=== PATIENT | female | born 1930 | race Caucasian/White ===

== ENCOUNTER 2016-08-25 13:14 | Emergency (ER) | payer MEDICARE ==
[2016-08-25 13:42] VITALS: BP 135/73
--- NOTE | 2016-08-26 00:47 | UC ---
Brady Bland Adam, scribed for Ananya Fitzgerald DO on 08/25/16 at 1455 . General HPI - HPI Summary HPI Summary: Pt is an 86 year old female presenting with cough and congestion. She states that for the past 2-3 weeks she has had a hacking cough and nasal congestion with blood. There is some sputum from the cough but no blood in the sputum. She also reports some sinus pressure, as well as fatigue after coughing spells. She has also been losing weight and atributes it to the fact that she recently relocated from her son and [id number]-led's house to assisted living. Her duaghter-in -law is an excellent broiler chef or cook and since she moved, she has not been eating as well. She has been having 2-3 BM's per week. Her daughter states that she has a Hx of alternating constipation and diarrhea. Pt does not take fiber. She recently moved from her daughter's house to her own apartment. She denies decreased appetite, SOB, CP, fever, chills, night sweats, N/V/D, abdominal pain , dysuria, ear ache, confusion, unsteadiness on feet, rash, and ANDERSEN. PMHx of CHF , COPD, HTN, ICD, and hypothyroidism. Pt is a former smoker. FMHx of cardiac disease and DM. - History of Current Complaint Chief Complaint: UCGeneralIllness Stated Complaint: SINUS ISSUE COUGH LOOSING WT Time Seen by Provider: 08/25/16 14:45 Hx Obtained From: Patient, Family/New Vehicle Sales Consultant Onset/Duration: Gradual Onset, Lasting Days, Still Present Onset Severity: Moderate Current Severity: Moderate Associated Signs & Symptoms: Positive: Cough, Other - Congestion. Negative: Abdominal Pain, Confusion, Chest Pain, Dizziness, Dysuria, Diaphoresis, Edema, Fever, Headache, Hemoptysis, Nausea, SOB, Vomiting, Wheezing, Weakness - Allergy/Home Medications Allergies/Adverse Reactions: Allergies Allergy/AdvReac Type Severity Reaction Status Date / Time Amiodarone Allergy Severe See Comment Verified 08/25/16 13:31 Home Medications: Home Medications Ipratropium Wood (Nasal) [Ipratropium Wood] 2 spray DAILY 08/25/16 [ History Confirmed 08/25/16] Levothyroxine TAB* [Synthroid 75 MCG TAB*] 100 mcg PO DAILY 08/25/16 [History Confirmed 08/25/16] Losartan TAB* [Cozaar TAB*] 2 tab BID 08/25/16 [History Confirmed 08/25/16] PMH/Surg Hx/FS Hx/Imm Hx Endocrine History Of: Reports: Thyroid Disease - meds Cardiovascular History Of: Reports: Cardiac Disorders, Hypertension - on medication, Pacemaker/ICD, Congestive Heart Failure Respiratory History Of: Reports: COPD - Surgical History Surgical History: Yes Surgery Procedure, Year, and Place: Bilateral hips - [place], 1997, 2004. Pacemaker, stent.- 2011. bilat cataract surgery. Apr 2016- Appendectomy - Family History Known Family History: Positive: Cardiac Disease, Diabetes, Other - Cancer - Social History Occupation: Retired Lives: Alone Alcohol Use: None Substance Use Type: None Smoking Status (MU): Former Smoker Have You Smoked in the Last Year: No When Did the Patient Quit Smoking/Using Tobacco: quit 20 years ago - Immunization History Most Recent Influenza Vaccination: 2015 Most Recent Tetanus Shot: within last 10 years Most Recent Pneumonia Vaccination: 2016 Review of Systems Constitutional: Negative Skin: Negative Eyes: Negative ENT: Nasal Discharge Respiratory: Cough Cardiovascular: Negative Gastrointestinal: Negative Genitourinary: Negative Motor: Negative Neurovascular: Negative Musculoskeletal: Negative Neurological: Negative Psychological: Negative All Other Systems Reviewed And Are Negative: Yes Physical Exam Triage Information Reviewed: Yes Appearance: Well-Appearing, No Pain Distress, Well-Nourished Vital Signs: Initial Vital Signs Temp 97.7 F 08/25/16 13:36 Pulse 89 08/25/16 13:36 Resp 18 08/25/16 13:36 BP 135/73 08/25/16 13:36 Pulse Ox 97 08/25/16 13:36 Vital Signs Reviewed: Yes Eyes: Positive: Conjunctiva Clear. Negative: Discharge ENT: Positive: Hearing grossly normal, Other: - Sinus tenderness over left maxillary sinus. Negative: Muffled/hoarse voice Neck exam: Normal Neck: Positive: Supple Respiratory: Positive: Lungs clear, No respiratory distress, No accessory muscle use, Other: - Very mildly prolonged expiration. Negative: Crackles, Rhonchi, Wheezing Cardiovascular: Positive: RRR, No Murmur Abdomen Description: Positive: Nontender, Soft. Negative: CVA Tenderness (R), CVA Tenderness (L), Distended, Guarding Bowel Sounds: Positive: Present Musculoskeletal Exam: Normal Neurological: Positive: Alert, Muscle Tone Normal Psychological Exam: Normal Psychological: Positive: Age Appropriate Behavior Skin Exam: Normal Skin: Positive: Other - Warm, dry, normal color Course/Dx - Differential Dx - Multi-Symptom Differential Diagnoses: Other - Lower respiratory infection, URI, bronchitis, COPD exacerbation Provider Diagnoses: Sinusitis Discharge - Discharge Plan Condition: Stable Disposition: HOME Prescriptions: Albuterol HFA INHALER* [Ventolin HFA Inhaler*] 2 puff INH Q4H PRN #1 mdi PRN Reason: Sob/Wheezing Amoxicillin/Clavulanate TAB* [Augmentin TAB 875*] 875 mg PO BID #20 tab Benzonatate CAP* [Tessalon CAP*] 100 mg PO TID PRN #30 cap PRN Reason: Cough guaiFENesin ER TAB [Mucinex*] 600 mg PO BID PRN #1 box PRN Reason: Cough Patient Education Materials: Sinusitis (ED) Referrals: Haylee Milan MD [Primary Care Provider] - (On 09/02/16 as planned.) Additional Instructions: TRY USING THE NETTI POT IN THE MORNINGS DISCUSSED. YOU MUST ALWAYS USE CLEAN WATER. REMEMBER, POSTURE IS AN IMPORTANT FACTOR IN SINUS DRAINAGE. MOVE YOUR NECK, BREATHE. INHALED BRONCHODILATORS: You have received a prescription for an inhaled bronchodilator -- a medication which stimulates the airways in the lung to dilate. This improves the flow of air in asthma, bronchitis, and emphysema. These medicines have some similarity to adrenaline, and can cause similar side effects: shakiness, racing heart, and a sense of nervousness. These side effects decrease with time. Contact your doctor if these side effects are severe. Do not over-use the medicine. Too-frequent use of the inhaler may make it ineffective. Call your doctor if the inhaler is not controlling your symptoms at the prescribed doses. EXPECTORANT MEDICATION: An expectorant medicine has been prescribed. This type of drug makes mucous thinner, helping the sinuses, nose, and bronchial tubes to remain free of pus and mucous. Expectorants make a cough less severe and more comfortable, and help infected sinuses drain. In general, antihistamines defeat the purpose of the expectorant by making mucous thicker. They should be avoided unless specifically recommended by your physician. TESSALON PERLES: You have received a prescription for Tessalon Perles (benzonatate). This is a non-narcotic medicine for relief of cough. It usually works in about 15- 20 minutes and lasts around four hours. Tessalon Perles should be swallowed. They should not be chewed or dissolved in the mouth (this can produce temporary numbing of the mouth and choking can occur). If you develop any adverse effects such as wheezing, shortness of breath, hives, rash, itching, or lightheadedness, please return at once. AUGMENTIN: Augmentin is a mixture of amoxicillin and clavulanate. Amoxicillin is a member of the penicillin family. It covers the germs likely to cause ear, bronchial, and urinary infections better than plain penicillin. The addition of clavulanate allows it to cover staph infections of the skin, as well as resistant cases of ear and sinus infections. Your physician has chosen Augmentin for you because of the special nature of your situation. Augmentin is best taken with meals. Nausea after taking the medication is rare, but can occur. Diarrhea can occur, particularly in small children. Vaginal yeast infections, and oral thrush in infants are also common. Contact your physician if these problems occur. Allergy to penicillins is common. If you have had an allergic reaction to any drug of the penicillin family, you should never take any other penicillin. Notify your doctor at once if you develop hives, shortness of breath, swelling, or faintness. ANY TIME YOU TAKE AN ANTIBIOTIC, IT IS IMPORTANT TO REPLENISH THE BODY'S BALANCE OF "GOOD" BACTERIA BY EATING HIGH QUALITY CULTURED FOOD SUCH YOGURT, SAURKRAUT OR ILENE CHI AND/OR TAKING A PROBIOTIC SUPPLEMENT. We did not discover any major red flags with regard to your recent weight loss of 2-3 lb. It seems likely the results of moving away from an outstanding broiler chef or cook. FStill, it is important for you to follow up with your Primary Care Physician as scheduled. Given your history of alternating constipation and diarrhea, it would probably be beneficial for you to use probiotic on a regular basis. You may also want to add taking a dose of fiber in the evenings before bed followed by 2-3 stewed prunes. We also recommend that you purchase a Squatty Potty. The documentation as recorded by the Brady barton Adam accurately reflects the service I personally performed and the decisions made by , Ananya Fitzgerald DO.
== END 2016-08-25 15:50 | disposition home or self-care (01) ==
LOC: UCEAST 13:14
DX: J32.9 Chronic sinusitis, unspecified (principal); E07.9 Disorder of thyroid, unspecified; Z95.0 Presence of cardiac pacemaker; I10 Essential (primary) hypertension; I50.9 Heart failure, unspecified; Z87.891 Personal history of nicotine dependence
CPT/HCPCS: 99212; G0463

== ENCOUNTER 2017-05-20 09:10 | Emergency (ER) | payer MEDICARE ==
[2017-05-20 09:58] VITALS: BP 134/66
--- NOTE | 2017-05-20 10:50 | UC ---
Complaint Female HPI - HPI Summary HPI Summary: 86 year old with urinary complaint. increased frequency some confusion per son. no n/v/d. no fever. no flank pain going on for 4 days - History Of Current Complaint Chief Complaint: UCGU Stated Complaint: UTI COMPLAINT Time Seen by Provider: 05/20/17 10:00 Onset/Duration: Gradual Onset Character: Dull Aggravating Factor(s): Nothing Alleviating Factor(s): Nothing Associated Signs And Symptoms: Negative: Fever, Back Pain, Vaginal Bleeding/ Discharge, Vaginal Discharge, Nausea, Vomiting(# Of Episodes =) - Allergies/Home Medications Allergies/Adverse Reactions: Allergies Allergy/AdvReac Type Severity Reaction Status Date / Time Amiodarone Allergy Severe See Comment Verified 05/20/17 09:58 Home Medications: Home Medications Baby Aspirin 1 tab PO DAILY 05/20/17 [History Confirmed 05/20/17] PMH/Surg Hx/FS Hx/Imm Hx Previously Healthy: Yes Cardiovascular History: Cardiac Disease - Surgical History Surgical History: Yes Surgery Procedure, Year, and Place: Bilateral hips - [place], 1997, 2004. Pacemaker, stent.- 2011. bilat cataract surgery. Apr 2016- Appendectomy - Family History Known Family History: Positive: Cardiac Disease, Diabetes, Other - Cancer - Social History Occupation: Retired Lives: Assisted Living Alcohol Use: None Substance Use Type: None Smoking Status (MU): Former Smoker Have You Smoked in the Last Year: No When Did the Patient Quit Smoking/Using Tobacco: quit 20 years ago - Immunization History Most Recent Influenza Vaccination: 03/19 Most Recent Tetanus Shot: within last 10 years Most Recent Pneumonia Vaccination: 2015 Review of Systems Genitourinary: Frequency, Urgency All Other Systems Reviewed And Are Negative: Yes Physical Exam Triage Information Reviewed: Yes Appearance: Well-Appearing, No Pain Distress, Well-Nourished Vital Signs: Initial Vital Signs Temp 97.7 F 05/20/17 09:52 Pulse 74 05/20/17 09:52 Resp 18 05/20/17 09:52 BP 134/66 05/20/17 09:52 Pulse Ox 100 05/20/17 09:52 Vital Signs Reviewed: Yes Eye Exam: Normal ENT Exam: Normal Dental Exam: Normal Neck exam: Normal Neck: Positive: 1 Respiratory Exam: Normal Cardiovascular Exam: Normal Abdominal Exam: Normal Musculoskeletal Exam: Normal Neurological Exam: Normal Psychological Exam: Normal Skin Exam: Normal Complaint Female Dx - Differential Dx/Diagnosis Differential Diagnosis/HQI/PQRI: Urinary Tract Infection Provider Diagnoses: UTI Discharge - Discharge Plan Condition: Good Disposition: HOME Prescriptions: Sulfamethox/Trimethoprim DS* [Bactrim DS 800/160 TAB*] 1 tab PO BID #10 tab Patient Education Materials: Urinary Tract Infection in Women (ED) Referrals: Haylee Milan MD [Primary Care Provider] - 3 Days
--- NOTE | 2017-05-22 16:51 | UC ---
Progress - Progress Note Progress Note: Pt with + UTI Pt on Bactrim No change 05/22/17 1379
== END 2017-05-20 11:00 | disposition home or self-care (01) ==
LOC: UCEAST 09:10
DX: Z87.891 Personal history of nicotine dependence (principal); Z79.82 Long term (current) use of aspirin; N39.0 Urinary tract infection, site not specified; B96.20 Unspecified Escherichia coli [E. coli] as the cause of diseases classified elsewhere
CPT/HCPCS: 81003; 87077; 87086; 87186; 99212; G0463

== ENCOUNTER 2018-01-21 11:29 | Emergency (ER) | payer MEDICARE ==
[2018-01-21 12:59] VITALS: BP 144/71
--- NOTE | 2018-01-21 13:34 | UC ---
Complaint Female HPI - HPI Summary HPI Summary: started 3-5 days ago with urinary frequency has been drinking more water and cranberry juice but little imprvement - History Of Current Complaint Chief Complaint: UCGU Stated Complaint: POSS UTI Time Seen by Provider: 01/21/18 12:54 Hx Obtained From: Patient, Family/Gear Technician Onset/Duration: Gradual Onset Timing: Constant Severity Initially: Mild Severity Currently: Mild Pain Intensity: 0 Character: Burning Aggravating Factor(s): Urination Alleviating Factor(s): Nothing Associated Signs And Symptoms: Positive: Negative - Allergies/Home Medications Allergies/Adverse Reactions: Allergies Allergy/AdvReac Type Severity Reaction Status Date / Time amiodarone Allergy See Comment Verified 01/21/18 13:02 PMH/Surg Hx/FS Hx/Imm Hx Previously Healthy: Yes Endocrine History: Hypothyroidism Cardiovascular History: Cardiac Disease, Hypertension Respiratory History: Asthma - Surgical History Surgical History: Yes Surgery Procedure, Year, and Place: Bilateral hips - , 1997, 2004. Pacemaker, stent.- 2011. bilat cataract surgery. Apr 2016- Appendectomy - Family History Known Family History: Positive: Cardiac Disease, Diabetes, Other - Cancer - Social History Occupation: Retired Lives: Alone Alcohol Use: None Substance Use Type: None Smoking Status (MU): Former Smoker Have You Smoked in the Last Year: No When Did the Patient Quit Smoking/Using Tobacco: quit 20 years ago - Immunization History Most Recent Influenza Vaccination: 03/19 Most Recent Tetanus Shot: within last 10 years Most Recent Pneumonia Vaccination: 2015 Review of Systems Constitutional: Negative Respiratory: Negative Cardiovascular: Negative Gastrointestinal: Negative Genitourinary: Dysuria, Frequency Neurological: Negative All Other Systems Reviewed And Are Negative: Yes Physical Exam Triage Information Reviewed: Yes Appearance: Well-Appearing, No Pain Distress, Well-Nourished Vital Signs: Initial Vital Signs Temp 97.7 F 01/21/18 12:52 Pulse 82 01/21/18 12:52 Resp 18 01/21/18 12:52 BP 144/71 01/21/18 12:52 Pulse Ox 98 01/21/18 12:52 Vital Signs Reviewed: Yes Neck exam: Normal Respiratory Exam: Normal Cardiovascular Exam: Normal Abdominal Exam: Normal Abdomen Description: Positive: Nontender. Negative: CVA Tenderness (R), CVA Tenderness (L) Musculoskeletal Exam: Normal Neurological Exam: Normal Psychological Exam: Normal Skin Exam: Normal Complaint Female Dx - Differential Dx/Diagnosis Differential Diagnosis/HQI/PQRI: Urinary Tract Infection, Other - vaginal yeast Provider Diagnoses: UTI Discharge - Sign-Out/Discharge Documenting (check all that apply): Patient Departure - Discharge Plan Condition: Good Disposition: HOME Prescriptions: Amoxicillin/Clavulanate TAB* [Augmentin TAB 500 mg*] 500 mg PO BID #14 tab Patient Education Materials: Urinary Tract Infection in Women (DC) Referrals: Haylee Milan MD [Primary Care Provider] - 2 Days (if no better) Additional Instructions: drink plenty of fluids use antibiotic as directed return if you experience fever or chills - Billing Disposition and Condition Condition: GOOD Disposition: Home
--- NOTE | 2018-01-23 15:57 | UC ---
- Progress Note Progress Note: Urine culture final with aerococcus urinae - report suggests susceptible to amoxicillin. On augmentin. No change Discharge - Sign-Out/Discharge Documenting (check all that apply): Post-Discharge Follow Up - Discharge Plan Condition: Good Disposition: HOME Prescriptions: Amoxicillin/Clavulanate TAB* [Augmentin TAB 500 mg*] 500 mg PO BID #14 tab Patient Education Materials: Urinary Tract Infection in Women (DC) Referrals: Haylee Milan MD [Primary Care Provider] - 2 Days (if no better) Additional Instructions: drink plenty of fluids use antibiotic as directed return if you experience fever or chills - Billing Disposition and Condition Condition: GOOD Disposition: Home
== END 2018-01-21 13:50 | disposition home or self-care (01) ==
LOC: UCEAST 11:29
DX: N39.0 Urinary tract infection, site not specified (principal); B96.89 Other specified bacterial agents as the cause of diseases classified elsewhere; Z88.8 Allergy status to other drugs, medicaments and biological substances; I10 Essential (primary) hypertension
CPT/HCPCS: 81003; 87086; 87088; 99212; G0463

== ENCOUNTER 2018-04-29 11:13 | Emergency (ER) | payer MEDICARE ==
[2018-04-29 12:02] VITALS: BP 117/41
--- NOTE | 2018-04-29 12:18 | UC ---
Complaint Female HPI - HPI Summary HPI Summary: Dysuria and incr. urination x3 days. lives alone. denies n/v, back pain, fever , abd pain. has never had this before. drinking cranberry juice. - History Of Current Complaint Chief Complaint: UCGU Stated Complaint: FREQUENT URINATION Time Seen by Provider: 04/29/18 11:45 Hx Obtained From: Patient, Family/Visual Display Manager - son ?: No Onset/Duration: Lasting Days Timing: Constant Severity Initially: Mild Severity Currently: None Pain Intensity: 0 Character: Not Applicable Aggravating Factor(s): Urination Alleviating Factor(s): Nothing Associated Signs And Symptoms: Positive: Negative - Risk Factors Ectopic Risk Factor: Negative Ovarian Torsion Risk Factor: Negative - Allergies/Home Medications Allergies/Adverse Reactions: Allergies Allergy/AdvReac Type Severity Reaction Status Date / Time amiodarone Allergy See Comment Verified 04/29/18 11:50 Home Medications: Home Medications Spiriva Inhaler DEVICE* [Tiotropium Inhaler DEVICE*] 1 puff INH DAILY 04/29/18 [ History Confirmed 04/29/18] PMH/Surg Hx/FS Hx/Imm Hx Previously Healthy: Yes Cardiovascular History: Cardiac Disease, Hypertension, Pacemaker/ICD, Atrial Fibrillation Respiratory History: COPD - Surgical History Surgical History: Yes Surgery Procedure, Year, and Place: Bilateral hips - , 1997, 2004. Pacemaker, stent.- 2011. bilat cataract surgery. Apr 2016- Appendectomy - Family History Known Family History: Positive: Cardiac Disease, Diabetes, Other - Cancer - Social History Alcohol Use: None Substance Use Type: None Smoking Status (MU): Former Smoker Have You Smoked in the Last Year: No When Did the Patient Quit Smoking/Using Tobacco: quit 20 years ago - Immunization History Most Recent Influenza Vaccination: 03/19 Most Recent Tetanus Shot: within last 10 years Most Recent Pneumonia Vaccination: 2016 Review of Systems Constitutional: Negative Skin: Negative Respiratory: Negative Cardiovascular: Negative Gastrointestinal: Negative Genitourinary: Dysuria, Frequency - DENIES HEMATURIA, VAGINAL PAIN, Urgency All Other Systems Reviewed And Are Negative: Yes Physical Exam Triage Information Reviewed: Yes Appearance: Well-Appearing, Other: - +HAS WALKER Vital Signs: Initial Vital Signs Temp 96.9 F 04/29/18 11:56 Pulse 75 04/29/18 11:56 Resp 20 10/28/18 11:56 BP 117/41 04/29/18 11:56 Pulse Ox 100 04/29/18 11:56 Vital Signs Reviewed: Yes Respiratory Exam: Normal Cardiovascular Exam: Normal Abdomen Description: Positive: Nontender, Soft, Other: - no CVAT BILAT.. Negative: CVA Tenderness (R), CVA Tenderness (L), Distended, Guarding Complaint Female Dx - Course Course Of Treatment: dysuria x2-3 days. afebrile. UA: +leuks, no nitrites. will send for cx. will tx empirically. - Differential Dx/Diagnosis Differential Diagnosis/HQI/PQRI: Sexually Transmitted Disease, Ureteral Stone, Urinary Tract Infection Provider Diagnoses: UTI Discharge - Sign-Out/Discharge Documenting (check all that apply): Patient Departure All imaging exams completed and their final reports reviewed: No Studies - Discharge Plan Condition: Good Disposition: HOME Prescriptions: Sulfamethox/Trimethoprim DS* [Bactrim DS 800/160 TAB*] 1 tab PO DAILY #7 tab Patient Education Materials: Urinary Tract Infection in Women (ED) Referrals: Haylee Milan MD [Primary Care Provider] - Additional Instructions: return if symptoms have not resolved. - Billing Disposition and Condition Condition: GOOD Disposition: Home
--- NOTE | 2018-05-01 16:52 | UC ---
- Progress Note Progress Note: urine + Strep Gallolyticus Pt on Bactrim await sensitivity no change 05/01/18 Discharge - Sign-Out/Discharge Documenting (check all that apply): Post-Discharge Follow Up All imaging exams completed and their final reports reviewed: No Studies - Discharge Plan Condition: Good Disposition: HOME Prescriptions: Sulfamethox/Trimethoprim DS* [Bactrim DS 800/160 TAB*] 1 tab PO DAILY #7 tab Sulfamethox/Trimethoprim DS* [Bactrim DS 800/160 TAB*] 1 tab PO DAILY #7 tab Patient Education Materials: Urinary Tract Infection in Women (ED) Referrals: Haylee Milan MD [Primary Care Provider] - Additional Instructions: return if symptoms have not resolved. - Billing Disposition and Condition Condition: GOOD Disposition: Home
== END 2018-04-29 12:50 | disposition home or self-care (01) ==
LOC: UCEAST 11:13
DX: N39.0 Urinary tract infection, site not specified (principal); I10 Essential (primary) hypertension; J44.9 Chronic obstructive pulmonary disease, unspecified; Z95.0 Presence of cardiac pacemaker; Z88.8 Allergy status to other drugs, medicaments and biological substances; Z87.891 Personal history of nicotine dependence
CPT/HCPCS: 81003; 87086; 99212; G0463

== ENCOUNTER 2018-05-02 11:30 | Inpatient (IN) | payer MEDICARE ==
[2018-05-02] MEDS ORDERED: NS 0.9% 1000 ML* 1,000 ML IV ONE (12:07)
--- NOTE | 2018-05-02 12:07 | ED ---
Neurological HPI - HPI Summary HPI Summary: This patient is an 87 year old MF brought in by ambulance to ED with a chief complaint of weakness and dizziness since 0800 this morning. The patient was in the bathroom where she tried to stand up but felt dizzy/light-headed then fell. She also reports trauma to her L ankle. After falling, she tried to get up, but couldnt because she was weak. The patient rates the pain 3/10 in severity. Symptoms aggravated by nothing. Symptoms alleviated by nothing. Patient reports light-headed when she fell and a small cut on her L elbow. Patient denies head trauma, LOC, CP, and abdominal pain. She is currently being treated for a UTI. - History of Current Complaint Chief Complaint: EDWeakness Stated Complaint: GENERAL ILLNESS Time Seen by Provider: 05/02/18 11:48 Hx Obtained From: Patient Onset/Duration: Sudden Onset, Started hours ago Onset Severity: Mild Current Severity: Mild Pain Intensity: 3 Pain Scale Used: 0-10 Numeric Aggravating: Nothing Alleviating: Nothing Associated Signs and Symptoms: Positive: Weakness, Dizziness, Lightheadness. Negative: Chest Pain - Additional Pertinent History Primary Care Physician: [id number] - Allergy/Home Medications Allergies/Adverse Reactions: Allergies Allergy/AdvReac Type Severity Reaction Status Date / Time amiodarone Allergy See Comment Verified 04/29/18 11:50 Home Medications: Home Medications Acetaminophen TAB* [Tylenol TAB*] 650 mg PO Q6H PRN 05/02/18 [History Confirmed 05/02/18] Aspirin EC TAB* [Ecotrin EC Low Dose 81 MG*] 81 mg PO DAILY 05/02/18 [History Confirmed 05/02/18] Calcium Carbonate/Vitamin D3 [Calcium 500 + Vit D Caplet] 1 tab PO DAILY [History Confirmed 05/02/18] Docusate CAP* [Colace Cap*] 100 mg PO BID PRN 05/02/18 [History Confirmed ] Gabapentin CAP(*) [Neurontin 300 CAP(*)] 1,500 mg PO BEDTIME 05/02/18 [History Confirmed 05/02/18] Ipratropium Br (Nf)0.03% Nasal [Ipratropium [place]] 2 spray BOTH NARES QAM PRN 05/02/18 [History Confirmed 05/02/18] Levothyroxine TAB* [Synthroid TAB*] 88 mcg PO DAILY 05/02/18 [History Confirmed 05/02/18] Magnesium Oxide [Magnesium] 250 mg PO DAILY 05/02/18 [History Confirmed 05/02/18 ] Simvastatin TAB(NF) [Zocor(NF)] 20 mg PO QPM 05/02/18 [History Confirmed ] Sulfamethox/Trimethoprim DS* [Bactrim DS 800/160 TAB*] 1 tab PO BID 05/02/18 [ History Confirmed 05/02/18] proPAFENone TAB* [Rythmol*] 150 mg PO BID 05/02/18 [History Confirmed 05/02/18] PMH/Surg Hx/FS Hx/Imm Hx Endocrine/Hematology History: Reports: Hx Thyroid Disease Denies: Hx Diabetes Cardiovascular History: Reports: Hx Congestive Heart Failure, Hx Hypertension - on medication, Hx Pacemaker/ICD, Other Cardiovascular Problems/Disorders - HEART DISEASE Respiratory History: Reports: Hx Chronic Obstructive Pulmonary Disease (COPD) Denies: Hx Asthma GI History: Reports: Hx Obstructive Bowel Denies: Hx Ulcer Musculoskeletal History: Reports: Hx Arthritis, Hx Back Problems Sensory History: Reports: Hx Cataracts, Hx Contacts or Glasses Denies: Hx Hearing Aid Opthamlomology History: Reports: Hx Cataracts, Hx Contacts or Glasses - Surgical History Surgery Procedure, Year, and Place: Bilateral hips - [place], 1997, 2004. Pacemaker, stent.- 2011. bilat cataract surgery. Apr 2016- Appendectomy Hx Anesthesia Reactions: No - Immunization History Date of Influenza Vaccine: 2017 Infectious Disease History: No Infectious Disease History: Reports: Hx Shingles Denies: Hx Clostridium Difficile, Hx Hepatitis, Hx Human Immunodeficiency Virus (HIV), Hx of Known/Suspected MRSA, Hx Tuberculosis, Hx Known/Suspected VRE , Hx Known/Suspected VRSA, History Other Infectious Disease, Traveled Outside the [place] in Last 30 Days - Family History Known Family History: Positive: Cardiac Disease, Diabetes, Other - Cancer - Social History Alcohol Use: None Substance Use Type: Reports: None Hx Tobacco Use: No Smoking Status (MU): Former Smoker Have You Smoked in the Last Year: No Review of Systems Negative: Chest Pain Negative: Abdominal Pain Positive: Other - trauma to L ankle, denies head trauma Positive: Other - small cut on L elbow Neurological: Other - dizziness/light-headedness; denies LOC Positive: Weakness All Other Systems Reviewed And Are Negative: Yes Physical Exam - Summary Physical Exam Summary: GENERAL: Patient is a well-developed and nourished F who is lying comfortable in the stretcher. Patient is not in any acute respiratory distress. HEAD AND FACE: Normocephalic EYES: PERRLA, EOMI x 2. EARS: Hearing grossly intact. MOUTH: Oropharynx within normal limits. NECK: Supple, trachea is midline, no adenopathy, no JVD, no carotid bruit. CHEST: Symmetric, no tenderness at palpation LUNGS: Clear to auscultation bilaterally. No wheezing or crackles. CVS: Regular rate and rhythm, S1 and S2 present, no murmurs or gallops appreciated. ABDOMEN: Soft, non-tender. Bowel sounds are normal. No abdominal abnormal pulsations. EXTREMITIES: Full ROM in all major joints, no edema, no cyanosis or clubbing. Tenderness to palpation over the lateral malleolus on the L side of her L foot with swelling and ecchymosis over the area, but has FROM of the L foot. NEURO: Alert and oriented x 3. No acute neurological deficits. Speech is normal and follows commands. SKIN: Dry and warm. Skin tear to L elbow but has FROM. GCS: 15 Triage Information Reviewed: Yes Vital Signs On Initial Exam: Initial Vitals Temp Pulse Resp BP Pulse Ox 97.9 F 71 19 121/44 99 05/02/18 11:43 05/02/18 11:43 05/02/18 11:43 05/02/18 11:43 05/02/18 11:43 Vital Signs Reviewed: Yes Diagnostics - Vital Signs Vital Signs Temp Pulse Resp BP Pulse Ox 05/02/18 11:43 97.9 F 71 19 121/44 99 - Laboratory Result Diagrams: 05/03/18 05:17 05/03/18 05:17 Lab Statement: Any lab studies that have been ordered have been reviewed, and results considered in the medical decision making process. - Radiology CXR Radiology Interpretation Completed By: Radiologist - NO ACTIVE CARDIOPULMONARY DISEASE IS NOTED. PACEMAKER LEADS ARE IN PLACE. Dr. Martinez has reviewed this radiology report. L ankle XR Radiology Interpretation Completed By: Radiologist - OSTEOPENIA WITH OBLIQUE NONDISPLACED FRACTURE OF THE DISTAL FIBULA. Dr. Martinez has reviewed this radiology report. - CT Brain CT CT Interpretation Completed By: Radiologist - No intracranial mass or hemorrhage is noted. Chronic ischemic White matter change and atrophy. Dr. Martinez has reviewed this radiology report. - EKG 1212 Cardiac Rate: NL - 70 BPM EKG Rhythm: Sinus Rhythm Summary of EKG Findings: incomplete RBBB, new from 04/19/2016. Course/Dx - Course Assessment/Plan: This patient is an 87 year old MF brought in by ambulance to ED with a chief complaint of weakness and dizziness since 0800 this morning. In the ED course, the patient was given Reglan, Antivert, and fluids. EKG done at 1212 reveals NSR at 70 BPM and incomplete RBBB which is new from 04/19/2016. CXR reveals NO ACTIVE CARDIOPULMONARY DISEASE IS NOTED. PACEMAKER LEADS ARE IN PLACE. L ankle XR reveals OSTEOPENIA WITH OBLIQUE NONDISPLACED FRACTURE OF THE DISTAL FIBULA. Brain CT reveals No intracranial mass or hemorrhage is noted. Chronic ischemic White matter change and atrophy. Workup is remarkable with hemoglobin of 5.6. This patient will be admitted. Case discussed with hospitalist. I discussed results with patient. The patient agrees with this plan. - Diagnoses Provider Diagnoses: Anemia, Fracture of left ankle - Physician Notifications Discussed Care Of Patient With: Tila Herrera Time Discussed With Above Provider: 13:22 Instructed by Provider To: Admit As Inpatient - Critical Care Time Critical Care Time: 30-74 min Discharge - Sign-Out/Discharge Documenting (check all that apply): Patient Departure - admit - Discharge Plan Condition: Stable Disposition: ADMITTED TO [facility] - Billing Disposition and Condition Condition: STABLE Disposition: Admitted to [facility] - Attestation Statements Document Initiated by Scribe: Yes Documenting Scribe: Jas Gorman Provider For Whom Zenobia is Documenting (Include Credential): Zan Martinez MD Scribe Attestation: Jas Bland, scribed for Zan Martinez MD on 05/04/18 at 0413. Scribe Documentation Reviewed: Yes Provider Attestation: The documentation as recorded by the annaibJas welsh accurately reflects the service I personally performed and the decisions made by me, Zan Martinez MD
[2018-05-02] MEDS ORDERED: Metoclopramide IV* 5 MG/ML 2 ML VIAL IV ONE (12:08)
[2018-05-02] MEDS ORDERED: Meclizine TAB* 12.5 MG PO ONE (12:08)
[2018-05-02 12:31] LABS: Hematocrit 18 % (35-47); Hemoglobin 5.6 g/dl (12.0-16.0); Mean Corpuscular HGB Conc 31 g/dl (31-36); Mean Corpuscular Hemoglobin 23 pg (27-31); Mean Corpuscular Volume 75 fL (80-97); Mean Platelet Volume 7.5 um3 (7.4-10.4); Platelet Count 320 10^3/ul (150-450); Red Blood Count 2.43 10^6/ul (4.00-5.40); Red Cell Distribution Width 19 % (10.5-15)
[2018-05-02 12:38] LABS: INR 1.4 (0.77-1.02)
[2018-05-02 12:45] LABS: EGFR Non-African American 23.8 (>60)
[2018-05-02 12:56] LABS: ABS Basophils 0.1 10^3/ul (0-0.2); ABS Eosinophils 0 10^3/ul (0-0.6); ABS Lymphocytes 1.1 10^3/ul (1.0-4.8); ABS Monocytes 0.8 10^3/ul (0-0.8); ABS Nucleated RBC 0 10^3/ul; Eosinophil % 0.2 % (0-6); Lymphocyte % 11.4 % (25-47); Nucleated Red Blood Cells % 0
--- NOTE | 2018-05-02 13:21 | RAD ---
Indication: Cough. Single frontal view of the chest performed at 1220 hours was reviewed. Comparison is made with previous exam dated September 02, 2016. No mediastinal shift is noted. Heart is of normal size and configuration. Lung meza appear clear. Pacemaker leads are in place. No changes noted since prior exam. IMPRESSION: NO ACTIVE CARDIOPULMONARY DISEASE IS NOTED. PACEMAKER LEADS ARE IN PLACE.
--- NOTE | 2018-05-02 13:24 | RAD ---
HISTORY: Injury, left ankle pain and bruising COMPARISONS: None VIEWS: 3 , Frontal, lateral, and oblique views of the left ankle FINDINGS: BONE DENSITY: There is diffuse osteopenia. BONES: There is an oblique nondisplaced fracture of the distal fibula. JOINTS: There is no arthropathy. ALIGNMENT: There is no dislocation. SOFT TISSUES: Unremarkable. OTHER FINDINGS: None. IMPRESSION: OSTEOPENIA WITH OBLIQUE NONDISPLACED FRACTURE OF THE DISTAL FIBULA.
--- NOTE | 2018-05-02 13:54 | RAD ---
Indication: Urinary tract infection, weakness. CT of the brain performed without IV contrast. Ventricular structures are midline. No midline shift is noted. The extra-axial spaces are unremarkable. There is no evidence of intracranial mass or hemorrhage. No other high or low density lesions identified. Prominent atrophy and periventricular signal abnormalities consistent with chronic ischemic White matter change is noted. Mastoid air cells and paranasal sinuses are unremarkable. IMPRESSION: No intracranial mass or hemorrhage is noted. Chronic ischemic White matter change and atrophy.
[2018-05-02] MEDS ORDERED: Al Hydrox/Mg Hydrox/Simet LIQ* 30 ML UDC PO PRN (14:29)
[2018-05-02] MEDS ORDERED: Ondansetron INJ* 2 MG/ML VIAL IV PRN (14:29)
--- NOTE | 2018-05-02 15:12 | PN ---
Hospitalist Progress Note Date of Service: 05/02/18 HOSPITALIST ADDENDUM Case reviewed and d/w Ashlee Jones [facility]. Mrs West is an 87yo F with PMH of Afib on Xarelto, HTN, CAD, who presents to ED with c/o weakness, near syncope and fall. She's found to have severe anemia, but no overt signs of active GI bleed at this time. She'll be admitted to ICU for close monitoring, started on PPI, transfused 2 PRBC, and GI consult will be requested. She was also found to have left distal fibula fracture and Ortho will be called. I'm in agreement with current management.
[2018-05-02] MEDS: NS 0.9% 1000 ML* 1,000 ML IV SCH (15:30)
[2018-05-02 17:59] LABS: Urine Appearance Cloudy; Urine Blood Negative (Negative); Urine Color Yellow; Urine Ketones Negative (Negative); Urine Protein Negative (Negative); Urine Red Blood Cell Absent (Absent); Urine Specific Gravity 1.011 (1.010-1.030); Urine Urobilinogen Negative (Negative); Urine White Blood Cell 1+(6-10/hpf) (Absent)
[2018-05-02] MEDS: Atorvastatin* 10 MG TAB PO SCH (18:42)
--- NOTE | 2018-05-02 20:03 | HP ---
AMENDED REPORT NOW INCLUDES DESIGNATED COSIGNER CC: Dr. Haylee Milan; Dr. Ceci Osuna. * HISTORY AND PHYSICAL: DATE OF ADMISSION: 05/02/18 PRIMARY CARE PROVIDER: Dr. Haylee Milan. HAND CANDY DIPPER: Dr. Ceci Osuna. ATTENDING PHYSICIAN: Dr. Tila Perez * (dictated by Ashlee Jones NP). CHIEF COMPLAINT: 1. Weakness. 2. Dizziness. 3. Fall. HISTORY OF PRESENT ILLNESS: Ms. West is an 87-year-old female with past medical history of AFib, on chronic anticoagulation; coronary artery disease; hypertension; hyperlipidemia; COPD; hypothyroidism; and CKD, stage 3, who presents to the emergency room today after sustaining a fall at home. The patient notes that she was up this morning in her bathroom at approximately 6:30 , she began feeling weak, dizzy and fell when she getting off the toilet. She was not able to get up off the floor herself, but she was able to crawl to an area of her apartment that has a call button that she can press in case of emergencies. She pressed the call button and the staff at the apartment complex called EMS. The patient notes that she has been dizzy and significant short of breath for the past week; however, her son notes that approximately 1 month ago, she stopped exercising on her recumbent bike due to increasing shortness of breath. This is new for the patient. Although she has COPD, she has been able to exercise on her recumbent bike and attend exercise classes without significant shortness of breath in the past. The son also feels as though the patient looks slightly pale. The son reports that the patient's last fall prior to this was approximately 1-1/2 years ago and was a mechanical fall. The patient was seen at [facility] this past Monday and diagnosed with a urinary tract infection, for which she was prescribed Bactrim. She has been taking this as ordered. She denies any urinary symptoms on exam. In the emergency room, the patient had labs, which showed anemia with a hemoglobin of 5.6, as well as acute kidney injury with an elevated creatinine and an elevated lactic acid. Her troponin was 0.01. She had a chest x-ray, which showed no acute findings. She had a brain CT, which showed no acute findings. She additionally had an ankle x-ray due to some edema and bruising noted to her left ankle. The ankle x-ray was significant for an oblique nondisplaced fracture of the distal fibula that was splinted in the emergency room. She additionally had a stool occult for blood, which was negative. Because of the concern for her significant anemia, the Hospitalist service was asked to evaluate for admission. PAST MEDICAL HISTORY: 1. AFib, on chronic anticoagulation. 2. Coronary artery disease. 3. Hypertension. 4. Hyperlipidemia. 5. COPD. 6. Hypothyroidism. 7. CKD, stage 3. PAST SURGICAL HISTORY: 1. Appendectomy. 2. Cardiac catheterization with stent placement in 2011. 3. Pacemaker placement in 2012. 4. Bilateral total hip arthroplasties. 5. Bilateral cataract extraction. 6. Tonsillectomy with adenoidectomy. HOME MEDICATIONS: 1. Acetaminophen 650 mg p.o. q.6 hours p.r.n. 2. Aspirin 81 mg p.o. daily. 3. Calcium 500 plus vitamin D 1 tab p.o. daily. 4. Docusate 100 mg p.o. b.i.d. p.r.n. 5. Gabapentin 1500 mg p.o. at bedtime. 6. Ipratropium 2 sprays both nares daily p.r.n. 7. Levothyroxine 88 mcg p.o. daily. 8. Losartan 50 mg p.o. b.i.d. 9. Magnesium oxide 250 mg p.o. daily. 10. Propafenone 150 mg p.o. b.i.d. 11. Xarelto 15 mg p.o. daily. 12. Simvastatin 20 mg p.o. daily. 13. Spiriva 1 puff daily. 14. Bactrim DS 800/160 one tab p.o. b.i.d. ALLERGIES: AMIODARONE. FAMILY HISTORY: Father at 47, had diabetes. Mother at 53, had lung cancer. Sister , had diabetes. SOCIAL HISTORY: The patient has a 50-pack year smoking history. She denies any alcohol or recreational drug use. She is retired. She lives in a senior apartment in [place]. The patient's son, Rogers Houston, will be her surrogate decision maker in the event she is unable to make her own decisions. His phone number is [phone]. REVIEW OF SYSTEMS: An 11-point review of systems was performed and all the pertinent positive and negative findings are in the HPI. All other systems are negative. PHYSICAL EXAMINATION GENERAL: Ms. West is a well-developed, well-nourished, elderly white woman, lying in bed, in no acute distress. She appears her stated age. VITAL SIGNS: Temp 97.9, heart rate 71, respiratory rate 20, oxygen saturation 99% on 2 L nasal cannula, blood pressure 121/44. HEENT: Head is normocephalic and atraumatic. Visual meza are grossly intact. Pupils are equal, round, and reactive to light and accommodation. Extraocular movements intact. Hearing is grossly intact. Mucous membranes are moist and without lesions. NECK: Full range of motion. Thyroid not palpable. Trachea at midline. No lymphadenopathy. RESPIRATORY: Symmetrical chest expansion. No chest wall deformities. Lungs are clear to auscultation throughout. No rhonchi, wheezes, or rubs. CARDIOVASCULAR: Regular rate and rhythm. S1, S2 present. No murmurs, rubs, or gallops. No JVD. ABDOMEN: Soft, nontender to palpation. Bowel sounds are normoactive throughout. No bruits appreciated. No hepatosplenomegaly. EXTREMITIES: Skin warm and smooth bilaterally. No edema to the right lower extremity. The left lower extremity cannot be assessed for edema due to the presence of a splint. Pedal pulse is 2+ to the right lower extremity. The patient has intact movement and sensation to the left toes. MUSCULOSKELETAL: Full range motion except for the splinted left ankle. NEURO: Awake, alert, and oriented x4, though slightly forgetful. Cranial nerves II through XII grossly intact. Moves all extremities. Strength is 4/5 in upper extremities bilaterally. SKIN: Grossly intact without lesions. DIAGNOSTIC STUDIES/LAB DATA: WBC 10.0, RBC 2.43, hemoglobin 5.6, hematocrit 18 , platelets 320. INR 1.4. Sodium 135, potassium 4.8, chloride 104, carbon dioxide 22, BUN 36, creatinine 1.99, glucose 85, lactic acid 2.2, magnesium 2.2. Troponin 0.01. TSH 0.21. Chest x-ray reads as no active cardiopulmonary disease, pacemakers leads are in place. This was personally reviewed. Brain CT reads as no intracranial mass or hemorrhage is noted, chronic ischemic white matter change and atrophy. Left ankle x-ray reads as osteopenia with oblique nondisplaced fracture of the distal fibula. EKG shows normal sinus rhythm with a rate of 70. No ischemic changes. This was personally reviewed. ASSESSMENT AND PLAN: Ms. West is an 87-year-old female with past medical history of atrial fibrillation, coronary artery disease, hypertension, hyperlipidemia, chronic obstructive pulmonary disease, hypothyroidism and chronic kidney disease stage 3, who presents to the emergency room today after a fall secondary to dizziness and weakness and was found to be severely anemic with a hemoglobin of 5.6. The patient will be admitted inpatient for: 1. Anemia. The patient's H and H is currently 5.6 and 18. She has been ordered 2 units of packed red blood cells. She will have a CBC an hour after the second unit. Her guaiac in the emergency room was negative and there was no clear source of bleeding, although this does appear to be a slow bleed due to the length of her symptoms. I have consulted Dr. Alvarado with Gastroenterology, who will see the patient today. She will likely do an EGD tomorrow with possible colonoscopy on Monday. I will hold the patient's Xarelto at this point, though I will continue her aspirin due to the presence of coronary artery disease and a stent. The patient has a CHADS2-VASc score of 4, indicating a 4.8% risk of cerebrovascular accident per year and a HAS-BLED score of 4, indicating 8.7 bleeds per 100 patient years. Therefore, at this point, the risk of bleeding is greater than the risk of stroke and therefore her Xarelto will be held. I have additionally placed her on IV Protonix q.12. Dr. Alvarado has requested iron studies, which I have ordered and are pending at this time. The patient's lactic acid was elevated on admission. I suspect this was related to hypovolemia and not an infectious process. She was given IV fluids and her lactic has corrected to 0.9. 2. Syncope. The patient had a syncopal episode after experiencing weakness and dizziness. This is secondary to her anemia and hypovolemia. I will resuscitate her with normal saline, though I do not believe she needs a cardiac workup for her syncope. 3. [id number] kidney injury. The patient's creatinine today is 1.99. It appears as though her baseline is around 1.3. I will give her normal saline at a rate of 125 and we will recheck her BMP in the morning. This acute kidney injury is secondary to hypovolemia. 4. Left ankle fracture. The patient's left ankle was splinted in the emergency room. She does not complain of any pain to the left ankle at this time. I will consult Ortho to determine further management, though at this point, she will be non-weight bearing to the left leg. 5. Urinary tract infection. The patient was diagnosed with a urinary tract infection on Monday at [facility]. Her urine culture at that point grew Streptococcus gallolyticus. We will check another urinalysis and urine culture here, though I will keep her on Bactrim at this time. I will note that the Bactrim has been decreased from double strength to regular strength due to her worsened kidney function. I may ultimately change her to ceftriaxone pending the urine culture sensitivities. 6. Atrial fibrillation. The patient is in normal sinus rhythm at this time. As I noted above, we are holding her Xarelto due to her increased risk of bleeding. I will continue her propafenone. 7. Coronary artery disease. I will continue the patient's aspirin and statins. 8. Hypertension. The patient is currently normotensive. I will hold her losartan at this point due to her bump in creatinine. This can likely be restarted tomorrow when her kidney function is back to baseline. 9. Chronic obstructive pulmonary disease. The patient can continue her Spiriva. 10. Hypothyroidism. The patient can continue her levothyroxine. Her TSH is low, though I will defer any dose adjustments to her primary care provider. 11. Fluids, electrolytes, and nutrition: I have placed this patient on fluids as noted above. Electrolytes are within normal limits. She is n.p.o. at this time pending a GI consult. 12. Code status: The patient wishes to be a DNR. There is a MOLST on file with the hospital. 13. DVT prophylaxis: According to the DVT Risk Assessment, the patient scores a 5 putting her at highest risk. She will not receive VTE medication due to her anemia and as noted above, I am holding her Xarelto. I have ordered SCDs for DVT prophylaxis. TIME SPENT: Approximately 60 minutes were spent on this admission, greater than half of that time spent with the patient and her son obtaining my history, performing my physical exam, and reviewing the plan of care. This case has been reviewed with my attending, Dr. Perez, who is in agreement with the plan of care. ASHLEE JONES, STRATEGY LEAD [id number]/CPS #: [id number] BERENICE
[2018-05-02] MEDS ORDERED: Sulfamethox/Trimethoprim SS 400/80* TAB PO SCH (21:00)
--- NOTE | 2018-05-02 21:01 | CONS ---
GASTROENTEROLOGY CONSULTATION REPORT: DATE OF CONSULT: 05/02/18 REQUESTING PHYSICIAN: Dr. Perez. REASON FOR CONSULT: Severe anemia. HISTORY OF PRESENT ILLNESS: Ms. West is an 87-year-old woman with a history of AFib, on Xarelto, CAD s/p pacemaker, hypertension, COPD, who is brought in to the ER with dizziness, near syncope, and fall. Ms. West has noticed increased dizziness and weakness over past few days to weeks. She says that she has been getting antibiotic treatments for UTI recently. This morning, she felt quite lightheaded and nearly passed out. She fell and injured her left ankle. She was brought to the ER for evaluation. Hemodynamically, she has been stable since arrival to the ER with normal heart rate in the 70s and blood pressure that was 130/94 on arrival. Further evaluation remarkable for a hematocrit of 18 and a hemoglobin of 5.6. Imaging of her ankle demonstrated a distal fibular fracture on the left. Admitted to ICU for monitoring. GI consulted given the anemia. On interview, Ms. West says that she is feeling tired but overall fairly well. She denies any GI symptoms including heartburn, dysphagia, nausea, vomiting, abdominal pain, significant constipation, or diarrhea. She says that she has a bowel movement every day or every other day, which tends to be soft. Her stools tend to be brown. She has not noted any melena or hematochezia. She does not think she has ever had an upper endoscopy. She thinks she has had at least 1 or 2 colonoscopies in the past when she was in [place]. She thinks their may have been mention of a polyp, but she is not certain. She is only on Xarelto and aspirin. She does not have any other NSAID use. She is not on a PPI. PAST MEDICAL HISTORY: AFib, on Xarelto; hypertension; coronary artery disease; thyroid disease; arthritis; cataracts; history of a pacemaker placement; COPD. PAST SURGICAL HISTORY: Bilateral hip replacements, pacemaker and stent placement in 2012, cataract surgery, appendectomy. MEDICATIONS: Include: 1. Aspirin 81 mg daily. 2. Xarelto 15 mg daily. 3. Spiriva. 4. Propafenone. 5. Losartan. 6. Levothyroxine. 7. Gabapentin. 8. Bactrim. 9. DuoNeb. 10. Docusate. 11. Tylenol as needed. ALLERGIES: AMIODARONE listed. FAMILY HISTORY: The patient denies any history of GI or liver disease. No known colon polyps or cancer in the family. SOCIAL HISTORY: The patient denies any history of alcohol use. No tobacco or drug use. She is a former smoker. REVIEW OF SYSTEMS: The patient reports some ankle pain related to the fibular fracture. Denies any other symptoms on a 12-point review of systems. PHYSICAL EXAM: Vital Signs: Heart rate 72, blood pressure 130/94, 98% on room air. General: Elderly, pleasant woman. Pale. No acute distress. HEENT: Mucous membranes moist. Oropharynx is clear. Cardiovascular: Regular rate and rhythm. Lungs: Clear to auscultation bilaterally. Normal work of breathing. Abdomen: Positive bowel sounds. Soft, nontender, nondistended. Extremities: No edema. Left ankle is in a brace. LAB DATA: Labs reviewed. White count 10, hemoglobin 5.6, hematocrit 18, MCV 75 , RDW 19. INR 1.4. BUN 36, creatinine 1.99. Lactic acid normal at 0.9. LFTs unremarkable. TSH low at 0.21. Iron studies requested and demonstrated iron deficiency with iron that is less than 15 and a TSAT of 3 and ferritin is 10.3. DIAGNOSTIC STUDIES: Chest x-ray reviewed. No active disease. Demonstrates pacemaker leads. An ankle x-ray demonstrates a fibular fracture. A brain CT negative for any mass or hemorrhage. IMPRESSION AND RECOMMENDATIONS: is an 87-year-old woman with a history of coronary artery disease, status post pacemaker placement; atrial fibrillation, on Xarelto; hypertension; and chronic obstructive pulmonary disease, who is admitted with near syncope and fall resulting in fibular fracture. Workup notable for significant iron deficiency anemia. Ms. West has not demonstrated any overt gastrointestinal blood loss. Stool occult was negative in the ER; however, she has an unexplained significant iron deficiency. Her presentation warrants endoscopic evaluation for potential gastrointestinal source of blood loss, particularly in the setting of aspirin and Xarelto usage. - Okay for diet tonight. Keep n.p.o. after midnight. - PPI b.i.d. - IV transfusion per primary team. The patient receiving 2 units of blood tonight. - Xarelto on hold. - The patient will need iron repletion. Consider oral supplementation versus iron repletion - We will plan for EGD tomorrow to assess for a potential upper gastrointestinal source of blood loss. If EGD is negative, then patient will likely require colonoscopy. This may be a bit challenging given the fact that she is quite elderly and frail with a fibular fracture. We will need to have discussion regarding the safest way for her to undergo the colonoscopy prep if it is felt to be indicated after the EGD is completed. Thank you very much for this consult. [id number]/[facility] #: [id number] BERENICE
[2018-05-02] MEDS: Gabapentin CAP(*) 300 MG PO SCH (22:04)
[2018-05-02] MEDS: Pantoprazole IV* 40 MG IV SCH (22:04)
[2018-05-02] MEDS: proPAFENone TAB* 150 MG PO SCH (22:04)
[2018-05-02 23:29] LABS: Hematocrit 21 % (35-47); Hemoglobin 6.6 g/dl (12.0-16.0)
[2018-05-03] MEDS: cefTRIAXone(*) 1 GM in NS 0.9% 50 ML* 50 ML IVPB SCH ×2 (02:23→23:23)
[2018-05-03 05:26] LABS: ABS Basophils 0 10^3/ul (0-0.2); ABS Eosinophils 0.1 10^3/ul (0-0.6); ABS Lymphocytes 1.2 10^3/ul (1.0-4.8); ABS Monocytes 1.1 10^3/ul (0-0.8); ABS Neutrophils 5.2 10^3/ul (1.5-7.7); ABS Nucleated RBC 0 10^3/ul; Eosinophil % 1.1 % (0-6); Hematocrit 26 % (35-47); Hemoglobin 8.3 g/dl (12.0-16.0); Lymphocyte % 15.4 % (25-47); Mean Corpuscular HGB Conc 32 g/dl (31-36); Mean Corpuscular Hemoglobin 27 pg (27-31); Mean Corpuscular Volume 83 fL (80-97); Mean Platelet Volume 7.6 um3 (7.4-10.4); Nucleated Red Blood Cells % 0.2; Platelet Count 212 10^3/ul (150-450); Red Blood Count 3.11 10^6/ul (4.00-5.40); Red Cell Distribution Width 19 % (10.5-15); White Blood Count 7.5 10^3/ul (3.5-10.8)
[2018-05-03 05:44] LABS: EGFR Non-African American 44.8 (>60)
[2018-05-03] MEDS: Levothyroxine TAB* 88 MCG TAB PO SCH (07:07)
[2018-05-03] MEDS: proPAFENone TAB* 150 MG PO SCH ×2 (08:35→20:03)
[2018-05-03] MEDS: Pantoprazole IV* 40 MG IV SCH ×2 (08:35→20:06)
[2018-05-03] MEDS: Acetaminophen TAB* 325 MG PO PRN (08:35)
[2018-05-03] MEDS: Aspirin EC TAB* 81 MG TAB.EC PO SCH (08:35)
[2018-05-03] MEDS ORDERED: Spiriva Inhaler DEVICE* 1 EACH DEVICE INH ONE (09:00)
[2018-05-03] MEDS: Tiotropium CAP.INH* CAP.INH/18 MCG (USE ORDER SET !) INH SCH (09:02)
[2018-05-03] MEDS ORDERED: traMADol TAB* 50 MG PO PRN (12:11)
[2018-05-03] MEDS ORDERED: fentaNYL* 50 MCG/ML 2 ML VIAL (100 MCG VIAL) ONE (14:30)
[2018-05-03] MEDS ORDERED: Midazolam* 1 MG/ML 10 ML VIAL (10 MG) ONE (14:30)
--- NOTE | 2018-05-03 17:39 | PN ---
Subjective Date of Service: 05/03/18 Interval History: Patient seen and examined. Son at bedside, GI at bedside to discuss EGD results. No bleeding found. Patient has no complaints but appears very sleepy post-procedure. Denies SOB, no chest pain, no n/v/d, no abdominal pain. Had pain in the LLE earlier in the day which is now resolved. Objective Active Medications: Acetaminophen (Tylenol Tab*) 650 mg PO Q4H PRN PRN Reason: FEVER/PAIN Last Admin: 05/03/18 08:35 Dose: 650 mg Al Hydrox/Mg Hydrox/Simethicone (Maalox Plus*) 30 ml PO Q6H PRN PRN Reason: INDIGESTION Aspirin (Aspirin Ec Tab*) 81 mg PO DAILY [facility] Last Admin: 05/03/18 08:35 Dose: 81 mg Atorvastatin Calcium (Lipitor*) 10 mg PO QPM [facility] Last Admin: 05/02/18 18:42 Dose: 10 mg Docusate Sodium (Colace Cap*) 100 mg PO BID PRN PRN Reason: CONSTIPATION Gabapentin (Neurontin Cap(*)) 1,500 mg PO BEDTIME [facility] Last Admin: 05/02/18 22:04 Dose: 1,500 mg Sodium Chloride (Ns 0.9% 1000 Ml*) 1,000 mls @ 125 mls/hr IV PER RATE [facility] Last Admin: 05/02/18 15:30 Dose: 125 mls/hr Ceftriaxone Sodium 1 gm/ (Sodium Chloride) 50 mls @ 200 mls/hr IVPB Q24H [facility] Last Admin: 05/03/18 02:23 Dose: 200 mls/hr Levothyroxine Sodium (Synthroid Tab*) 88 mcg PO 0600 [facility] Last Admin: 05/03/18 07:07 Dose: Not Given Ondansetron HCl (Zofran Inj*) 4 mg IV Q4H PRN PRN Reason: NAUSEA/VOMITING Pantoprazole Sodium (Protonix Iv*) 40 mg IV BID [facility] Last Admin: 05/03/18 08:35 Dose: 40 mg Propafenone HCl (Rythmol*) 150 mg PO BID [facility] Last Admin: 05/03/18 08:35 Dose: 150 mg Tiotropium [employer] (Spiriva Cap.Inh*) 1 cap INH 0900 [facility] Last Admin: 05/03/18 09:02 Dose: 1 cap Tramadol HCl (Ultram*) 50 mg PO Q6H PRN PRN Reason: leg pain Vital Signs - 8 hr 05/03/18 05/03/18 05/03/18 10:00 10:01 10:30 Temperature Pulse Rate 67 71 67 Respiratory 22 22 16 Rate Blood Pressure 128/68 122/66 (mmHg) O2 Sat by Pulse 98 100 100 Oximetry 05/03/18 05/03/18 05/03/18 11:00 11:01 11:30 Temperature Pulse Rate 66 66 68 Respiratory 16 20 19 Rate Blood Pressure 135/61 132/68 (mmHg) O2 Sat by Pulse 96 100 Oximetry 05/03/18 05/03/18 05/03/18 12:00 12:01 12:30 Temperature 98.1 F Pulse Rate 66 68 69 Respiratory 17 18 23 Rate Blood Pressure 119/64 135/76 (mmHg) O2 Sat by Pulse 76 100 Oximetry 05/03/18 05/03/18 05/03/18 13:00 13:01 13:31 Temperature Pulse Rate 70 69 70 Respiratory 20 22 20 Rate Blood Pressure 97/65 137/64 (mmHg) O2 Sat by Pulse 89 94 Oximetry 05/03/18 05/03/18 05/03/18 14:00 14:01 14:31 Temperature Pulse Rate 73 71 Respiratory 25 21 20 Rate Blood Pressure 123/61 151/69 (mmHg) O2 Sat by Pulse Oximetry 05/03/18 05/03/18 05/03/18 14:46 14:48 14:50 Temperature Pulse Rate 74 78 79 Respiratory Rate Blood Pressure 80/56 146/64 142/61 (mmHg) O2 Sat by Pulse 96 Oximetry 05/03/18 05/03/18 05/03/18 14:55 15:00 15:01 Temperature Pulse Rate 72 70 71 Respiratory 10 Rate Blood Pressure 135/63 106/74 (mmHg) O2 Sat by Pulse 93 100 100 Oximetry 05/03/18 05/03/18 05/03/18 15:05 15:10 15:15 Temperature Pulse Rate 70 68 67 Respiratory Rate Blood Pressure 124/53 116/55 119/51 (mmHg) O2 Sat by Pulse 100 99 98 Oximetry 05/03/18 05/03/18 05/03/18 15:20 15:26 15:30 Temperature Pulse Rate 70 69 74 Respiratory 17 Rate Blood Pressure 129/56 147/78 143/67 (mmHg) O2 Sat by Pulse 100 94 Oximetry 05/03/18 05/03/18 05/03/18 16:00 16:01 16:30 Temperature 98.2 F Pulse Rate 66 64 71 Respiratory 18 15 16 Rate Blood Pressure 134/79 140/71 (mmHg) O2 Sat by Pulse 97 Oximetry 05/03/18 05/03/18 17:00 17:01 Temperature Pulse Rate 75 76 Respiratory 16 23 Rate Blood Pressure 140/92 (mmHg) O2 Sat by Pulse 99 Oximetry Oxygen Devices in Use Now: Nasal Cannula Appearance: sleepy, NAD Eyes: No Scleral Icterus, PERRLA Ears/Nose/Mouth/Throat: Clear Oropharnyx, Mucous Membranes Moist Neck: NL Appearance and Movements; NL JVP, Trachea Midline Respiratory: Symmetrical Chest Expansion and Respiratory Effort, Clear to Auscultation Cardiovascular: NL Sounds; No Murmurs; No JVD, - - afib, irregular Extremities: No Edema, No Clubbing, Cyanosis, - - cast LLE, +2 pulse Neurological: Alert and Oriented x 3 - some short term memory impairment noted Nutrition: Taking PO's Result Diagrams: 05/03/18 05:17 05/03/18 05:17 Microbiology and Other Data: Microbiology 05/02/18 17:40 Urine Culture - Final Urine 05/02/18 16:45 Nasal Screen MRSA (PCR) - Final Nasal Mrsa Not Detected 05/02/18 12:46 Stool Occult Blood (FLAVIA) - Final Stool Assess/Plan/Problems-Billing Assessment: This is an 87 year old female with hx of afib and PM on xarelto that presented to ED s/p fall, found to be profoundly anemic. - Patient Problems (1) Anemia Code(s): D64.9 - ANEMIA, UNSPECIFIED SNOMED Code(s): 261625082 Comment: - s/p 2 units PRBCs for HgB 5.6, now >8 - s/p EGD today showing no active bleeding - Per GI, obtain colonoscopy records from 2011 and re-assess need for potential colonoscopy during this admission - Follow H&H (2) Controlled atrial fibrillation Code(s): I48.91 - UNSPECIFIED ATRIAL FIBRILLATION SNOMED Code(s): 822503355 Comment: - Rate controlled, no RVR - Continue propafenone and hold xarelto - Maintain tele (3) HTN (hypertension) Status: Acute Code(s): I10 - ESSENTIAL (PRIMARY) HYPERTENSION SNOMED Code(s) : 83952482 Comment: - BP stable (4) Ankle fracture Code(s): S82.899A - OTH FRACTURE OF UNSP LOWER LEG, INIT FOR CLOS FX SNOMED Code(s): 41920591 Comment: - Stable, casted, pain control PRN (5) Hypothyroidism Code(s): E03.9 - HYPOTHYROIDISM, UNSPECIFIED SNOMED Code(s): 98577935 Comment: - cotninue synthroid (6) CKD (chronic kidney disease) stage 3, GFR 30-59 ml/min Code(s): N18.3 - CHRONIC KIDNEY DISEASE, STAGE 3 (MODERATE) SNOMED Code(s): 202675914 Comment: - Renal function back to baseline (7) DVT prophylaxis Code(s): PUV1534 - SNOMED Code(s): 659591119 Comment: - SCD to RLE only, high risk for pharmacolgic prophylaxis (8) DNR (do not resuscitate) Status and Disposition: Inpatient, may consider downgrade tomorrow if H&H and HR remain stable.
[2018-05-03] MEDS: NS 0.9% 1000 ML* 1,000 ML IV SCH (18:49)
[2018-05-03] MEDS: Atorvastatin* 10 MG TAB PO SCH (18:49)
[2018-05-03] MEDS: Gabapentin CAP(*) 300 MG PO SCH (20:04)
--- NOTE | 2018-05-04 00:43 | CONS ---
CC: Dr. Alfred Hill * CONSULTATION REPORT: DATE OF CONSULT: 05/03/18 CHIEF COMPLAINT: Left ankle pain. HISTORY: Ms. West is an 87-year-old female who was brought in by ambulance to the emergency room with chief complaint of weakness and dizziness and status post fall at 8 o'clock on 05/02/18. The patient states she was in the bathroom , she sat up, and felt dizzy, she took a few steps and then fell. She had immediate pain of her left ankle. She used her Life Alert button to call for help. She did not hit her head. She states that she did not lose consciousness and she is not complaining of any injuries aside from her ankle. She does not have any feeling of chest pain, shortness of breath, or headache when she fell. PAST MEDICAL HISTORY: Thyroid disease, congestive heart failure, hypertension, COPD, arthritis. PAST SURGICAL HISTORY: Bilateral hip replacement, pacemaker stent, bilateral cataract surgery, appendectomy. ALLERGIES: Include AMIODARONE. FAMILY HISTORY: Positive for cardiac disease and diabetes. SOCIAL HISTORY: No alcohol use. No drug use. No smoking. Lives in an correction facility REVIEW OF SYSTEMS: General: Denies any fever or chills, is being treated for UTI. Head: No headache or head trauma. Cardiac: No chest pain or irregular beats. Respiratory: No difficulty breathing. Abdomen: No abdominal pain. No nausea or vomiting. Musculoskeletal: Positive for left ankle pain. Neuro: No paresthesias, tingling of extremities. PHYSICAL EXAM: General: She is in no acute distress. Head and Face: Normocephalic, atraumatic. Eyes: Extraocular movements intact. Chest is symmetric. Radial pulse 2+ bilaterally. Normal rate and effort of breathing. Abdomen: Soft, nontender. Skin: Bilateral upper extremities, skin envelope is intact, nontender to palpation of digits, wrists, elbows, shoulders, able to flex and extend at the digits. Wrists, elbows able to abduct and forward flex. Shoulders without any pain. No obvious deformities. Lower Extremities: Bilateral lower extremities, skin envelope intact. Able to flex and extend at the hip and at the knee. Right lower ankle and MTP with good flexion. No tenderness to palpation throughout the right lower extremity. Left lower extremity, there is a 1-step posterior slab on the left lower leg, which is quite bothersome to the patient, stating that it is digging into the back of her knee; this was removed. She does have some tenderness to palpation about the lateral ankle with some purple bruising. There is no skin breakdown, no open lesions, no open fracture, There is no gross deformity. She is able to flex and extend at the ankle as well as at the MTPs. Left knee and hip able to flex and extend without pain. Negative log roll bilateral hips. Neuro: Sensation is intact distally and throughout the left lower extremity. Cardiovascular: Capillary refill less than 2 seconds distally and DP pulse bilaterally 2+. DIAGNOSTIC STUDIES: Left ankle x-ray interpreted by Radiology, oblique, nondisplaced fracture of the distal fibula. ASSESSMENT: Left lateral malleolus fracture. PLAN: Posterior slab and stirrup splint placed, well padded. The patient tolerated well and reports comfort. She will be nonweightbearing on the left lower extremity. She will follow up with Dr. Hill in 1 week. SHALONDA SWEENEY [id number]/[facility] #: [id number] BERENICE
[2018-05-04] MEDS: NS 0.9% 1000 ML* 1,000 ML IV SCH ×2 (03:36→13:09)
[2018-05-04] MEDS: Levothyroxine TAB* 88 MCG TAB PO SCH (06:04)
[2018-05-04] MEDS: Tiotropium CAP.INH* CAP.INH/18 MCG (USE ORDER SET !) INH SCH (07:56)
--- NOTE | 2018-05-04 08:07 | RAD ---
HISTORY: fever, r/o PNA COMPARISONS: May 02, 2018 VIEWS: 1: frontal AP view of the chest at 1:40 AM FINDINGS: LINES AND TUBES: A left-sided dual-lead pacemaker is noted. CARDIOMEDIASTINAL SILHOUETTE: The cardiomediastinal silhouette is normal for portable technique. PLEURA: The costophrenic angles are sharp. No pleural abnormalities are noted. LUNG PARENCHYMA: The lungs are clear. ABDOMEN: The upper abdomen is clear. There is no subphrenic gas. BONES AND SOFT TISSUES: No bone or soft tissue abnormalities are noted. IMPRESSION: NO ACTIVE CARDIOPULMONARY DISEASE. R1NF
[2018-05-04] MEDS ORDERED: hydrOXYzine HCL TAB* 50 MG PO PRN (09:20)
[2018-05-04] MEDS: Aspirin EC TAB* 81 MG TAB.EC PO SCH (09:34)
[2018-05-04] MEDS: Pantoprazole IV* 40 MG IV SCH ×2 (09:34→20:44)
[2018-05-04 09:47] LABS: Hematocrit 33 % (35-47); Hemoglobin 10.6 g/dl (12.0-16.0); Mean Corpuscular HGB Conc 33 g/dl (31-36); Mean Corpuscular Hemoglobin 26 pg (27-31); Mean Corpuscular Volume 80 fL (80-97); Mean Platelet Volume 7.5 um3 (7.4-10.4); Platelet Count 265 10^3/ul (150-450); Red Blood Count 4.04 10^6/ul (4.00-5.40); Red Cell Distribution Width 19 % (10.5-15)
[2018-05-04 10:04] LABS: EGFR Non-African American 45.8 (>60)
[2018-05-04] MEDS: proPAFENone TAB* 150 MG PO SCH ×2 (10:54→20:43)
[2018-05-04] MEDS ORDERED: Magnesium Sulfate IV* 3 GM in NS 0.9% 100 ML* 100 ML IVPB ONE (17:18)
--- NOTE | 2018-05-04 17:28 | PN ---
Subjective Date of Service: 05/04/18 Interval History: Pt seen and examined. Meds and labs reviewed. CC: N/A ROS: Denied ANDERSEN/dizziness, F/C, N/V, CP, SOB, increased cough, sputum production , abd pain, diarrhea, constipation, dysuria, myalgias, arthralgias, throat pain , and new skin lesions. The rest of the 14 point ROS are unremarkable. PHYSICAL EXAM: GEN APPEARANCE: Awake, not in acute distress, not oriented to place, somewhat confused, with UE mittens in place HEENT: NC/AT, PERRLA, moist oral mucosa, (-) throat erythema NECK: Soft, supple, (-) cervical LAD, (-)JVD HEART: S1S2 WNL, RRR, No MRG CHEST: CTA, BL, GAE, No W/R/R ABD: Soft, ND/NT, NABS 4x Q EXT: No C/C/LLE cdi SKIN: Warm to touch PSYCH: No active psychosis, hallucinations, depression, SI/HI Objective Active Medications: Acetaminophen (Tylenol Tab*) 650 mg PO Q4H PRN PRN Reason: FEVER/PAIN Last Admin: 05/03/18 08:35 Dose: 650 mg Al Hydrox/Mg Hydrox/Simethicone (Maalox Plus*) 30 ml PO Q6H PRN PRN Reason: INDIGESTION Aspirin (Aspirin Ec Tab*) 81 mg PO DAILY [facility] Last Admin: 05/04/18 09:34 Dose: 81 mg Atorvastatin Calcium (Lipitor*) 10 mg PO QPM [facility] Last Admin: 05/03/18 18:49 Dose: 10 mg Docusate Sodium (Colace Cap*) 100 mg PO BID PRN PRN Reason: CONSTIPATION Gabapentin (Neurontin Cap(*)) 1,500 mg PO BEDTIME [facility] Last Admin: 05/03/18 20:04 Dose: 1,500 mg Hydroxyzine HCl (Atarax Tab*) 50 mg PO Q6H PRN PRN Reason: Anxiety/Agitation Sodium Chloride (Ns 0.9% 1000 Ml*) 1,000 mls @ 125 mls/hr IV PER RATE [facility] Last Admin: 05/04/18 13:09 Dose: 125 mls/hr Ceftriaxone Sodium 1 gm/ (Sodium Chloride) 50 mls @ 200 mls/hr IVPB Q24H [facility] Last Admin: 05/03/18 23:23 Dose: 200 mls/hr Magnesium Sulfate 3 gm/ Sodium (Chloride) 106 mls @ 53 mls/hr IVPB ONCE ONE Stop: 05/04/18 19:17 Sodium Phosphate 10 mmole/ (Sodium Chloride) 253.3333 mls @ 42 mls/hr IVPB ONCE ONE Stop: 05/04/18 23:15 Levothyroxine Sodium (Synthroid Tab*) 88 mcg PO 0600 [facility] Last Admin: 05/04/18 06:04 Dose: 88 mcg Ondansetron HCl (Zofran Inj*) 4 mg IV Q4H PRN PRN Reason: NAUSEA/VOMITING Pantoprazole Sodium (Protonix Iv*) 40 mg IV BID [facility] Last Admin: 05/04/18 09:34 Dose: 40 mg Propafenone HCl (Rythmol*) 150 mg PO BID [facility] Last Admin: 05/04/18 10:54 Dose: 150 mg Tiotropium [place] (Spiriva Cap.Inh*) 1 cap INH 0900 [facility] Last Admin: 05/04/18 07:56 Dose: 1 cap Tramadol HCl (Ultram*) 50 mg PO Q6H PRN PRN Reason: leg pain Last Admin: 05/04/18 00:09 Dose: 50 mg Vital Signs - 8 hr 05/04/18 05/04/18 11:17 15:11 Temperature 97.5 F 98.0 F Pulse Rate 84 80 Respiratory 14 16 Rate Blood Pressure 139/63 143/67 (mmHg) O2 Sat by Pulse 97 Oximetry Oxygen Devices in Use Now: None Result Diagrams: 05/04/18 09:42 05/04/18 09:42 Microbiology and Other Data: Microbiology 05/02/18 17:40 Urine Culture - Final Urine 05/02/18 16:45 Nasal Screen MRSA (PCR) - Final Nasal Mrsa Not Detected 05/02/18 12:46 Stool Occult Blood (FLAVIA) - Final Stool Assess/Plan/Problems-Billing Assessment: This is an 87 year old female with hx of afib and PM on xarelto that presented to ED s/p fall, found to be profoundly anemic. - Patient Problems (1) Anemia Current Visit: Yes Status: Acute Code(s): D64.9 - ANEMIA, UNSPECIFIED SNOMED Code(s): 311218060 Comment: - s/p 2 units PRBCs for HgB 5.6, now >8 - s/p EGD showing no active bleeding - Per GI, obtain colonoscopy records from 2012 and re-assess need for potential colonoscopy during this admission - H&H stable ---mild leukocytosis; will continue to monitor (2) Electrolyte abnormality Current Visit: Yes Status: Acute Code(s): E87.8 - OTH DISORDERS OF ELECTROLYTE AND FLUID BALANCE, NEC SNOMED Code(s): 591138395 Comment: -Corrected -Continue to follow Magnesium and phosphate levels (3) Controlled atrial fibrillation Current Visit: Yes Status: Acute Code(s): I48.91 - UNSPECIFIED ATRIAL FIBRILLATION SNOMED Code(s): 611714882 Comment: - Rate controlled, no RVR - Continue propafenone and hold xarelto - Maintain tele (4) HTN (hypertension) Current Visit: Yes Status: Acute Code(s): I10 - ESSENTIAL (PRIMARY) HYPERTENSION SNOMED Code(s): 80420222 Comment: - BP stable (5) Ankle fracture Current Visit: Yes Status: Acute Code(s): S82.899A - OTH FRACTURE OF UNSP LOWER LEG, INIT FOR CLOS FX SNOMED Code(s): 67417670 Comment: - Stable, casted, pain control PRN (6) Hypothyroidism Current Visit: No Status: Acute Code(s): E03.9 - HYPOTHYROIDISM, UNSPECIFIED SNOMED Code(s): 91230997 Comment: - cotninue synthroid (7) CKD (chronic kidney disease) stage 3, GFR 30-59 ml/min Current Visit: Yes Status: Acute Code(s): N18.3 - CHRONIC KIDNEY DISEASE, STAGE 3 (MODERATE) SNOMED Code(s): 681479361 Comment: - Renal function back to baseline (8) DVT prophylaxis Current Visit: No Status: Acute Code(s): DOJ5607 - SNOMED Code(s): 661466062 Comment: - SCD to RLE only, high risk for pharmacolgic prophylaxis Status and Disposition: -For PT eval -Will touch base with Care coordinators
[2018-05-04] MEDS: Atorvastatin* 10 MG TAB PO SCH (17:30)
[2018-05-04] MEDS: Gabapentin CAP(*) 300 MG PO SCH (20:43)
[2018-05-04] MEDS ORDERED: Sodium Phosphate INJ* 10 MMOLE in NS 0.9% 250 ML* 250 ML IVPB ONE (21:00)
[2018-05-04] MEDS: cefTRIAXone(*) 1 GM in NS 0.9% 50 ML* 50 ML IVPB SCH (23:57)
[2018-05-05 05:54] LABS: ABS Basophils 0.1 10^3/ul (0-0.2); ABS Eosinophils 0 10^3/ul (0-0.6); ABS Lymphocytes 0.5 10^3/ul (1.0-4.8); ABS Neutrophils 15.3 10^3/ul (1.5-7.7); ABS Nucleated RBC 0 10^3/ul; Eosinophil % 0 % (0-6); Hematocrit 33 % (35-47); Hemoglobin 10.6 g/dl (12.0-16.0); Lymphocyte % 2.9 % (25-47); Mean Corpuscular HGB Conc 32 g/dl (31-36); Mean Corpuscular Hemoglobin 26 pg (27-31); Mean Corpuscular Volume 82 fL (80-97); Mean Platelet Volume 8.1 fL (7.4-10.4); Nucleated Red Blood Cells % 0; Platelet Count 293 10^3/ul (150-450); Red Blood Count 4.06 10^6/ul (4.00-5.40); Red Cell Distribution Width 20 % (10.5-15); White Blood Count 16.9 10^3/ul (3.5-10.8)
[2018-05-05] MEDS: Levothyroxine TAB* 88 MCG TAB PO SCH (05:55)
[2018-05-05] MEDS: NS 0.9% 1000 ML* 1,000 ML IV SCH (05:55)
[2018-05-05 06:08] LABS: EGFR Non-African American 51.5 (>60)
[2018-05-05] MEDS ORDERED: Albuterol 2.5 MG/3 ML NEB.SOL* (0.083%) INH PRN (06:11)
[2018-05-05] MEDS ORDERED: Furosemide IV* 10 MG/ML 2 ML VIAL (20 MG) IV SLOW PU ONE (06:26)
--- NOTE | 2018-05-05 07:29 | PN ---
Progress Note - Progress Note Date of Service: 05/05/18 Note: Notified by overnight team that ABG was pending. Given lasix prior to my arrival Seen by this author in conjunction with RN Breathing appears comfortable and noted to be improved by RN Wheezing, no on oxygen Administer oxygen. Monitor Consider steroids for potential COPD exacerbation on reassessment if needed.
[2018-05-05] MEDS: Tiotropium CAP.INH* CAP.INH/18 MCG (USE ORDER SET !) INH SCH (07:54)
[2018-05-05] MEDS ORDERED: NS 0.9% 1000 ML* 1,000 ML IV SCH (09:15)
[2018-05-05] MEDS ORDERED: Piperacillin/Tazobac ADVAN(*) 3.375 GM in NS 0.9% 100 ML* 100 ML IVPB ONE (09:30)
[2018-05-05] MEDS ORDERED: Vancomycin(*) 1,000 MG in NS 0.9% 250 ML* 250 ML IVPB ONE (10:00)
[2018-05-05] MEDS ORDERED: Zosyn per Pharmacy* NOTE FOLLOW UP SCH (10:00)
--- NOTE | 2018-05-05 10:02 | PN ---
Progress Note - Progress Note Date of Service: 05/05/18 SOAP: Subjective: [Pt reports no significant pain L ankle. Denies CP, SOB, nausea.] Objective: [Alert but confused. In bed with hand mitts on. L ankle in splint - intact. Calf soft, NT. Sensation intact in toes. Vital Signs: Temp Pulse Resp BP Pulse Ox 98.6 F 88 20 145/67 100 05/05/18 07:42 05/05/18 07:55 05/05/18 07:55 05/05/18 07:42 05/05/18 07:55 Laboratory Results - last 24 hr 05/04/18 05/05/18 05/05/18 09:42 05:08 05:08 WBC 16.9 H RBC 4.06 Hgb 10.6 L Hct 33 L MCV 82 MCH 26 L MCHC 32 RDW 20 H Plt Count 293 MPV 8.1 Neut % (Auto) 90.7 H Lymph % (Auto) 2.9 L [place] % (Auto) 6.0 Eos % (Auto) 0 Baso % (Auto) 0.4 Absolute Neuts (auto) 15.3 H Absolute Lymphs (auto) 0.5 L Absolute Monos (auto) 1.0 H Absolute Eos (auto) 0 Absolute Basos (auto) 0.1 Absolute Nucleated RBC 0 Nucleated RBC % 0 ABG pH ABG pCO2 ABG pO2 ABG HCO3 ABG O2 Saturation ABG Base Excess Sodium 138 139 Potassium 4.1 3.6 Chloride 113 H 113 H Carbon Dioxide 17 L 13 L* Anion Gap 8 13 H BUN 22 25 H Creatinine 1.13 H 1.02 H Est GFR ( Amer) 55.4 62.3 Est GFR (Non-Af Amer) 45.8 51.5 BUN/Creatinine Ratio 19.5 24.5 H Glucose 81 77 Calcium 8.4 L 8.8 Phosphorus 2.4 L 2.9 Magnesium 1.7 L 2.4 Total Bilirubin 0.70 0.70 AST 27 38 ALT 13 18 Alkaline Phosphatase 69 76 Total Protein 5.6 L 6.0 L Albumin 3.0 L 3.1 L Globulin 2.6 2.9 Albumin/Globulin Ratio 1.2 1.1 05/05/18 06:40 WBC RBC Hgb Hct MCV MCH MCHC RDW Plt Count MPV Neut % (Auto) Lymph % (Auto) [place] % (Auto) Eos % (Auto) Baso % (Auto) Absolute Neuts (auto) Absolute Lymphs (auto) Absolute Monos (auto) Absolute Eos (auto) Absolute Basos (auto) Absolute Nucleated RBC Nucleated RBC % ABG pH 7.36 ABG pCO2 22 L ABG pO2 53 L* ABG HCO3 15.9 L ABG O2 Saturation 89.6 L ABG Base Excess -11.3 L Sodium Potassium Chloride Carbon Dioxide Anion Gap BUN Creatinine Est GFR ( Amer) Est GFR (Non-Af Amer) BUN/Creatinine Ratio Glucose Calcium Phosphorus Magnesium Total Bilirubin AST ALT Alkaline Phosphatase Total Protein Albumin Globulin Albumin/Globulin Ratio ] Assessment: [87 yo female s/p L lat mal fx] Plan: [NWB LLE Elevate LLE 2 pillows f/u with Dr. Hill 1 week]
[2018-05-05] MEDS: Aspirin EC TAB* 81 MG TAB.EC PO SCH (10:23)
[2018-05-05] MEDS: Pantoprazole IV* 40 MG IV SCH ×2 (10:25→15:40)
--- NOTE | 2018-05-05 11:19 | RAD ---
INDICATION: Shortness of breath. COMPARISON: Most recent comparison chest x-rays dated May 04, 2018 TECHNIQUE: Single AP portable view of the chest was obtained. FINDINGS: Image quality is compromised due to the relative inferiority of a portable chest x-ray. Stable postsurgical changes include a left upper chest cardiac pacemaker with 2 leads overlying the heart The heart and mediastinum exhibit normal size and contour. In the AP view the lungs appear hyperaerated similar to the previous chest x-ray. Otherwise the lungs are grossly clear. There is no evidence of a large pleural effusion. Visualized bones are normal for the patient's age. IMPRESSION: No radiographic evidence for acute cardiopulmonary abnormality on this portable chest x-ray.
[2018-05-05] MEDS: proPAFENone TAB* 150 MG PO SCH ×2 (11:58→21:55)
--- NOTE | 2018-05-05 12:30 | RAD ---
INDICATION: Confusion, slurring of speech and left-sided facial droop COMPARISON: CT of the brain May 02, 2018 TECHNIQUE: Contiguous axial sections of the brain were obtained from the skull base to the vertex without contrast. FINDINGS: The ventricles, cisterns and sulci symmetrical involutional changes. There is a mild degree of periventricular and subcortical white matter hypoattenuation similar in appearance to the previous CT of the brain, most consistent with chronic microvascular disease. The bourgeois-white matter differentiation is adequately maintained and there is no sulcal effacement. No significant focal abnormality or mass effect is present. There is coarse atherosclerotic calcification of the bilateral petrous carotid arteries and the left intracranial vertebral artery. There is no evidence for intracranial hemorrhage. No significant focal osseous abnormality is present. The visualized portion of the paranasal sinuses appear clear. The mastoid air cells are well aerated bilaterally. IMPRESSION: Chronic findings as described above not significantly changed since the most recent May 02, 2018 CT of the brain.
[2018-05-05] MEDS ORDERED: Iodixanol* (CONTRAST) 320 MG/ML 100 ML SDV IV ONE (13:16)
[2018-05-05] MEDS ORDERED: Vancomycin per Pharmacy* NOTE FOLLOW UP PRN (13:42)
[2018-05-05] MEDS ORDERED: Haloperidol INJ IV/IM* 5 MG/ML AMP IV SLOW PU STA (14:10)
[2018-05-05] MEDS ORDERED: LORazepam INJ* 2 MG/ML 1 ML VIAL IV PUSH STA (14:11)
--- NOTE | 2018-05-05 14:38 | PN ---
Subjective Date of Service: 05/05/18 Interval History: Pt seen and examined. Meds and labs reviewed. Pt noted by staff to be febrile , wheezing, with crackles and was given an extra dose of Lasix last night. AN ABG was sent w/c shows hypoxia with a mix acid base d/o. Later she was reported to have slurred speech and possible left facial droop. Please see discussion below. CC: N/A ROS: Unable to reliably obtain 14 point ROS due to worsening MS change since last night PHYSICAL EXAM: GEN APPEARANCE: Awake, not in acute distress, more confused, with UE mittens in place HEENT: NC/AT, PERRLA, moist oral mucosa, (-) throat erythema NECK: Soft, supple, (-) cervical LAD, (-)JVD HEART: S1S2 WNL, RRR, No MRG CHEST: (+)Bibasal crackles, (+)wheezing, GAE, No W/R/R ABD: Soft, ND/NT, NABS 4x Q EXT: No C/C/LLE cdi SKIN: Warm to touch PSYCH: Could not be reliably assessed NEURO: Blunting of left nasolabial foldunclear if new or significant, (+) Slurred speech Objective Active Medications: Acetaminophen (Tylenol Tab*) 650 mg PO Q4H PRN PRN Reason: FEVER/PAIN Last Admin: 05/03/18 08:35 Dose: 650 mg Acetylcysteine (Acetylcysteine Cap (Renal)*) 1,200 mg PO BID [facility] Stop: 05/06/18 21:01 Al Hydrox/Mg Hydrox/Simethicone (Maalox Plus*) 30 ml PO Q6H PRN PRN Reason: INDIGESTION Albuterol (Ventolin 2.5 Mg/3 Ml Neb.Diana*) 2.5 mg INH Q2H PRN PRN Reason: SOB/WHEEZING Aspirin (Aspirin Ec Tab*) 81 mg PO DAILY [facility] Last Admin: 05/05/18 10:23 Dose: 81 mg Atorvastatin Calcium (Lipitor*) 10 mg PO QPM [facility] Last Admin: 05/04/18 17:30 Dose: 10 mg Docusate Sodium (Colace Cap*) 100 mg PO BID PRN PRN Reason: CONSTIPATION Enoxaparin Sodium (Lovenox(*)) 30 mg SUBCUT Q24H [facility] Gabapentin (Neurontin Cap(*)) 1,500 mg PO BEDTIME [facility] Last Admin: 05/04/18 20:43 Dose: 1,500 mg Hydroxyzine HCl (Atarax Tab*) 50 mg PO Q6H PRN PRN Reason: Anxiety/Agitation Last Admin: 05/05/18 10:23 Dose: 50 mg Vancomycin HCl 1,000 mg/ (Sodium Chloride) 250 mls @ 166.667 mls/hr IVPB Q12H [facility]; Protocol Sodium Chloride (Ns 0.9% 1000 Ml*) 1,000 mls @ 75 mls/hr IV PER RATE [facility] Stop: 05/05/18 22:34 Piperacillin Sod/Tazobactam (Sod 3.375 gm/ Sodium Chloride) 100 mls @ 25 mls/ hr IVPB Q8H [facility] Levothyroxine Sodium (Synthroid Tab*) 88 mcg PO 0600 [facility] Last Admin: 05/05/18 05:55 Dose: 88 mcg Methylprednisolone Sodium Succinate (Solu-Medrol 40 Mg) 40 mg IV Q12H [facility] Ondansetron HCl (Zofran Inj*) 4 mg IV Q4H PRN PRN Reason: NAUSEA/VOMITING Pantoprazole Sodium (Protonix Iv*) 40 mg IV DAILY [facility] Pharmacy Consult (Zosyn Per Pharmacy*) 1 note FOLLOW UP .ZOSYN PER PHARMACY [facility] Pharmacy Consult (Vancomycin Per Pharmacy*) 1 note FOLLOW UP . PRN PRN Reason: PER PROTOCOL Pharmacy Profile Note (Vancomycin Trough Check) 1 note FOLLOW UP ONCE ONE Stop: 05/07/18 11:31 Propafenone HCl (Rythmol*) 150 mg PO BID [facility] Last Admin: 05/05/18 11:58 Dose: 150 mg Sodium Bicarbonate (Sodium Bicarbonate (Antacid)*) 1,300 mg PO TID [facility] Tiotropium [place] (Spiriva Cap.Inh*) 1 cap INH 0900 [facility] Last Admin: 05/05/18 07:54 Dose: 1 cap Tramadol HCl (Ultram*) 50 mg PO Q6H PRN PRN Reason: leg pain Last Admin: 05/04/18 00:09 Dose: 50 mg Vital Signs - 8 hr 05/05/18 05/05/18 05/05/18 07:42 07:55 08:00 Temperature 98.6 F Pulse Rate 84 88 Respiratory 24 20 24 Rate Blood Pressure 145/67 (mmHg) O2 Sat by Pulse 100 100 Oximetry Oxygen Devices in Use Now: Nasal Cannula Result Diagrams: 05/05/18 05:08 05/05/18 05:08 Microbiology and Other Data: Microbiology 05/02/18 17:40 Urine Culture - Final Urine 05/02/18 16:45 Nasal Screen MRSA (PCR) - Final Nasal Mrsa Not Detected 05/02/18 12:46 Stool Occult Blood (FLAVIA) - Final Stool Assess/Plan/Problems-Billing Assessment: This is an 87 year old female with hx of afib and PM on xarelto that presented to ED s/p fall, found to be profoundly anemic. - Patient Problems (1) Change in mental status Current Visit: Yes Status: Acute Code(s): R41.82 - ALTERED MENTAL STATUS, UNSPECIFIED SNOMED Code(s): 189736535 Comment: -CT non-contrast of head: NAD -Likely due to hypoxia -Per my wet read of CXR, it appears that she has BL lower lobe infiltrates and possible right middle lobe infiltrate but was read by radiologist as NAD -Given above reports of respiratory complaints along with concordant PE that seem to point to a pulmonary cause, will empirically treat for HCAP with Zosyn and Vancomycin as we await results of blood cultures -Possible that pt may have concomitant COPD exacerbation, however, ABG does not seem supportive of a ventilation problem, however, pt will be placed on low dose Solumedrol given possible HCAP -Given ABG reveals primarily that pt is hypoxic, another possibility is a PE given pt has fracture of LLE and not on pharmacologic prophylaxis---touched base with Giovani of orthopedic to further inquire why she was thought to be high risk for pharmacological prophylaxis by Ms. Montalvo. She mentioned that after reviewing her case, that there was no contraindication from their end in holding DVT pharmacologic prophylaxis, therefore, I have placed her on low dose Lovenox as we await result of CTA of Chest -CTA of chest to further evaluate possibility of PNA as well as PE, as discussed above (2) Mixed acid base balance disorder Current Visit: Yes Status: Acute Code(s): E87.4 - MIXED DISORDER OF ACID- BASE BALANCE SNOMED Code(s): 26196764 Comment: #NAGMA +Respiratory alkalosis: -pCO2 = 1.5(15.9) +8 +/-2 = 31.85 +/-2; Thus, expected pCO2 is lower than expected, likely due to observed tachypnea -Unclear cause of NAGMA, although AG this AM is slightly increased from baseline -Possibly due to diuresis?? -D/Cd any further diuretics at this time and placed on IVF x1L, slow rate -Lactic acid redrawn, increasing but still WNL -Will place on NaHCO3 tablets as ordered -Respiratory alkalosis likely due to tachypnea consistent with documentation of staff overnight that seems to point to an acute pulmonary eventespecially given fevers -Will await CTA of chest (3) Anemia Current Visit: Yes Status: Acute Code(s): D64.9 - ANEMIA, UNSPECIFIED SNOMED Code(s): 644912235 Comment: - s/p 2 units PRBCs for HgB 5.6, now >8 - s/p EGD showing no active bleeding - Per GI, obtain colonoscopy records from 2012 and re-assess need for potential colonoscopy during this admission - H&H stable ---mild leukocytosis; will continue to monitor (4) Electrolyte abnormality Current Visit: Yes Status: Acute Code(s): E87.8 - OTH DISORDERS OF ELECTROLYTE AND FLUID BALANCE, NEC SNOMED Code(s): 414665402 Comment: -Corrected -Continue to follow Magnesium and phosphate levels (5) Controlled atrial fibrillation Current Visit: Yes Status: Acute Code(s): I48.91 - UNSPECIFIED ATRIAL FIBRILLATION SNOMED Code(s): 112943377 Comment: - Rate controlled, no RVR - Continue propafenone and hold xarelto - Maintain tele (6) HTN (hypertension) Current Visit: Yes Status: Acute Code(s): I10 - ESSENTIAL (PRIMARY) HYPERTENSION SNOMED Code(s): 21139023 Comment: - BP stable (7) Ankle fracture Current Visit: Yes Status: Acute Code(s): S82.899A - OTH FRACTURE OF UNSP LOWER LEG, INIT FOR CLOS FX SNOMED Code(s): 81701958 Comment: - Stable, casted, pain control PRN (8) Hypothyroidism Current Visit: No Status: Acute Code(s): E03.9 - HYPOTHYROIDISM, UNSPECIFIED SNOMED Code(s): 95719651 Comment: - cotninue synthroid (9) CKD (chronic kidney disease) stage 3, GFR 30-59 ml/min Current Visit: Yes Status: Acute Code(s): N18.3 - CHRONIC KIDNEY DISEASE, STAGE 3 (MODERATE) SNOMED Code(s): 132331285 Comment: - Renal function back to baseline (10) DVT prophylaxis Current Visit: No Status: Acute Code(s): RTJ5897 - SNOMED Code(s): 295394886 Comment: -Please see above discussion -Will place pt on Lovenox SQ, low dose given advanced age -D/W Orthopedics Status and Disposition: -For PT eval -As above
[2018-05-05] MEDS ORDERED: Enoxaparin(*) 30 MG/0.3 ML SYR SUBCUT SCH (15:00)
--- NOTE | 2018-05-05 15:27 | RAD ---
INDICATION: Tachypnea and leukocytosis COMPARISON: None TECHNIQUE: Axial source images were acquired following the administration of 66 mL of Visipaque [address] angiographic technique. Coronal and sagittal reconstructed images were constructed and reviewed. FINDINGS: There is a left upper chest cardiac pacemaker with 2 leads terminating in the heart. There there are no filling defects in the pulmonary arteries to indicate acute pulmonary embolic disease. There is diffuse centrilobular emphysematous changes as well as increased parenchymal attenuation in the dependent portions of the bilateral upper lobes. More inferiorly there is compressive atelectasis of the lower lobes adjacent to bilateral small pleural effusions. There is a mild degree of cardiomegaly. There is a small pericardial effusion. There is calcified atherosclerosis at the arch of the aorta and the coronary arteries. Contrast injected into the left upper extremity is seen filling collateral superficial veins before filling the SVC due to occlusion of the left brachiocephalic vein. There is no mediastinal, hilar, or axillary lymphadenopathy. Degenerative changes of the thoracic spine includes loss of intervertebral disc height. Limited views of the upper abdomen show no abnormalities. IMPRESSION: 1. No CT of evidence of pulmonary embolism. 2. There is mild cardiomegaly, a small pericardial effusion and small to moderate bilateral pleural effusions that could be consistent with congestive heart failure. 3. Increased parenchymal attenuation of the upper lobes could be due to pulmonary edema or early interstitial lung disease. 4. Incidentally noted is occlusion of the left brachiocephalic vein with filling of venous collaterals from the left upper extremity contrast injection site.
[2018-05-05] MEDS: methylPREDNISolone SOD 40 MG* 1 ML VIAL IV SCH (15:41)
[2018-05-05] MEDS: ZOSYN 3.375 GM Q8H per EXTENDED INFUSION IVPB SCH ×4 (15:45→22:10)
[2018-05-05] MEDS: Sodium Bicarbonate (ANTACID)* 650 MG TAB PO SCH ×2 (15:48→21:55)
[2018-05-05] MEDS: Acetylcysteine CAP (RENAL)* 600 MG PO SCH ×2 (17:05→21:55)
[2018-05-05] MEDS: Atorvastatin* 10 MG TAB PO SCH (17:05)
[2018-05-05] MEDS: Gabapentin CAP(*) 300 MG PO SCH (21:55)
--- NOTE | 2018-05-05 23:32 | PRO ---
CC: Haylee Milan MD; Dr. Perez * DATE OF PROCEDURE: 05/03/18 - ROOM #[id number] PROCEDURE PERFORMED: Esophagogastroduodenoscopy with biopsies. INDICATION FOR PROCEDURE: Anemia, on anticoagulation. MEDICATIONS GIVEN: Include 3 mg IV midazolam, 25 mcg IV fentanyl. INFORMED CONSENT: Informed consent was obtained from the son, Je Houston, who is the patient's healthcare proxy. The patient is actually alert and oriented, but there is some mild short-term memory confusion, so consent was obtained from both the son and the patient herself with additional nursing confirmation. DESCRIPTION OF PROCEDURE: After the EGD procedure, including the risks, benefits, and alternatives with the risks not limited to perforation, surgery, missed lesions and/or were explained to the patient, written consent was then obtained. IV medication was given and a bite-block was placed between the teeth. The adult Olympus gastroscope was then passed through the patient's mouth into the upper esophageal sphincter into the tubular esophagus. 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 In the distal esophagus, there was C0M1 possible Teixeira' s mucosa. This was biopsied. There was some mild inflammation around this area as well and a 3 cm hiatal hernia. No active bleeding was noted and no distinct ulceration. The scope was then advanced through the lower esophageal sphincter into the stomach. There was some mild antral gastritis. This was biopsied for CLOtesting. On retroflexion, the above-mentioned hiatal hernia was visualized. The scope was then advanced through the pylorus into the duodenum into the duodenal bulb, C-loop and distal duodenum. This was normal, however, given her anemia, this was biopsied to rule out villous architecture abnormalities. The GE junction was at 40 cm. The scope was then withdrawn from the patient. She tolerated the procedure well. She returned to the recovery room in stable condition. IMPRESSION: 1. Complete esophagogastroduodenoscopy with biopsies. 2. Possible Teixeira's mucosa, biopsied, with scant inflammation and possible erosion. 3. Gastritis, biopsied for CLOtesting. 4. Normal duodenum, but biopsied to rule out villous architecture abnormality as cause of anemia. RECOMMENDATIONS: After discussion with the son about consideration for colonoscopy, she had a recent fracture, it would make it difficult for her to prep and we discussed the possibility if we did find something on colonoscopy that he would probably advise against surgical intervention and putting her through an invasive procedure like that. The patient is a DNR at this time. If her hemoglobin remains stable, we will do observation. If her hemoglobin continues to drop or does not improve, we would consider colonoscopy at that time. The son is in agreement with this plan and the patient. [id number]/[facility] #: [id number] BERENICE
[2018-05-06] MEDS: Vancomycin(*) 1,000 MG in NS 0.9% 250 ML* 250 ML IVPB SCH ×2 (01:36→12:26)
[2018-05-06] MEDS: methylPREDNISolone SOD 40 MG* 1 ML VIAL IV SCH ×2 (03:21→15:10)
[2018-05-06] MEDS: Levothyroxine TAB* 88 MCG TAB PO SCH (05:05)
[2018-05-06] MEDS: ZOSYN 3.375 GM Q8H per EXTENDED INFUSION IVPB SCH ×6 (06:06→21:46)
[2018-05-06 06:15] LABS: ABS Basophils 0 10^3/ul (0-0.2); ABS Eosinophils 0 10^3/ul (0-0.6); ABS Lymphocytes 0.5 10^3/ul (1.0-4.8); ABS Monocytes 0.4 10^3/ul (0-0.8); ABS Neutrophils 12.5 10^3/ul (1.5-7.7); ABS Nucleated RBC 0 10^3/ul; Eosinophil % 0 % (0-6); Hematocrit 33 % (35-47); Hemoglobin 10.5 g/dl (12.0-16.0); Lymphocyte % 3.7 % (25-47); Mean Corpuscular HGB Conc 32 g/dl (31-36); Mean Corpuscular Hemoglobin 26 pg (27-31); Mean Corpuscular Volume 81 fL (80-97); Nucleated Red Blood Cells % 0; Platelet Count 314 10^3/ul (150-450); Red Cell Distribution Width 20 % (10.5-15); White Blood Count 13.4 10^3/ul (3.5-10.8)
[2018-05-06 06:33] LABS: EGFR Non-African American 42.3 (>60)
[2018-05-06] MEDS: Tiotropium CAP.INH* CAP.INH/18 MCG (USE ORDER SET !) INH SCH (07:46)
[2018-05-06] MEDS: Enoxaparin(*) 30 MG/0.3 ML SYR SUBCUT SCH (11:19)
[2018-05-06] MEDS: Pantoprazole IV* 40 MG IV SCH (11:19)
[2018-05-06] MEDS: proPAFENone TAB* 150 MG PO SCH ×2 (12:19→21:34)
[2018-05-06] MEDS: Acetaminophen TAB* 325 MG PO PRN (12:19)
[2018-05-06] MEDS: Acetylcysteine CAP (RENAL)* 600 MG PO SCH ×2 (12:19→21:34)
[2018-05-06] MEDS: Aspirin EC TAB* 81 MG TAB.EC PO SCH (12:20)
[2018-05-06] MEDS: Sodium Bicarbonate (ANTACID)* 650 MG TAB PO SCH ×3 (12:20→21:34)
[2018-05-06] MEDS: Docusate CAP* 100 MG PO PRN (12:20)
--- NOTE | 2018-05-06 15:31 | PN ---
Subjective Date of Service: 05/06/18 Interval History: Pt seen and examined. Meds and labs reviewed. Pt started on Zosyn and Vancomycin yesterday due to HCAP (infiltrates, interstitial edema, fever, confusion, and tachypnea) and Rocephin D/Cd for treatment of UTI diagnosed in outpt yesterday. Pt appears more comfortable today and no longer delirious and easier to re-direct when compared to yesterday. CC: N/A ROS: Denied ANDERSEN/dizziness, F/C, N/V, CP, SOB, increased cough, sputum production , abd pain, diarrhea, constipation, dysuria, myalgias, arthralgias, throat pain , and new skin lesions. The rest of the 14 point ROS are unremarkable. PHYSICAL EXAM: GEN APPEARANCE: Awake, not in acute distress, oriented to place only HEENT: NC/AT, PERRLA, moist oral mucosa, (-) throat erythema NECK: Soft, supple, (-) cervical LAD, (-)JVD HEART: S1S2 WNL, RRR, No MRG CHEST: Bibasal inspiratory crackles, GAE, No W/R/R ABD: Soft, ND/NT, NABS 4x Q EXT: No C/C/E SKIN: Warm to touch PSYCH: No active psychosis, hallucinations, depression, SI/HI Objective Active Medications: Acetaminophen (Tylenol Tab*) 650 mg PO Q4H PRN PRN Reason: FEVER/PAIN Last Admin: 05/06/18 12:19 Dose: 650 mg Acetylcysteine (Acetylcysteine Cap (Renal)*) 1,200 mg PO BID [facility] Stop: 05/06/18 21:01 Last Admin: 05/06/18 12:19 Dose: 1,200 mg Al Hydrox/Mg Hydrox/Simethicone (Maalox Plus*) 30 ml PO Q6H PRN PRN Reason: INDIGESTION Albuterol (Ventolin 2.5 Mg/3 Ml Neb.Diana*) 2.5 mg INH Q2H PRN PRN Reason: SOB/WHEEZING Aspirin (Aspirin Ec Tab*) 81 mg PO DAILY [facility] Last Admin: 05/06/18 12:20 Dose: 81 mg Atorvastatin Calcium (Lipitor*) 10 mg PO QPM [facility] Last Admin: 05/05/18 17:05 Dose: Not Given Docusate Sodium (Colace Cap*) 100 mg PO BID PRN PRN Reason: CONSTIPATION Last Admin: 05/06/18 12:20 Dose: 100 mg Enoxaparin Sodium (Lovenox(*)) 30 mg SUBCUT Q24H [facility] Last Admin: 05/06/18 11:19 Dose: 30 mg Gabapentin (Neurontin Cap(*)) 1,500 mg PO BEDTIME [facility] Last Admin: 05/05/18 21:55 Dose: Not Given Hydroxyzine HCl (Atarax Tab*) 50 mg PO Q6H PRN PRN Reason: Anxiety/Agitation Last Admin: 05/05/18 10:23 Dose: 50 mg Vancomycin HCl 1,000 mg/ (Sodium Chloride) 250 mls @ 166.667 mls/hr IVPB Q12H [facility]; Protocol Last Admin: 05/06/18 12:26 Dose: 166.667 mls/hr Piperacillin Sod/Tazobactam (Sod 3.375 gm/ Sodium Chloride) 100 mls @ 25 mls/ hr IVPB Q8H [facility] Last Admin: 05/06/18 06:06 Dose: 25 mls/hr Levothyroxine Sodium (Synthroid Tab*) 88 mcg PO 0600 [facility] Last Admin: 05/06/18 05:05 Dose: Not Given Methylprednisolone Sodium Succinate (Solu-Medrol 40 Mg) 40 mg IV Q12H [facility] Last Admin: 05/06/18 15:10 Dose: 40 mg Omeprazole (Prilosec Cap*) 20 mg PO DAILY [facility] Ondansetron HCl (Zofran Inj*) 4 mg IV Q4H PRN PRN Reason: NAUSEA/VOMITING Pharmacy Consult (Zosyn Per Pharmacy*) 1 note FOLLOW UP .ZOSYN PER PHARMACY [facility] Pharmacy Consult (Vancomycin Per Pharmacy*) 1 note FOLLOW UP . PRN PRN Reason: PER PROTOCOL Pharmacy Profile Note (Vancomycin Trough Check) 1 note FOLLOW UP ONCE ONE Stop: 05/07/18 11:31 Propafenone HCl (Rythmol*) 150 mg PO BID [facility] Last Admin: 05/06/18 12:19 Dose: 150 mg Sodium Bicarbonate (Sodium Bicarbonate (Antacid)*) 1,300 mg PO TID [facility] Last Admin: 05/06/18 15:10 Dose: 1,300 mg Tiotropium [place] (Spiriva Cap.Inh*) 1 cap INH 0900 [facility] Last Admin: 05/06/18 07:46 Dose: 1 cap Tramadol HCl (Ultram*) 50 mg PO Q6H PRN PRN Reason: leg pain Last Admin: 05/04/18 00:09 Dose: 50 mg Vital Signs - 8 hr 05/06/18 07:46 Pulse Rate 74 Respiratory 18 Rate O2 Sat by Pulse 98 Oximetry Oxygen Devices in Use Now: Nasal Cannula Result Diagrams: 05/06/18 05:47 05/06/18 05:47 Microbiology and Other Data: Microbiology 05/02/18 17:40 Urine Culture - Final Urine 05/02/18 16:45 Nasal Screen MRSA (PCR) - Final Nasal Mrsa Not Detected 05/02/18 12:46 Stool Occult Blood (FLAVIA) - Final Stool Assess/Plan/Problems-Billing Assessment: This is an 87 year old female with hx of afib and PM on xarelto that presented to ED s/p fall, found to be profoundly anemic. - Patient Problems (1) HCAP (healthcare-associated pneumonia) Current Visit: Yes Status: Acute Code(s): J18.9 - PNEUMONIA, UNSPECIFIED ORGANISM SNOMED Code(s): 449871329 Comment: -Continue Zosyn and Vancomycin -Continue Solumedrol---start to rapidly taper tomorrow especially if lung sounds continue to improve -Of note, pt diagnosed with HCAP while pt on Rocephin for UTI diagnosed previously -If cultures continue to be negative by tomorrow consider narrowing to Clindamycin -Continue PRN nebs (2) Mixed acid base balance disorder Current Visit: Yes Status: Acute Code(s): E87.4 - MIXED DISORDER OF ACID- BASE BALANCE SNOMED Code(s): 28848168 Comment: -As mentioned acute respiratory alkalosis likely due to HCAP due to tachypnea -NAGMA likely due to acute on chronic renal failure, however, AG is increasing and thus would recheck ABG in AM to recheck acid-base status -Continue PO Sodium bicarbonate -Awaiting urine lytes and renal U/S to better characterized acute RI (3) Acute on chronic renal insufficiency Current Visit: Yes Status: Acute Code(s): N28.9 - DISORDER OF KIDNEY AND URETER, UNSPECIFIED; N18.9 - CHRONIC KIDNEY DISEASE, UNSPECIFIED SNOMED Code(s ): 971229083 Comment: -Suspect pre-renal cause likely due to diuresis due to presumed congestion; further diuresis stopped with diagnosis of HCAP and subsequent clinical improvement -Will await urine lytes and renal U/S and if overall data suggestive of pre- renal cause, will restart pt on IVF (4) Anemia Current Visit: Yes Status: Acute Code(s): D64.9 - ANEMIA, UNSPECIFIED SNOMED Code(s): 731442900 Comment: -Likely due to chronic GIB -EGD 05/03 reveals: 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 Maria and still waiting on colonoscopy data from another facility--- mentions that if no significant lesion found there, then anticoagulation can be reconsidered in a few weeks once the above UGI lesions has had some time to heal (5) Controlled atrial fibrillation Current Visit: Yes Status: Acute Code(s): I48.91 - UNSPECIFIED ATRIAL FIBRILLATION SNOMED Code(s): 314769424 Comment: -Rate controlled, no RVR -Continue propafenone and hold xarelto and give a few weeks for mucosa to heal unless significant findings on previous colonoscopy done in another facility -Maintain tele -Please see above discussion (6) HTN (hypertension) Current Visit: Yes Status: Acute Code(s): I10 - ESSENTIAL (PRIMARY) HYPERTENSION SNOMED Code(s): 34240472 Comment: - BP stable (7) Ankle fracture Current Visit: Yes Status: Acute Code(s): S82.899A - OTH FRACTURE OF UNSP LOWER LEG, INIT FOR CLOS FX SNOMED Code(s): 35295771 Comment: - Stable, casted, pain control PRN (8) Hypothyroidism Current Visit: No Status: Acute Code(s): E03.9 - HYPOTHYROIDISM, UNSPECIFIED SNOMED Code(s): 96102258 Comment: - cotninue synthroid (9) CKD (chronic kidney disease) stage 3, GFR 30-59 ml/min Current Visit: Yes Status: Acute Code(s): N18.3 - CHRONIC KIDNEY DISEASE, STAGE 3 (MODERATE) SNOMED Code(s): 401031163 Comment: - Renal function back to baseline (10) DVT prophylaxis Current Visit: No Status: Acute Code(s): YMT9062 - SNOMED Code(s): 993178390 Comment: -Please see above discussion -Will place pt on Lovenox SQ, low dose given advanced age -D/W Orthopedics Status and Disposition: -For PT eval -For possible rehab placement
--- NOTE | 2018-05-06 18:03 | RAD ---
INDICATION: Acute renal failure COMPARISON: None TECHNIQUE: Real-time ultrasound examination of the bilateral kidneys including grayscale and Doppler color flow analysis. FINDINGS: Bilaterally the kidneys are normal in size and echogenicity. There are no hypervascular renal masses. There are no renal calculi or hydronephrosis identified. IMPRESSION: Normal ultrasound of the kidneys.
[2018-05-06] MEDS: Atorvastatin* 10 MG TAB PO SCH (20:06)
[2018-05-06] MEDS: Gabapentin CAP(*) 300 MG PO SCH (21:33)
[2018-05-07] MEDS: Vancomycin(*) 1,000 MG in NS 0.9% 250 ML* 250 ML IVPB SCH ×2 (01:00→12:43)
[2018-05-07] MEDS: methylPREDNISolone SOD 40 MG* 1 ML VIAL IV SCH ×2 (02:34→14:27)
[2018-05-07] MEDS: ZOSYN 3.375 GM Q8H per EXTENDED INFUSION IVPB SCH ×4 (05:38→14:28)
[2018-05-07] MEDS: Levothyroxine TAB* 88 MCG TAB PO SCH (05:38)
[2018-05-07 06:06] LABS: ABS Basophils 0 10^3/ul (0-0.2); ABS Eosinophils 0 10^3/ul (0-0.6); ABS Lymphocytes 0.4 10^3/ul (1.0-4.8); ABS Monocytes 0.5 10^3/ul (0-0.8); ABS Neutrophils 13.1 10^3/ul (1.5-7.7); ABS Nucleated RBC 0 10^3/ul; Eosinophil % 0 % (0-6); Hematocrit 30 % (35-47); Hemoglobin 9.7 g/dl (12.0-16.0); Lymphocyte % 3.1 % (25-47); Mean Corpuscular HGB Conc 33 g/dl (31-36); Mean Corpuscular Hemoglobin 26 pg (27-31); Mean Corpuscular Volume 80 fL (80-97); Nucleated Red Blood Cells % 0.1; Platelet Count 308 10^3/ul (150-450); Red Blood Count 3.69 10^6/ul (4.00-5.40); Red Cell Distribution Width 20 % (10.5-15)
[2018-05-07 06:39] LABS: EGFR Non-African American 46.2 (>60)
[2018-05-07] MEDS: Tiotropium CAP.INH* CAP.INH/18 MCG (USE ORDER SET !) INH SCH (07:41)
[2018-05-07] MEDS: Aspirin EC TAB* 81 MG TAB.EC PO SCH (08:22)
[2018-05-07] MEDS: proPAFENone TAB* 150 MG PO SCH ×2 (08:22→20:58)
[2018-05-07] MEDS: Omeprazole CAP* 20 MG PO SCH (08:22)
[2018-05-07] MEDS: Sodium Bicarbonate (ANTACID)* 650 MG TAB PO SCH ×3 (08:22→20:58)
[2018-05-07] MEDS ORDERED: Potassium Chlor TAB* 20 MEQ TAB.ER PO STA (09:33)
[2018-05-07] MEDS: Enoxaparin(*) 30 MG/0.3 ML SYR SUBCUT SCH (10:09)
[2018-05-07] MEDS ORDERED: NS 0.9% 1000 ML* 1,000 ML IV SCH (11:30)
[2018-05-07] MEDS ORDERED: Vancomycin Trough Check NOTE FOLLOW UP ONE (11:30)
[2018-05-07] MEDS: Docusate CAP* 100 MG PO PRN (14:56)
[2018-05-07] MEDS: NS 0.9% 1000 ML* 1,000 ML IV SCH (15:09)
--- NOTE | 2018-05-07 15:47 | PN ---
Subjective Date of Service: 05/07/18 Interval History: Pt seen and examined. Meds and labs reviewed. CC: N/A ROS: Denied ANDERSEN/dizziness, F/C, N/V, CP, SOB, increased cough, sputum production , abd pain, diarrhea, constipation, dysuria, myalgias, arthralgias, throat pain , and new skin lesions. The rest of the 14 point ROS are unremarkable. PHYSICAL EXAM: GEN APPEARANCE: Awake, not in acute distress, not Ox3 HEENT: NC/AT, PERRLA, moist oral mucosa, (-) throat erythema NECK: Soft, supple, (-) cervical LAD, (-)JVD HEART: S1S2 WNL, RRR, No MRG CHEST: CTA, BL, GAE, No W/R/R ABD: Soft, ND/NT, NABS 4x Q EXT: No C/C/LLE cdi SKIN: Warm to touch PSYCH: No active psychosis, hallucinations, depression, SI/HI Objective Active Medications: Acetaminophen (Tylenol Tab*) 650 mg PO Q4H PRN PRN Reason: FEVER/PAIN Last Admin: 05/06/18 12:19 Dose: 650 mg Al Hydrox/Mg Hydrox/Simethicone (Maalox Plus*) 30 ml PO Q6H PRN PRN Reason: INDIGESTION Albuterol (Ventolin 2.5 Mg/3 Ml Neb.Diana*) 2.5 mg INH Q2H PRN PRN Reason: SOB/WHEEZING Aspirin (Aspirin Ec Tab*) 81 mg PO DAILY [facility] Last Admin: 05/07/18 08:22 Dose: 81 mg Atorvastatin Calcium (Lipitor*) 10 mg PO QPM [facility] Last Admin: 05/06/18 20:06 Dose: 10 mg Docusate Sodium (Colace Cap*) 100 mg PO BID PRN PRN Reason: CONSTIPATION Last Admin: 05/07/18 14:56 Dose: 100 mg Enoxaparin Sodium (Lovenox(*)) 30 mg SUBCUT Q24H [facility] Last Admin: 05/07/18 10:09 Dose: 30 mg Gabapentin (Neurontin Cap(*)) 1,500 mg PO BEDTIME [facility] Last Admin: 05/06/18 21:33 Dose: 1,500 mg Hydroxyzine HCl (Atarax Tab*) 50 mg PO Q6H PRN PRN Reason: Anxiety/Agitation Last Admin: 05/05/18 10:23 Dose: 50 mg Piperacillin Sod/Tazobactam (Sod 3.375 gm/ Sodium Chloride) 100 mls @ 25 mls/ hr IVPB Q8H [facility] Last Admin: 05/07/18 14:28 Dose: 25 mls/hr Sodium Chloride (Ns 0.9% 1000 Ml*) 1,000 mls @ 100 mls/hr IV PER RATE [facility] Stop: 05/09/18 01:03 Last Admin: 05/07/18 15:09 Dose: 100 mls/hr Clindamycin HCl/Dextrose (Cleocin 300 Mg Ivpemix(*)) 300 mg in 50 mls @ 200 mls /hr IV TID [facility] Levothyroxine Sodium (Synthroid Tab*) 88 mcg PO 0600 [facility] Last Admin: 05/07/18 05:38 Dose: 88 mcg Methylprednisolone Sodium Succinate (Solu-Medrol 40 Mg) 40 mg IV Q12H [facility] Last Admin: 05/07/18 14:27 Dose: 40 mg Omeprazole (Prilosec Cap*) 20 mg PO DAILY [facility] Last Admin: 05/07/18 08:22 Dose: 20 mg Ondansetron HCl (Zofran Inj*) 4 mg IV Q4H PRN PRN Reason: NAUSEA/VOMITING Propafenone HCl (Rythmol*) 150 mg PO BID [facility] Last Admin: 05/07/18 08:22 Dose: 150 mg Sodium Bicarbonate (Sodium Bicarbonate (Antacid)*) 1,300 mg PO TID [facility] Last Admin: 05/07/18 14:27 Dose: 1,300 mg Tiotropium [place] (Spiriva Cap.Inh*) 1 cap INH 0900 [facility] Last Admin: 05/07/18 07:41 Dose: 1 cap Tramadol HCl (Ultram*) 50 mg PO Q6H PRN PRN Reason: leg pain Last Admin: 05/04/18 00:09 Dose: 50 mg Vital Signs - 8 hr 05/07/18 05/07/18 05/07/18 07:57 09:17 11:14 Temperature 98.4 F 98.6 F Pulse Rate 80 76 Respiratory 18 18 18 Rate Blood Pressure 138/64 132/66 (mmHg) O2 Sat by Pulse 98 97 Oximetry 05/07/18 15:08 Temperature 98.0 F Pulse Rate 82 Respiratory 17 Rate Blood Pressure 134/67 (mmHg) O2 Sat by Pulse 95 Oximetry Oxygen Devices in Use Now: Nasal Cannula Result Diagrams: 05/07/18 05:34 05/07/18 07:34 Microbiology and Other Data: Microbiology 05/02/18 17:40 Urine Culture - Final Urine 05/02/18 16:45 Nasal Screen MRSA (PCR) - Final Nasal Mrsa Not Detected 05/02/18 12:46 Stool Occult Blood (FLAVIA) - Final Stool Assess/Plan/Problems-Billing Assessment: This is an 87 year old female with hx of afib and PM on xarelto that presented to ED s/p fall, found to be profoundly anemic. - Patient Problems (1) HCAP (healthcare-associated pneumonia) Current Visit: Yes Status: Acute Code(s): J18.9 - PNEUMONIA, UNSPECIFIED ORGANISM SNOMED Code(s): 689211698 Comment: -Likely cause of Mental status change as previously documented -Improved -Blood cultures (-)x3 -D/C Zosyn and Vancomycin -Will narrow Abx to Clindamycin, D#3 -Of note, pt diagnosed with HCAP while pt on Rocephin for UTI diagnosed previously -Continue PRN nebs (2) Mixed acid base balance disorder Current Visit: Yes Status: Acute Code(s): E87.4 - MIXED DISORDER OF ACID- BASE BALANCE SNOMED Code(s): 34290955 Comment: -Continues to improve -As mentioned acute respiratory alkalosis likely due to HCAP due to tachypnea -NAGMA likely due to acute on chronic renal failure, however, AG is increasing and thus would recheck ABG in AM to recheck acid-base status -Continue PO Sodium bicarbonate -FENa and FE-Urea both suggestive of pre-renal cause and given oliguria, placed pt on 100 cc NS x 2L until pt is re-assessed -Renal U/S did not suggest evidence of post-renal failure (3) Acute on chronic renal insufficiency Current Visit: Yes Status: Acute Code(s): N28.9 - DISORDER OF KIDNEY AND URETER, UNSPECIFIED; N18.9 - CHRONIC KIDNEY DISEASE, UNSPECIFIED SNOMED Code(s ): 208267531 Comment: -Please see above discussion (4) Anemia Current Visit: Yes Status: Acute Code(s): D64.9 - ANEMIA, UNSPECIFIED SNOMED Code(s): 448079522 Comment: -Likely due to chronic GIB -No reports of GIB o/n -Has had relatively stable H&H, however, slight drop today---will repeat at ~ 1600 and will D/C low dose DVT prophylaxis if continues to decrease; prophylaxis placed given HCAP and was quite sick with stable H&H and given fx, also at high risk for DVTwill follow CBC -EGD 05/03 reveals: 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 Maria and still waiting on colonoscopy data from another facility--- mentions that if no significant lesion found there, then anticoagulation can be reconsidered in a few weeks once the above UGI lesions has had some time to heal (5) Controlled atrial fibrillation Current Visit: Yes Status: Acute Code(s): I48.91 - UNSPECIFIED ATRIAL FIBRILLATION SNOMED Code(s): 677926970 Comment: -Rate controlled, no RVR -Continue propafenone and hold xarelto and give a few weeks for mucosa to heal unless significant findings on previous colonoscopy done in another facility -Maintain tele -Please see above discussion (6) HTN (hypertension) Current Visit: Yes Status: Acute Code(s): I10 - ESSENTIAL (PRIMARY) HYPERTENSION SNOMED Code(s): 35078005 Comment: - BP stable (7) Ankle fracture Current Visit: Yes Status: Acute Code(s): S82.899A - OTH FRACTURE OF UNSP LOWER LEG, INIT FOR CLOS FX SNOMED Code(s): 26638962 Comment: - Stable, casted, pain control PRN (8) Hypothyroidism Current Visit: No Status: Acute Code(s): E03.9 - HYPOTHYROIDISM, UNSPECIFIED SNOMED Code(s): 05804252 Comment: - cotninue synthroid (9) CKD (chronic kidney disease) stage 3, GFR 30-59 ml/min Current Visit: Yes Status: Acute Code(s): N18.3 - CHRONIC KIDNEY DISEASE, STAGE 3 (MODERATE) SNOMED Code(s): 886965953 Comment: - Renal function back to baseline (10) DVT prophylaxis Current Visit: No Status: Acute Code(s): RVG3681 - SNOMED Code(s): 437661645 Comment: -Continue Lovenox SQ, low dose given advanced age---will await repeat CBC ordered; no reports of GIB -D/W Orthopedics Status and Disposition: -For PT eval -For possible rehab placement
[2018-05-07] MEDS ORDERED: Clindamycin 300 MG IVPREMIX(* 300 MG/50 ML SDV IV SCH (16:00)
[2018-05-07 16:58] LABS: ABS Basophils 0 10^3/ul (0-0.2); ABS Eosinophils 0 10^3/ul (0-0.6); ABS Lymphocytes 0.4 10^3/ul (1.0-4.8); ABS Monocytes 0.5 10^3/ul (0-0.8); ABS Neutrophils 13.9 10^3/ul (1.5-7.7); ABS Nucleated RBC 0 10^3/ul; Eosinophil % 0 % (0-6); Hematocrit 29 % (35-47); Hemoglobin 9.5 g/dl (12.0-16.0); Lymphocyte % 2.5 % (25-47); Mean Corpuscular HGB Conc 33 g/dl (31-36); Mean Corpuscular Hemoglobin 26 pg (27-31); Mean Corpuscular Volume 80 fL (80-97); Nucleated Red Blood Cells % 0.1; Platelet Count 314 10^3/ul (150-450); Red Blood Count 3.63 10^6/ul (4.00-5.40); Red Cell Distribution Width 21 % (10.5-15); White Blood Count 14.8 10^3/ul (3.5-10.8)
[2018-05-07] MEDS: Atorvastatin* 10 MG TAB PO SCH (17:11)
[2018-05-07] MEDS: Gabapentin CAP(*) 300 MG PO SCH (20:58)
[2018-05-07 22:06] LABS: Hematocrit 28 % (35-47); Hemoglobin 8.9 g/dl (12.0-16.0); Mean Corpuscular HGB Conc 31 g/dl (31-36); Mean Corpuscular Hemoglobin 25 pg (27-31); Mean Corpuscular Volume 81 fL (80-97); Mean Platelet Volume 7.8 fL (7.4-10.4); Platelet Count 318 10^3/ul (150-450); Red Blood Count 3.51 10^6/ul (4.00-5.40); Red Cell Distribution Width 20 % (10.5-15); White Blood Count 13.7 10^3/ul (3.5-10.8)
[2018-05-08] MEDS: Clindamycin 300 MG IVPREMIX(* 300 MG/50 ML SDV IV SCH ×3 (00:39→17:49)
[2018-05-08] MEDS: NS 0.9% 1000 ML* 1,000 ML IV SCH (00:41)
[2018-05-08] MEDS: methylPREDNISolone SOD 40 MG* 1 ML VIAL IV SCH ×2 (02:40→13:58)
[2018-05-08] MEDS: Levothyroxine TAB* 88 MCG TAB PO SCH (05:34)
[2018-05-08 07:51] LABS: ABS Basophils 0 10^3/ul (0-0.2); ABS Eosinophils 0 10^3/ul (0-0.6); ABS Lymphocytes 0.4 10^3/ul (1.0-4.8); ABS Monocytes 0.4 10^3/ul (0-0.8); ABS Neutrophils 11.5 10^3/ul (1.5-7.7); ABS Nucleated RBC 0 10^3/ul; Eosinophil % 0 % (0-6); Hematocrit 28 % (35-47); Hemoglobin 9.1 g/dl (12.0-16.0); Mean Corpuscular HGB Conc 33 g/dl (31-36); Mean Corpuscular Hemoglobin 26 pg (27-31); Mean Corpuscular Volume 80 fL (80-97); Nucleated Red Blood Cells % 0.1; Platelet Count 299 10^3/ul (150-450); Red Blood Count 3.46 10^6/ul (4.00-5.40); Red Cell Distribution Width 20 % (10.5-15); White Blood Count 12.3 10^3/ul (3.5-10.8)
[2018-05-08 08:09] LABS: EGFR Non-African American 52.7 (>60)
[2018-05-08] MEDS: Tiotropium CAP.INH* CAP.INH/18 MCG (USE ORDER SET !) INH SCH (08:09)
[2018-05-08] MEDS: Omeprazole CAP* 20 MG PO SCH (08:36)
[2018-05-08] MEDS: proPAFENone TAB* 150 MG PO SCH ×2 (08:36→20:07)
[2018-05-08] MEDS: Aspirin EC TAB* 81 MG TAB.EC PO SCH (08:36)
[2018-05-08] MEDS: Sodium Bicarbonate (ANTACID)* 650 MG TAB PO SCH ×3 (08:36→20:11)
[2018-05-08] MEDS: Docusate CAP* 100 MG PO PRN (08:36)
[2018-05-08] MEDS: Enoxaparin(*) 30 MG/0.3 ML SYR SUBCUT SCH (09:57)
--- NOTE | 2018-05-08 14:18 | PN ---
Subjective Date of Service: 05/08/18 Interval History: She had a large soft, brown BM. RN did not think any evidence of blood Son today is investigating [facility] which [facility] accepted patient, planned discharge tomorrow. denies cp, sob, feeling chilly today. no fevers. Hgb9.1 Objective Active Medications: Acetaminophen (Tylenol Tab*) 650 mg PO Q4H PRN PRN Reason: FEVER/PAIN Last Admin: 05/06/18 12:19 Dose: 650 mg Al Hydrox/Mg Hydrox/Simethicone (Maalox Plus*) 30 ml PO Q6H PRN PRN Reason: INDIGESTION Albuterol (Ventolin 2.5 Mg/3 Ml Neb.Diana*) 2.5 mg INH Q2H PRN PRN Reason: SOB/WHEEZING Aspirin (Aspirin Ec Tab*) 81 mg PO DAILY [facility] Last Admin: 05/08/18 08:36 Dose: 81 mg Atorvastatin Calcium (Lipitor*) 10 mg PO QPM [facility] Last Admin: 05/07/18 17:11 Dose: 10 mg Docusate Sodium (Colace Cap*) 100 mg PO BID PRN PRN Reason: CONSTIPATION Last Admin: 05/08/18 08:36 Dose: 100 mg Enoxaparin Sodium (Lovenox(*)) 30 mg SUBCUT Q24H [facility] Last Admin: 05/08/18 09:57 Dose: 30 mg Gabapentin (Neurontin Cap(*)) 1,500 mg PO BEDTIME [facility] Last Admin: 05/07/18 20:58 Dose: 1,500 mg Hydroxyzine HCl (Atarax Tab*) 50 mg PO Q6H PRN PRN Reason: Anxiety/Agitation Last Admin: 05/05/18 10:23 Dose: 50 mg Sodium Chloride (Ns 0.9% 1000 Ml*) 1,000 mls @ 100 mls/hr IV PER RATE [facility] Stop: 05/09/18 01:03 Last Admin: 05/08/18 00:41 Dose: 100 mls/hr Clindamycin HCl/Dextrose (Cleocin 300 Mg Ivpemix(*)) 300 mg in 50 mls @ 200 mls /hr IV Q8H [facility] Last Admin: 05/08/18 08:36 Dose: 200 mls/hr Levothyroxine Sodium (Synthroid Tab*) 88 mcg PO 0600 [facility] Last Admin: 05/08/18 05:34 Dose: 88 mcg Methylprednisolone Sodium Succinate (Solu-Medrol 40 Mg) 40 mg IV Q12H [facility] Last Admin: 05/08/18 13:58 Dose: 40 mg Omeprazole (Prilosec Cap*) 20 mg PO DAILY [facility] Last Admin: 05/08/18 08:36 Dose: 20 mg Ondansetron HCl (Zofran Inj*) 4 mg IV Q4H PRN PRN Reason: NAUSEA/VOMITING Propafenone HCl (Rythmol*) 150 mg PO BID [facility] Last Admin: 05/08/18 08:36 Dose: 150 mg Sodium Bicarbonate (Sodium Bicarbonate (Antacid)*) 1,300 mg PO TID [facility] Last Admin: 05/08/18 13:58 Dose: 1,300 mg Tiotropium [place] (Spiriva Cap.Inh*) 1 cap INH 0900 [facility] Last Admin: 05/08/18 08:09 Dose: 1 cap Tramadol HCl (Ultram*) 50 mg PO Q6H PRN PRN Reason: leg pain Last Admin: 05/04/18 00:09 Dose: 50 mg Vital Signs - 8 hr 05/08/18 05/08/18 05/08/18 07:45 08:10 08:35 Temperature 97.5 F Pulse Rate 79 75 Respiratory 16 16 20 Rate Blood Pressure 144/72 (mmHg) O2 Sat by Pulse 91 93 Oximetry Oxygen Devices in Use Now: None Appearance: NAD Eyes: No Scleral Icterus, PERRLA Respiratory: Symmetrical Chest Expansion and Respiratory Effort, Clear to Auscultation Cardiovascular: NL Sounds; No Murmurs; No JVD, RRR Abdominal: NL Sounds; No Tenderness; No Distention, No Hepatosplenomegaly Extremities: - - left ankle in splint, edema above Skin: No Rash or Ulcers Neurological: Alert and Oriented x 3, NL Sensation, NL Muscle Strength and Tone Nutrition: Taking PO's Result Diagrams: 05/08/18 07:14 05/08/18 07:14 Additional Lab and Data: Laboratory Results - last 24 hr 05/08/18 05/08/18 07:14 07:14 WBC 12.3 H RBC 3.46 L Hgb 9.1 L Hct 28 L MCV 80 MCH 26 L MCHC 33 RDW 20 H Plt Count 299 MPV 8.0 Neut % (Auto) 93.8 H Lymph % (Auto) 3.0 L Band[place] % (Auto) 3.2 Eos % (Auto) 0 Baso % (Auto) 0 Absolute Neuts (auto) 11.5 H Absolute Lymphs (auto) 0.4 L Absolute Monos (auto) 0.4 Absolute Eos (auto) 0 Absolute Basos (auto) 0 Absolute Nucleated RBC 0 Nucleated RBC % 0.1 Sodium 144 Potassium 3.6 Chloride 116 H Carbon Dioxide 21 L Anion Gap 7 BUN 36 H Creatinine 1.00 H Est GFR ( Amer) 63.8 Est GFR (Non-Af Amer) 52.7 BUN/Creatinine Ratio 36.0 H Glucose 154 H Calcium 8.4 L Phosphorus 1.6 L Magnesium 2.0 Total Bilirubin 0.50 AST 21 ALT 18 Alkaline Phosphatase 53 Total Protein 5.1 L Albumin 2.7 L Globulin 2.4 Albumin/Globulin Ratio 1.1 Microbiology and Other Data: Microbiology 05/04/18 01:53 Blood Venous Aerobic Blood Culture - Preliminary No Growth Day 4 05/04/18 01:53 Blood Venous Anaerobic Blood Culture - Preliminary No Growth Day 4 05/05/18 14:03 Nasal Influenza Types A,B Antigen - Final Specimen received for Influenza A/B Molecular testing 05/03/18 15:18 Gastric Antrum CLOtest - Final 05/02/18 17:40 Urine Urine Culture - Final 05/02/18 16:45 Nasal Nasal Screen MRSA (PCR) - Final Mrsa Not Detected 05/02/18 12:46 Stool Stool Occult Blood (FLAVIA) - Final Assess/Plan/Problems-Billing Assessment: 87 year old female PMH of afib on xarelto that presented to ED s/p fall, found to be profoundly anemic (hgb 5.6)and iron deficient. left lateral malleous fracture. s/p EGD with gastritis, no clear active bleeding source. Stool occult negative. - Patient Problems (1) HCAP (healthcare-associated pneumonia) Current Visit: Yes Status: Acute Code(s): J18.9 - PNEUMONIA, UNSPECIFIED ORGANISM SNOMED Code(s): 141124189 Comment: this was suspected given an overnight respiratory event and tachypnea and leukocytosis. No focal infiltrate on the CXR or CTA. 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 Maria and still waiting on colonoscopy data from another facility--- mentions that if no significant lesion found there, then anticoagulation can be reconsidered in a few weeks once the above UGI lesions has had some time to heal (3) Ankle fracture Current Visit: Yes Status: Acute Code(s): S82.899A - OTH FRACTURE OF UNSP LOWER LEG, INIT FOR CLOS FX SNOMED Code(s): 43227650 Comment: - Stable, casted, pain control PRN Status and Disposition: - [facility] likely tomorrow. -For possible rehab placement
[2018-05-08] MEDS: Atorvastatin* 10 MG TAB PO SCH (17:50)
[2018-05-08] MEDS: Gabapentin CAP(*) 300 MG PO SCH (20:09)
[2018-05-09] MEDS: Clindamycin 300 MG IVPREMIX(* 300 MG/50 ML SDV IV SCH ×2 (00:40→09:28)
[2018-05-09] MEDS: methylPREDNISolone SOD 40 MG* 1 ML VIAL IV SCH (02:28)
[2018-05-09] MEDS: Levothyroxine TAB* 88 MCG TAB PO SCH (05:39)
[2018-05-09] MEDS: Tiotropium CAP.INH* CAP.INH/18 MCG (USE ORDER SET !) INH SCH (07:18)
[2018-05-09] MEDS: Omeprazole CAP* 20 MG PO SCH (09:28)
[2018-05-09] MEDS: Sodium Bicarbonate (ANTACID)* 650 MG TAB PO SCH (09:29)
[2018-05-09] MEDS: proPAFENone TAB* 150 MG PO SCH (09:29)
[2018-05-09] MEDS: Aspirin EC TAB* 81 MG TAB.EC PO SCH (09:29)
[2018-05-09] MEDS: Enoxaparin(*) 30 MG/0.3 ML SYR SUBCUT SCH (09:30)
[2018-05-09] MEDS ORDERED: Furosemide TAB* 20 MG PO ONE (09:56)
--- NOTE | 2018-05-09 13:10 | DS ---
DATE OF ADMISSION: 05/02/2018. DATE OF DISCHARGE: 05/09/2018. ADMITTING PROVIDER: Ashlee Jones NP. PRIMARY CARE PHYSICIAN: Dr. Haylee Milan. OUTPATIENT INVENTORY CLERK: Dr. Ceci Osuna. CONSULTING ORTHOPEDIC SURGEON: Dr. Alfred Hill. ATTENDING PHYSICIAN ON THE DAY OF DISCHARGE: Dr. Jack Reza. CHIEF COMPLAINT: Fall; left ankle pain; dizziness. 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 HISTORY OF PRESENT ILLNESS AND HOSPITAL COURSE: Zohra West is an 87-year- old female with a past medical history of paroxysmal atrial fibrillation, on Xarelto, coronary artery disease, hypertension, hyperlipidemia, COPD, hypothyroidism, chronic kidney disease stage 3 who sustained a fall at home and presented to the emergency room. Please see the history and physical of Ashlee Jones NP for full details. Briefly, the patient felt weak, dizzy, and fell while getting off the toilet and was unable to get herself up off the floor. She had to crawl to press her call button. She reported about a month ago she was unable to exercise on her recumbent bike due to increasing shortness of breath. Her son noticed that she looked slightly paler than usual. She had been seen at [facility] three days prior and diagnosed with a urinary tract infection and was prescribed Bactrim. She initially had a hemoglobin of 5.6 and acute kidney injury with a creatinine of 1.99 (previously 1.3 to 4 baseline). She had an ankle x-ray which showed an oblique, nondisplaced fracture of the distal left fibula and was placed in a splint in the emergency room. She was seen by Dr. Hill. She had negative stool occult blood. 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 The biopsies of the duodenum showed benign small intestinal mucosa with no significant pathologic abnormalities. The esophageal distal showed ulcerative acutely inflamed columnar-type mucosa, there was absent intestinal metaplasia, and absent dysplasia. The patient's Xarelto had been held and her hemoglobin was stable. Outpatient records from her prior colonoscopy were obtained from 08/30/2006 at [facility] that showed ascending colon, early tubular adenoma, and a hyperplastic polyp at the hepatic flexure. Her course was complicated by fevers, tachypnea, altered mental status, and concern for possible hospital-acquired pneumonia, and she was initially started on Vancomycin and then transitioned to IV Clindamycin. Notably, she had a CT chest angiogram on May 05 which showed no evidence of pulmonary embolism. There was mild cardiomegaly, a small pericardial effusion, and small to moderate bilateral pleural effusions. There was increased parenchymal attenuation at the upper lobes, possibly due to pulmonary edema or early interstitial lung disease. She worked with Physical Therapy and recommendation for further rehabilitation stay was recommended. She was having difficulty maintaining the nonweightbearing of the left lower extremity. She is being discharged to [facility]. She additional received IV Solu-Medrol given the tachypnea and history of COPD, and is being transitioned to oral Prednisone on discharge. Orthopedics recommended Lovenox DVT prophylaxis and will give a short course of that until she can be transitioned back to her Xarelto which the GI physicians recommended in a "few weeks" after the upper GI lesions had time to heal. For A-fib, she was continued on her Propafenone. Her acute kidney injury improved and her creatinine on discharge was 1.00. Hemoglobin on discharge was 9.1. Of note, she also was found to be iron deficient with an iron less than 15, iron sat of 3, ferritin of 10.3, and she is being started on iron supplements on discharge. She also has a new medication for Spiriva. DISCHARGE MEDICATIONS: 1. Aspirin 81 mg daily. 2. Docusate 100 mg p.o. b.i.d. 3. Lovenox 30 mg daily. 4. Gabapentin, I am going to recommend that she decrease her Gabapentin from 1500 mg at bedtime to 600 mg at bedtime. 5. Levothyroxine (Synthroid) 88 mcg p.o. daily. 6. Prilosec 20 mg p.o. daily (new). 7. Propafenone 150 mg p.o. b.i.d. 8. Simvastatin 20 mg p.o. q.p.m. 9. Spiriva one capsule inhaled daily (new). 10. Tylenol 650 mg p.o. q.6 hours prn. 11. Calcium Carbonate/vitamin D3 one tab p.o. daily. 12. Clindamycin 600 mg p.o. t.i.d. for 24 more tabs. 13. Ferrous Gluconate 324 mg p.o. b.i.d. 14. Losartan 25 mg daily, decreased from 50 mg b.i.d. 15. Prednisone 20 mg tabs to take 40 mg for 4 days, then 20 mg for 4 days, then stop. 16. Xarelto 15 mg daily, not to be started until 10 days from now when she transitions from the Lovenox. 17. Spiriva inhaled device. DISCHARGE DIET: Pureed heart-healthy for the next week and then transition to full solid diet with thin liquids. FOLLOW-UP: Please follow-up with Dr. Haylee Milan within four days of discharge from [facility]. Follow-up with Dr. Hill within seven days of discharge. Follow-up with Dr. Maria within one to two months of discharge. TIME SPENT ON THIS DISCHARGE: 35 minutes. [id number]/[facility] #: [id number] [facility]
[2018-05-09 13:39] VITALS: BP 159/71
[2018-05-10] MEDS ORDERED: Vancomycin Trough Check NOTE FOLLOW UP ONE (11:30)
== END 2018-05-09 14:05 | DRG 811 ==
LOC: ED 11:30 → ICU 14:29 → MEDTELE 05-04 03:31 → MED 05-08 13:14
PROVIDERS: ADMIT Internal Medicine; ATTEND Internal Medicine
PROC: 30233N1 Transfusion of Nonautologous Red Blood Cells into Peripheral Vein, Percutaneous Approach (ICD-10-PCS; 2018-05-03)
PROC: 0DB98ZX Excision of Duodenum, Via Natural or Artificial Opening Endoscopic, Diagnostic (ICD-10-PCS; 2018-05-03)
PROC: 0DB38ZX Excision of Lower Esophagus, Via Natural or Artificial Opening Endoscopic, Diagnostic (ICD-10-PCS; 2018-05-03)
PROC: 0DB68ZX Excision of Stomach, Via Natural or Artificial Opening Endoscopic, Diagnostic (ICD-10-PCS; 2018-05-03)
PROC: 2W3RX1Z Immobilization of Left Lower Leg using Splint (ICD-10-PCS; principal; 2018-05-04)
DX: D50.9 Iron deficiency anemia, unspecified (principal); J18.9 Pneumonia, unspecified organism; N39.0 Urinary tract infection, site not specified; N17.9 Acute kidney failure, unspecified; J44.0 Chronic obstructive pulmonary disease with (acute) lower respiratory infection; E87.4 Mixed disorder of acid-base balance; E87.3 Alkalosis; I13.0 Hypertensive heart and chronic kidney disease with heart failure and stage 1 through stage 4 chronic kidney disease, or unspecified chronic kidney disease; I31.3 Pericardial effusion (noninflammatory); K92.2 Gastrointestinal hemorrhage, unspecified; I25.10 Atherosclerotic heart disease of native coronary artery without angina pectoris; E78.5 Hyperlipidemia, unspecified; E03.9 Hypothyroidism, unspecified; N18.3 Chronic kidney disease, stage 3 (moderate); W19.XXXA Unspecified fall, initial encounter; Z96.643 Presence of artificial hip joint, bilateral; E86.1 Hypovolemia; Z66 Do not resuscitate; S51.012A Laceration without foreign body of left elbow, initial encounter; I50.9 Heart failure, unspecified; I45.10 Unspecified right bundle-branch block; M19.90 Unspecified osteoarthritis, unspecified site; K29.70 Gastritis, unspecified, without bleeding; K44.9 Diaphragmatic hernia without obstruction or gangrene; K22.70 Barrett's esophagus without dysplasia; I48.0 Paroxysmal atrial fibrillation; S82.435A Nondisplaced oblique fracture of shaft of left fibula, initial encounter for closed fracture; Z79.01 Long term (current) use of anticoagulants; M85.872 Other specified disorders of bone density and structure, left ankle and foot; E87.8 Other disorders of electrolyte and fluid balance, not elsewhere classified; Y92.091 Bathroom in other non-institutional residence as the place of occurrence of the external cause; R09.02 Hypoxemia; Z95.5 Presence of coronary angioplasty implant and graft; Z95.0 Presence of cardiac pacemaker; Z98.42 Cataract extraction status, left eye; Z98.41 Cataract extraction status, right eye; Z88.8 Allergy status to other drugs, medicaments and biological substances; Z80.1 Family history of malignant neoplasm of trachea, bronchus and lung; Z83.3 Family history of diabetes mellitus; Z87.891 Personal history of nicotine dependence; Z82.49 Family history of ischemic heart disease and other diseases of the circulatory system; Z83.49 Family history of other endocrine, nutritional and metabolic diseases; Z83.79 Family history of other diseases of the digestive system; Z79.82 Long term (current) use of aspirin; Z79.52 Long term (current) use of systemic steroids; K22.8 Other specified diseases of esophagus; Z91.81 History of falling; K63.5 Polyp of colon
CPT/HCPCS: 36415; 36600; 70450; 71045; 71275; 76775; 80048; 80053; 80202; 81003; 81015; 82272; 82570; 82728; 82803; 83540; 83550; 83605; 83735; 84100; 84300; 84436; 84443; 84484; 84540; 85014; 85018; 85025; 85027; 85610; 85730; 86850; 86900; 86901; 86922; 87040; 87077; 87086; 87186; 87641; 88305; 93005; 94640; 99156; 99212; 99285; A9270-GY; G0463; G8978-GP-CL; G8979-GP-CI; J0696; J1630; J1650; J1940; J2060; J2250; J2543; J2765; J2920; J3010; J3370; J3475; P9040; Q9967

== ENCOUNTER 2018-06-11 12:17 | Inpatient (IN) | payer MEDICARE ==
--- NOTE | 2018-06-11 12:27 | ED ---
Abdominal Pain/Female - History of Current Complaint Stated Complaint: WEAKNESS Time Seen by Provider: 06/11/18 12:25 Allergies/Adverse Reactions: Allergies Allergy/AdvReac Type Severity Reaction Status Date / Time amiodarone Allergy See Comment Verified 04/29/18 11:50 PMH/Surg Hx/FS Hx/Imm Hx Endocrine/Hematology History: Reports: Hx Anticoagulant Therapy, Hx Thyroid Disease, Hx Anemia Denies: Hx Blood Transfusions - Today was first blood trf, Hx Diabetes, Hx Unexplained Bleeding, Other Endocrine/Hematological Disorders Cardiovascular History: Reports: Hx Angina, Hx Angioplasty, Hx Auto Implanted Cardiovert Defib, Hx Congestive Heart Failure, Hx Coronary Artery Disease, Hx Hypercholesterolemia, Hx Hypertension - on medication, Hx Pacemaker/ICD, Hx Syncope, Other Cardiovascular Problems/Disorders - HEART DISEASE Denies: Hx Aneurysm, Hx Cardiac Arrest, Hx Cardiomegaly, Hx Congenital Heart Disease, Hx Deep Vein Thrombosis, Hx Embolism, Hx Hypotension, Hx Peripheral Vascular Disease, Hx Rheumatic Fever, Hx Valvular Heart Disease Respiratory History: Reports: Hx Chronic Obstructive Pulmonary Disease (COPD) Denies: Hx Asthma, Hx Chronic Bronchitis, Hx Cystic Fibrosis, Hx Lung Cancer , Hx Pleural Effusion, Hx Pneumonia, Hx Pulmonary Edema, Hx Pulmonary Embolism, Hx Seasonal Allergies GI History: Reports: Hx Obstructive Bowel Denies: Hx Ulcer Musculoskeletal History: Reports: Hx Arthritis, Hx Back Problems, Other Musculoskeletal History - L ankle fracture 05/02/2018 Sensory History: Reports: Hx Cataracts, Hx Contacts or Glasses Denies: Hx Hearing Aid Opthamlomology History: Reports: Hx Cataracts, Hx Contacts or Glasses Neurological History: Denies: Hx Dementia, Hx Developmental Delay, Hx Headaches, Hx Migraine, Hx Nerve Disease, Hx Seizures, Hx Spinal Cord Injury, Hx Transient Ischemic Attacks (TIA), Other Neuro Impairments/Disorders Psychiatric History: Denies: Hx Anxiety, Hx Attention Deficit Hyperactivity Disorder, Hx Depression, Hx Bipolar Disorder, Other Psychiatric Issues/Disorders - Surgical History Surgery Procedure, Year, and Place: Bilateral hips - [place], 1997, 2004. Pacemaker, stent.- 2011. bilat cataract surgery. Apr 2016- Appendectomy Hx Anesthesia Reactions: No - Immunization History Date of Influenza Vaccine: 2017 Infectious Disease History: Reports: Hx Shingles Denies: Hx Clostridium Difficile, Hx Hepatitis, Hx Human Immunodeficiency Virus (HIV), Hx of Known/Suspected MRSA, Hx Tuberculosis, Hx Known/Suspected VRE , Hx Known/Suspected VRSA, History Other Infectious Disease - Family History Known Family History: Positive: Cardiac Disease, Diabetes, Other - Cancer - Social History Alcohol Use: None Substance Use Type: Reports: None Hx Tobacco Use: No Smoking Status (MU): Former Smoker Have You Smoked in the Last Year: No Discharge - Discharge Plan Referrals: Haylee Milan MD [Primary Care Provider] - - Attestation Statements Document Initiated by Scribe: Yes Documenting Scribe: Traci Cartagena Provider For Whom Scribe is Documenting (Include Credential): Dr. Nima Govea MD Scribe Attestation: Traci Bland , scribed for Dr. Nima Govea MD on 06/11/18 at 1227.
[2018-06-11] MEDS: NS 0.9% 1000 ML* 2,000 ML IV ONE (12:47)
[2018-06-11 13:03] LABS: Hematocrit 22 % (35-47); Hemoglobin 6.8 g/dl (12.0-16.0); Mean Corpuscular HGB Conc 32 g/dl (31-36); Mean Corpuscular Hemoglobin 29 pg (27-31); Mean Corpuscular Volume 91 fL (80-97); Platelet Count 449 10^3/ul (150-450); Red Blood Count 2.36 10^6/ul (4.00-5.40); Red Cell Distribution Width 29 % (10.5-15); White Blood Count 26.9 10^3/ul (3.5-10.8)
[2018-06-11 13:06] LABS: EGFR Non-African American 47.2 (>60)
--- NOTE | 2018-06-11 13:11 | ED ---
Complex/Multi-Sys Presentation - HPI Summary HPI Summary: The pt is an 87 y/o female brought in by ambulance to [facility] c/o abd pain and melena since today. EMS staff note fever (99F), lethargy, AMS, confusion, hypotension and a healing L foot fracture. The pt denies hematuria, dysuria, sore throat, coughing, SOB, dizziness, and lightheadedness. She arrives from [facility]. PMHx: GI bleed. Home Medications Medication Instructions Recorded Confirmed Type Acetaminophen TAB* [Tylenol TAB*] 650 mg PO Q6H PRN 05/02/18 06/11/18 History Ipratropium Br (Nf)0.03% Nasal 2 spray BOTH NARES QAM PRN 05/02/18 06/11/18 History [Ipratropium [place]] Levothyroxine TAB* [Synthroid 88 88 mcg PO DAILY 05/02/18 06/11/18 History MCG TAB*] Simvastatin TAB(NF) [Zocor 20 MG 20 mg PO QPM 05/02/18 06/11/18 History (NF)] proPAFENone TAB* [Rythmol*] 150 mg PO BID 05/02/18 06/11/18 History Gabapentin CAP(*) [Neurontin 300 600 mg PO BEDTIME #60 cap 05/09/18 06/11/18 Rx CAP(*)] Aspirin EC TAB* [Ecotrin EC Low 81 mg PO DAILY 06/11/18 06/11/18 History Dose 81 MG*] Calcium Carbonate/Vitamin D3 1 tab PO DAILY 06/11/18 06/11/18 History [Calcium 500 + Vit D Caplet] Ferrous Gluconate TAB* [Fergon 325 mg PO BID 06/11/18 06/11/18 History TAB*] Losartan TAB* [Cozaar TAB*] 25 mg PO DAILY 06/11/18 06/11/18 History Magnesium Oxide [Magnesium] 250 mg PO DAILY 06/11/18 06/11/18 History Omeprazole CAP* [Prilosec CAP* 20 40 mg PO DAILY 06/11/18 06/11/18 History MG] Rivaroxaban TAB(*) [Xarelto 15 15 mg PO DAILY 06/11/18 06/11/18 History mg(*)] Tiotropium CAP.INH* [Spiriva 1 cap INH DAILY 06/11/18 06/11/18 History CAP.INH*] - History Of Current Complaint Chief Complaint: EDAltMentalStatus Time Seen by Provider: 06/11/18 12:25 Hx Obtained From: Patient, EMS Onset/Duration: Sudden Onset, Still Present, Worse Since - Today Associated Signs And Symptoms: Positive: Abdominal Pain, Melena, Other - Hypotension. Negative: Dizziness, Back Pain - Allergies/Home Medications Allergies/Adverse Reactions: Allergies Allergy/AdvReac Type Severity Reaction Status Date / Time amiodarone Allergy See Comment Verified 06/11/18 12:39 Home Medications: Home Medications Aspirin EC TAB* [Ecotrin EC Low Dose 81 MG*] 81 mg PO DAILY 06/11/18 [History Confirmed 06/11/18] Calcium Carbonate/Vitamin D3 [Calcium 500 + Vit D Caplet] 1 tab PO DAILY [History Confirmed 06/11/18] Ferrous Gluconate TAB* [Fergon TAB*] 325 mg PO BID 06/11/18 [History Confirmed 06/11/18] Omeprazole CAP* [Prilosec CAP* 20 MG] 40 mg PO DAILY 06/11/18 [History Confirmed 06/11/18] Tiotropium CAP.INH* [Spiriva CAP.INH*] 1 cap INH DAILY 06/11/18 [History Confirmed 06/11/18] PMH/Surg Hx/FS Hx/Imm Hx Previously Healthy: No Endocrine/Hematology History: Reports: Hx Anticoagulant Therapy, Hx Thyroid Disease, Hx Anemia Denies: Hx Blood Transfusions - Today was first blood trf, Hx Diabetes, Hx Unexplained Bleeding, Other Endocrine/Hematological Disorders Cardiovascular History: Reports: Hx Angina, Hx Angioplasty, Hx Auto Implanted Cardiovert Defib, Hx Congestive Heart Failure, Hx Coronary Artery Disease, Hx Hypercholesterolemia, Hx Hypertension - on medication, Hx Pacemaker/ICD, Hx Syncope, Other Cardiovascular Problems/Disorders - HEART DISEASE Denies: Hx Aneurysm, Hx Cardiac Arrest, Hx Cardiomegaly, Hx Congenital Heart Disease, Hx Deep Vein Thrombosis, Hx Embolism, Hx Hypotension, Hx Peripheral Vascular Disease, Hx Rheumatic Fever, Hx Valvular Heart Disease Respiratory History: Reports: Hx Chronic Obstructive Pulmonary Disease (COPD) Denies: Hx Asthma, Hx Chronic Bronchitis, Hx Cystic Fibrosis, Hx Lung Cancer , Hx Pleural Effusion, Hx Pneumonia, Hx Pulmonary Edema, Hx Pulmonary Embolism, Hx Seasonal Allergies GI History: Reports: Hx Obstructive Bowel Denies: Hx Ulcer Musculoskeletal History: Reports: Hx Arthritis, Hx Back Problems, Other Musculoskeletal History - L ankle fracture 05/02/2018 Sensory History: Reports: Hx Cataracts, Hx Contacts or Glasses Denies: Hx Hearing Aid Opthamlomology History: Reports: Hx Cataracts, Hx Contacts or Glasses Neurological History: Denies: Hx Dementia, Hx Developmental Delay, Hx Headaches, Hx Migraine, Hx Nerve Disease, Hx Seizures, Hx Spinal Cord Injury, Hx Transient Ischemic Attacks (TIA), Other Neuro Impairments/Disorders Psychiatric History: Denies: Hx Anxiety, Hx Attention Deficit Hyperactivity Disorder, Hx Depression, Hx Bipolar Disorder, Other Psychiatric Issues/Disorders - Cancer History Cancer Type, Location and Year: None reported - Surgical History Surgery Procedure, Year, and Place: Bilateral hips - [place], 1997, 2004. Pacemaker, stent.- 2011. bilat cataract surgery. Apr 2016- Appendectomy Hx Anesthesia Reactions: No - Immunization History Date of Influenza Vaccine: 2017 Infectious Disease History: No Infectious Disease History: Reports: Hx Shingles Denies: Hx Clostridium Difficile, Hx Hepatitis, Hx Human Immunodeficiency Virus (HIV), Hx of Known/Suspected MRSA, Hx Tuberculosis, Hx Known/Suspected VRE , Hx Known/Suspected VRSA, History Other Infectious Disease, Traveled Outside the [place] in Last 30 Days - Family History Known Family History: Positive: Cardiac Disease, Diabetes, Other - Cancer - Social History Occupation: Retired Lives: Assisted Living - [facility] Alcohol Use: None Substance Use Type: Reports: None Hx Tobacco Use: No Smoking Status (MU): Former Smoker Have You Smoked in the Last Year: No Review of Systems Constitutional: Negative - Dizziness , lightheadedness, Other - Positive: AMS, confusion, lethargy, hypotension Positive: Fever - 99 F Negative: Sore Throat Negative: Shortness Of Breath, Cough Positive: Abdominal Pain, Other - Positive: Melena Genitourinary: Other - Positive; Healing L foot fracture Negative: dysuria, hematuria All Other Systems Reviewed And Are Negative: Yes Physical Exam - Summary Physical Exam Summary: Constitutional: Well-developed, Well-nourished, Alert. (-) Distressed Skin: Warm, Dry HENT: Normocephalic; Atraumatic Eyes: Conjunctiva normal Neck: Musculoskeletal ROM normal neck. (-) JVD, (-) Stridor, (-) Tracheal deviation Cardio: Rhythm regular, rate normal, Heart sounds normal; Intact distal pulses; The pedal pulses are 2+ and symmetric. Radial pulses are 2+ and symmetric. (-) Murmur Pulmonary/Chest wall: Effort normal. (-) Respiratory distress, (-) Wheezes, (-) Rales, (+)Slight crackles in the lower R lung Abd: Soft, (-) epigastric tenderness, (-) Distension, (-) Guarding, (-) Rebound , (+) Suprapubic tenderness Musculoskeletal: (-) Edema Lymph: (-) Cervical adenopathy Neuro: Alert, Oriented x3, Mildly disoriented Psych: Mood and affect Normal Triage Information Reviewed: Yes Vital Signs On Initial Exam: Initial Vitals Resp 20 06/11/18 12:31 Vital Signs Reviewed: Yes Diagnostics - Vital Signs Vital Signs Temp Pulse Resp BP Pulse Ox 06/11/18 12:35 97 06/11/18 12:33 85 26 93/48 95 06/11/18 12:32 99.6 F 85 14 93/48 95 06/11/18 12:31 20 - Laboratory Lab Results: Lab Results 06/11/18 06/11/18 Range/Units 12:41 12:41 WBC 26.9 H (3.5-10.8) 10^3/ul RBC 2.36 L (4.00-5.40) 10^6/ul Hgb 6.8 L (12.0-16.0) g/dl Hct 22 L (35-47) % MCV 91 (80-97) fL MCH 29 (27-31) pg MCHC 32 (31-36) g/dl RDW 29 H (10.5-15) % Plt Count 449 (150-450) 10^3/ul MPV 7.0 L (7.4-10.4) fL Neut % (Auto) Pending Lymph % (Auto) Pending [place] % (Auto) Pending Eos % (Auto) Pending Baso % (Auto) Pending Absolute Neuts (auto) Pending Absolute Lymphs (auto) Pending Absolute Monos (auto) Pending Absolute Eos (auto) Pending Absolute Basos (auto) Pending Absolute Nucleated RBC Pending Nucleated RBC % Pending Lactic Acid 1.7 (0.5-2.0) mmol/L Result Diagrams: 06/13/18 05:26 06/13/18 05:26 Lab Statement: Any lab studies that have been ordered have been reviewed, and results considered in the medical decision making process. - Radiology CXR Radiology Interpretation Completed By: Radiologist Summary of Radiographic Findings: IMPRESSION: No active cardiopulmonary disease. The ED physician reviewed this radiology report. - EKG 14:089 Cardiac Rate: NL - 79 bpm EKG Rhythm: Sinus Rhythm Summary of EKG Findings: NSR at 79 BPM, P waves, QRS complex, and T waves are within normal limits, T waves and intervals are normal, no ischemic changes. This is a normal EKG Re-Evaluation - Re-Evaluation First Eval Re-Evaluation Time: 14:08 Change: Improved Second Eval Re-Evaluation Time: 14:36 Change: Unchanged Comment: The patient released a large loose diarrhea-like stool that is dark- brown to black in colour. Third Eval Re-Evaluation Time: 15:12 Change: Unchanged - I left a voicemail on Ms. Natarajan's son's phone. The intent of the call was to obtain consent for a blood transfusion becasue the pt is still confused. Complex Multi-Symp Course/Dx Course Of Treatment: An 87 year-old F presents to the ED with a CC of abd pain and melena since today. EMS staff note fever (99F), lethargy, AMS, confusion, hypotension and a healing L foot fracture. The pt denies hematuria, dysuria, sore throat, coughing, SOB, dizziness, and lightheadedness. A physical exam revealed slight crackles in the lower R lung, suprapubic tenderness and mildly disorientation. A CXR is unremarkable. An EKG is unremarkable. In the ED course , the pt was given N.s 0.9% 2000 ml IV, Pantoprazole 80 mg in 250 ml IVPB twice , Ciproflaxacin 400 mg in 200 ml IVPb, and Iodixanol 71 ml IV which improved the symptoms. I discussed the care of the pt with Dr. Pacheco- software configuration analyst who agreed to see the pt. Dr. Rowley- hospitalist agreed to admit the pt. Patient will be admitted with a final Dx of upper GI bleed, diarrhea, sepsis and colitis. Pt is agreeable with this plan. Allergies noted. - Diagnoses Provider Diagnoses: Upper GI bleeding, Diarrhea, Sepsis, Colitis - Physician Notifications Discussed Care Of Patient With: Mickey Pacheco - Gastroentroenterologist Time Discussed With Above Provider: 14:41 - Instructed by Provider To: MD Will See In ED - 14:45- Dr. Amrik MD- hospitalist agreed to admit the pt. Discharge - Sign-Out/Discharge Documenting (check all that apply): Patient Departure - Admit - Discharge Plan Condition: Improved Disposition: ADMITTED TO [facility] - Billing Disposition and Condition Condition: IMPROVED Disposition: Admitted to [facility] - Attestation Statements Document Initiated by Pearlibanitha: Yes Documenting Scribe: Traci Cartagena Provider For Whom Zenobia is Documenting (Include Credential): Dr. Nima Govea MD Scribe Attestation: Traci Bland , scribed for Dr. Nima Govea MD on 06/13/18 at 1110. Scribe Documentation Reviewed: Yes Provider Attestation: The documentation as recorded by the scribTraci welsh accurately reflects the service I personally performed and the decisions made by me, Dr. Nima Govea MD Status of Scribe Document: Viewed
[2018-06-11 13:36] LABS: INR 1.48 (0.77-1.02)
[2018-06-11] MEDS ORDERED: Pantoprazole* 80 mg IN NS 80 MG/250 ML BAG IVPB ONE (14:05)
[2018-06-11] MEDS ORDERED: Pantoprazole IV* 40 MG IV ONE (14:05)
[2018-06-11] MEDS ORDERED: Ciprofloxacin 400MG IVPREMIX(* 400 MG/200 ML BAG IVPB ONE (14:11)
[2018-06-11] MEDS ORDERED: Iodixanol* (CONTRAST) 320 MG/ML 100 ML SDV IV ONE (14:50)
--- NOTE | 2018-06-11 15:06 | ADMNOTE ---
Subjective Date of Service: 06/11/18 Interval History: ADMISSION HISTORY AND PHYSICAL EXAM: Allergies Allergy/AdvReac Type Severity Reaction Status Date / Time amiodarone Allergy See Comment Verified 06/11/18 12:39 Home Medications Medication Instructions Recorded Confirmed Type Acetaminophen TAB* [Tylenol TAB*] 650 mg PO Q6H PRN 05/02/18 06/11/18 History Ipratropium Br (Nf)0.03% Nasal 2 spray BOTH NARES QAM PRN 05/02/18 06/11/18 History [Ipratropium [place]] Levothyroxine TAB* [Synthroid 88 88 mcg PO DAILY 05/02/18 06/11/18 History MCG TAB*] Simvastatin TAB(NF) [Zocor 20 MG 20 mg PO QPM 05/02/18 06/11/18 History (NF)] proPAFENone TAB* [Rythmol*] 150 mg PO BID 05/02/18 06/11/18 History Gabapentin CAP(*) [Neurontin 300 600 mg PO BEDTIME #60 cap 05/09/18 06/11/18 Rx CAP(*)] Aspirin EC TAB* [Ecotrin EC Low 81 mg PO DAILY 06/11/18 06/11/18 History Dose 81 MG*] Calcium Carbonate/Vitamin D3 1 tab PO DAILY 06/11/18 06/11/18 History [Calcium 500 + Vit D Caplet] Ferrous Gluconate TAB* [Fergon 325 mg PO BID 06/11/18 06/11/18 History TAB*] Losartan TAB* [Cozaar TAB*] 25 mg PO DAILY 06/11/18 06/11/18 History Magnesium Oxide [Magnesium] 250 mg PO DAILY 06/11/18 06/11/18 History Omeprazole CAP* [Prilosec CAP* 20 40 mg PO DAILY 06/11/18 06/11/18 History MG] Rivaroxaban TAB(*) [Xarelto 15 15 mg PO DAILY 06/11/18 06/11/18 History mg(*)] Tiotropium CAP.INH* [Spiriva 1 cap INH DAILY 06/11/18 06/11/18 History CAP.INH*] HPI: The patient seems to be a poor historian. She says she had diarrhea for several days, no pain and no emesis. I believe she came here from [facility] which she calls "the hospital." Family History: Findings - DM, lung ca. Social History: Findings - Quit smoking over 20 yrs ago. No alcohol abuse. Son Rogers Gonzalez is her SDM. Past Medical History: Findings - A fib, hypothyroid, CAD with stents 2011, HTN, PPM, CKD, COPD, BL TKA, BL cataract sx, tonsillectomy. Review of Systems - Measurements Intake and Output: Intake and Output Last 24 Hours 06/09/18 06/10/18 06/11/18 06/12/18 06:59 06:59 06:59 06:59 Weight 125 lb - Review of Systems General Comments: Patient's memory and understanding are too poor for a meaningful ROS. Objective Active Medications: Pantoprazole Sodium (Protonix Iv Bag*) 80 mg in 250 mls @ 25 mls/hr IVPB ED ONCE ONE Stop: 06/12/18 00:04 Ciprofloxacin/Dextrose (Cipro 400 Mg Ivpremix(*)) 400 mg in 200 mls @ 200 mls/ hr IVPB ED ONCE ONE Stop: 06/11/18 15:10 Vital Signs - 8 hr 06/11/18 06/11/18 06/11/18 12:31 12:32 12:33 Temperature 99.6 F Pulse Rate 85 85 Respiratory 20 14 26 Rate Blood Pressure 93/48 93/48 (mmHg) O2 Sat by Pulse 95 95 Oximetry 06/11/18 06/11/18 06/11/18 12:35 12:38 12:39 Temperature Pulse Rate 86 84 Respiratory 17 21 Rate Blood Pressure 113/53 107/54 (mmHg) O2 Sat by Pulse 97 97 96 Oximetry 06/11/18 06/11/18 06/11/18 13:00 13:03 13:32 Temperature Pulse Rate 80 80 80 Respiratory 21 21 22 Rate Blood Pressure 110/57 109/48 (mmHg) O2 Sat by Pulse 96 94 94 Oximetry 06/11/18 06/11/18 14:00 14:03 Temperature Pulse Rate 79 Respiratory 20 21 Rate Blood Pressure 108/47 (mmHg) O2 Sat by Pulse 94 Oximetry Oxygen Devices in Use Now: None Appearance: Alert, dupinr on ED stretcher. Neutral affect. Looks comfortable. Eyes: No Scleral Icterus Ears/Nose/Mouth/Throat: Clear Oropharnyx, Mucous Membranes Moist Neck: NL Appearance and Movements; NL JVP, No Thyroid Enlargement, Masses Cardiovascular: NL Sounds; No Murmurs; No JVD, RRR, No Edema, - Abdominal: NL Sounds; No Tenderness; No Distention, No Hepatosplenomegaly, - Extremities: No Edema, No Clubbing, Cyanosis, - Skin: No Rash or Ulcers, No Nodules or Sclerosis, - Neurological: NL Sensation - Can state her full name and her son's full name, her own age. No tremor. Result Diagrams: 06/11/18 12:41 06/11/18 12:41 Additional Lab and Data: Lab Results 06/11/18 06/11/18 Range/Units 12:41 12:41 WBC 26.9 H (3.5-10.8) 10^3/ul RBC 2.36 L (4.00-5.40) 10^6/ul Hgb 6.8 L (12.0-16.0) g/dl Hct 22 L (35-47) % MCV 91 (80-97) fL MCH 29 (27-31) pg MCHC 32 (31-36) g/dl RDW 29 H (10.5-15) % Plt Count 449 (150-450) 10^3/ul MPV 7.0 L (7.4-10.4) fL Neut % (Auto) Pending Lymph % (Auto) Pending [place] % (Auto) Pending Eos % (Auto) Pending Baso % (Auto) Pending Absolute Neuts (auto) Pending Absolute Lymphs (auto) Pending Absolute Monos (auto) Pending Absolute Eos (auto) Pending Absolute Basos (auto) Pending Absolute Nucleated RBC Pending Nucleated RBC % Pending Lactic Acid 1.7 (0.5-2.0) mmol/L Assess/Plan/Problems-Billing Assessment: - Patient Problems (1) GI bleed Current Visit: Yes Status: Acute Code(s): K92.2 - GASTROINTESTINAL HEMORRHAGE, UNSPECIFIED SNOMED Code(s): 30443518 Comment: Suspect UGI bleed with high BUN/creatinine ratio. IV pantoprazole infusion. Dr. Pacheco to see. 2 U PC's ordered, repeat H&H, BMP 2100 hrs and in AM. ICU care. IV fluids Hold rivaroxaban, ASA. (2) CKD (chronic kidney disease) stage 3, GFR 30-59 ml/min Current Visit: No Status: Acute Code(s): N18.3 - CHRONIC KIDNEY DISEASE, STAGE 3 (MODERATE) SNOMED Code(s): 073939848 Comment: est GFR 47.2 06/11/18. (3) Memory loss Current Visit: Yes Status: Acute Comment: I will discuss with her son. (4) HTN (hypertension) Current Visit: No Status: Acute Code(s): I10 - ESSENTIAL (PRIMARY) HYPERTENSION SNOMED Code(s): 96314291 Comment: losartan on hold (5) Hypothyroidism Current Visit: No Status: Acute Code(s): E03.9 - HYPOTHYROIDISM, UNSPECIFIED SNOMED Code(s): 90058775 Comment: TSH was low 05/02/18, reduce levothyroxine to 75 mcg daily . (6) Atrial fibrillation Current Visit: Yes Status: Acute Code(s): I48.91 - UNSPECIFIED ATRIAL FIBRILLATION SNOMED Code(s): 05307069 Comment: In NSR 06/11/18. AC on hold. (7) CAD (coronary artery disease) Current Visit: Yes Status: Acute Code(s): I25.10 - ATHSCL HEART DISEASE OF [place] CORONARY ARTERY W/O ANG PCTRS SNOMED Code(s): 18295669 Comment: Stents in 2011.
[2018-06-11] MEDS ORDERED: NS 0.9% w/ 20 Meq KCL 1000 ML* 1,000 ML IV SCH (16:00)
[2018-06-11 16:39] LABS: ABS Basophils 0 10^3/ul (0-0.2); ABS Eosinophils 0 10^3/ul (0-0.6); ABS Lymphocytes 1.5 10^3/ul (1.0-4.8); ABS Monocytes 1.6 10^3/ul (0-0.8); ABS Neutrophils 23.8 10^3/ul (1.5-7.7); ABS Nucleated RBC 0 10^3/ul; Nucleated Red Blood Cells % 0
[2018-06-11 16:40] LABS: Monocytes % 1 %
--- NOTE | 2018-06-11 19:37 | CONS ---
CONSULTATION REPORT: DATE OF CONSULT: 06/11/18 INDICATION: Diarrhea, anemia. NARRATIVE: Ms. West is a very pleasant 87-year-old female who presented to the emergency room with diarrhea that has been black. The patient is somewhat of a poor historian. She is unsure of how long her diarrhea has been present. When I asked her if she has any blood in the stool, she states "no, I cannot see the blood because the stool is so black." She denies any abdominal pain. No nausea, no vomiting. PAST MEDICAL HISTORY: She does have a history of recent lower extremity fracture, history of UTIs, AFib, coronary artery disease, hypertension, hyperlipidemia, COPD, hypothyroidism, chronic kidney disease. PAST SURGICAL HISTORY: Includes appendectomy, pacemaker, hip arthroplasty, cataracts, tonsillectomy, adenoidectomies. MEDICATIONS: Her medications at discharge just about a month ago include: 1. Spiriva. 2. She is on Xarelto. 3. Losartan. 4. Calcium. 5. Simvastatin. 6. Prilosec. 7. Levothyroxine. 8. Gabapentin. 9. Aspirin. She did have an upper endoscopy due to anemia with Dr. Maria. This was on 09/17. It was discussed to perform a colonoscopy; however, given her recent fracture, the son decided against this. 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 Biopsies also showed no celiac disease and no Teixeira's mucosa. The patient denies any fevers or chills. ALLERGIES: To AMIODARONE. REVIEW OF SYSTEMS: Twelve systems were reviewed, other than that mentioned in the HPI were unremarkable. PHYSICAL EXAM: Temperature is 99.9, blood pressure is 109/47, pulse is 87. General: Chronically ill-appearing female, in no apparent distress. Alert, oriented, pleasant, and fluent. HEENT: Mucous membranes are moist without lesions, ulcers or exudate. Neck: Supple. Trachea is midline. Head is normocephalic, atraumatic. Heart: Irregular rate and rhythm. No murmurs, rubs , or gallops. Lungs: Clear to auscultation bilaterally. No wheezes, rales, or rhonchi. Abdomen: Positive bowel sounds. Soft, nontender, nondistended. No hepatosplenomegaly, masses, rebound, or guarding. Skin is warm and dry. No rashes or ulcers. Psych: Normal affect. Good insight. Good judgment. DIAGNOSTIC STUDIES/LAB DATA: Of note, her white count is 26.9, hemoglobin is 6.8, platelets of 449. INR is 1.48. BUN is 32, creatinine is 1.10. Her BUN is about baseline for her. Microbiology, she does have a positive C. diff. ASSESSMENT AND PLAN: This is a pleasant 87-year-old female with a couple of issues. First is her diarrhea, she does have a positive Clostridium difficile. I will start her on Flagyl at this point for her Clostridium difficile. Additionally, she appears to be having an upper gastrointestinal bleed. Potentially, she has black stools. She did just have a recent EGD which did not reveal any positive findings. She is on an aspirin every day. She is on blood thinners now which she was not on before. Unfortunately, we likely are going to have to repeat her EGD. As far as colonoscopies go, her son has not wanted to pursue this in the past. This can be readdressed and confirmed. She is on IV Protonix. We will continue with this. We will continue to follow along very closely. [id number]/[facility] #: [id number] BERENICE
[2018-06-11] MEDS: proPAFENone TAB* 150 MG PO SCH (22:06)
[2018-06-11] MEDS: Vancomycin CAP* 125 MG CAP PO SCH (22:06)
[2018-06-11 23:23] LABS: ABS Basophils 0 10^3/ul (0-0.2); ABS Eosinophils 0 10^3/ul (0-0.6); ABS Lymphocytes 1.1 10^3/ul (1.0-4.8); ABS Monocytes 1.7 10^3/ul (0-0.8); ABS Neutrophils 20.4 10^3/ul (1.5-7.7); ABS Nucleated RBC 0 10^3/ul; Eosinophil % 0.1 %; Hematocrit 32 % (35-47); Lymphocyte % 4.8 %; Mean Corpuscular HGB Conc 32 g/dl (31-36); Mean Corpuscular Hemoglobin 30 pg (27-31); Mean Corpuscular Volume 94 fL (80-97); Mean Platelet Volume 7.4 fL (7.4-10.4); Nucleated Red Blood Cells % 0.1; Platelet Count 333 10^3/ul (150-450); Red Blood Count 3.37 10^6/ul (4.00-5.40); Red Cell Distribution Width 23 % (10.5-15); White Blood Count 23.3 10^3/ul (3.5-10.8)
[2018-06-11 23:33] LABS: Urine Appearance Cloudy; Urine Blood 1+ (Negative); Urine Color Yellow; Urine Ketones Negative (Negative); Urine Protein Negative (Negative); Urine Red Blood Cell Trace(0-2/hpf) (Absent); Urine Specific Gravity 1.034 (1.010-1.030); Urine Urobilinogen Negative (Negative); Urine White Blood Cell 2+(11-20/hpf) (Absent)
[2018-06-11 23:35] LABS: EGFR Non-African American 57.3 (>60)
[2018-06-11] MEDS: NS 0.9% w/ 20 Meq KCL 1000 ML* 1,000 ML IV SCH (23:40)
[2018-06-12] MEDS ORDERED: Potassium Chlor TAB* 20 MEQ TAB.ER PO ONE (00:30)
[2018-06-12] MEDS: Pantoprazole* 80 mg IN NS 80 MG/250 ML BAG IVPB SCH ×3 (00:48→21:09)
[2018-06-12] MEDS ORDERED: Levothyroxine TAB* 88 MCG TAB PO SCH (06:00)
[2018-06-12] MEDS: Levothyroxine TAB* 75 MCG TAB PO SCH (06:05)
[2018-06-12] MEDS: NS 0.9% w/ 20 Meq KCL 1000 ML* 1,000 ML IV SCH (06:05)
[2018-06-12 06:39] LABS: ABS Basophils 0 10^3/ul (0-0.2); ABS Eosinophils 0 10^3/ul (0-0.6); ABS Monocytes 1.6 10^3/ul (0-0.8); ABS Neutrophils 18.1 10^3/ul (1.5-7.7); ABS Nucleated RBC 0 10^3/ul; Eosinophil % 0.2 %; Hematocrit 29 % (35-47); Hemoglobin 9.3 g/dl (12.0-16.0); Lymphocyte % 4.8 %; Mean Corpuscular HGB Conc 32 g/dl (31-36); Mean Corpuscular Hemoglobin 29 pg (27-31); Mean Corpuscular Volume 91 fL (80-97); Mean Platelet Volume 8.2 fL (7.4-10.4); Nucleated Red Blood Cells % 0; Platelet Count 318 10^3/ul (150-450); Red Cell Distribution Width 23 % (10.5-15); White Blood Count 20.8 10^3/ul (3.5-10.8)
[2018-06-12 07:38] LABS: EGFR Non-African American 58.8 (>60)
--- NOTE | 2018-06-12 08:04 | PN ---
Subjective Date of Service: 06/12/18 Interval History: No pain, no nausea. No new c/o. Family History: Findings - DM, lung ca. Social History: Findings - Quit smoking over 20 yrs ago. No alcohol abuse. Son Rogers Gonzalez is her SDM. Past Medical History: Findings - A fib, hypothyroid, CAD with stents 2011, HTN, PPM, CKD, COPD, BL TKA, BL cataract sx, tonsillectomy. Objective Active Medications: Device (Tiotropium Inhaler Device*) 1 each INH 0900 ONE Stop: 06/12/18 09:01 Pantoprazole Sodium (Protonix Iv Bag*) 80 mg in 250 mls @ 25 mls/hr IVPB Q10H [facility] Last Admin: 06/12/18 00:48 Dose: 25 mls/hr Potassium Chloride/Dextrose (D5w Ns 0.9% 20meq Kcl 1000 Ml*) 1,000 mls @ 75 mls /hr IV PER RATE [facility] Levothyroxine Sodium (Synthroid Tab*) 75 mcg PO DAILY@0600 [facility] Last Admin: 06/12/18 06:05 Dose: 75 mcg Propafenone HCl (Rythmol*) 150 mg PO BID [facility] Last Admin: 06/11/18 22:06 Dose: 150 mg Tiotropium [place] (Spiriva Cap.Inh*) 1 cap INH DAILY [facility] Vancomycin HCl (Vancomycin Cap*) 125 mg PO QID [facility] Last Admin: 06/11/18 22:06 Dose: 125 mg Vital Signs - 8 hr 06/12/18 06/12/18 06/12/18 00:00 00:17 00:49 Temperature 99.2 F Pulse Rate 73 77 Respiratory 18 16 Rate Blood Pressure 118/60 (mmHg) O2 Sat by Pulse 100 96 Oximetry 06/12/18 06/12/18 06/12/18 01:00 01:01 02:00 Temperature Pulse Rate 74 74 74 Respiratory 19 23 19 Rate Blood Pressure 109/49 102/47 (mmHg) O2 Sat by Pulse 98 98 100 Oximetry 06/12/18 06/12/18 06/12/18 02:01 03:00 03:01 Temperature Pulse Rate 71 84 79 Respiratory 16 25 23 Rate Blood Pressure 117/58 (mmHg) O2 Sat by Pulse 100 99 98 Oximetry 06/12/18 06/12/18 06/12/18 04:00 04:01 05:00 Temperature 100.4 F Pulse Rate 73 72 73 Respiratory 20 17 18 Rate Blood Pressure 109/61 113/50 (mmHg) O2 Sat by Pulse 100 100 100 Oximetry 06/12/18 06/12/18 06/12/18 05:01 05:42 06:00 Temperature Pulse Rate 72 73 68 Respiratory 15 17 16 Rate Blood Pressure 113/50 101/44 (mmHg) O2 Sat by Pulse 100 98 100 Oximetry 06/12/18 06/12/18 06/12/18 06:01 07:00 07:42 Temperature 97 F Pulse Rate 67 Respiratory 15 18 Rate Blood Pressure (mmHg) O2 Sat by Pulse 100 Oximetry Oxygen Devices in Use Now: Nasal Cannula Appearance: Supine on ICU bed. Neutral affect. Looks comfortable. Eyes: No Scleral Icterus Neck: NL Appearance and Movements; NL JVP, No Thyroid Enlargement, Masses Respiratory: Symmetrical Chest Expansion and Respiratory Effort, Clear to Auscultation, Clear to Percussion Cardiovascular: NL Sounds; No Murmurs; No JVD, RRR, No Edema, - Abdominal: NL Sounds; No Tenderness; No Distention, No Hepatosplenomegaly, - Skin: No Nodules or Sclerosis, - - BL malar erythema Neurological: NL Sensation - Could not state name of facility although nurse had told her earlier this AM. No tremor. SHEA. Result Diagrams: 06/12/18 05:37 06/12/18 05:37 Additional Lab and Data: Lab Results 06/11/18 06/11/18 Range/Units 12:41 12:41 WBC 26.9 H (3.5-10.8) 10^3/ul RBC 2.36 L (4.00-5.40) 10^6/ul Hgb 6.8 L (12.0-16.0) g/dl Hct 22 L (35-47) % MCV 91 (80-97) fL MCH 29 (27-31) pg MCHC 32 (31-36) g/dl RDW 29 H (10.5-15) % Plt Count 449 (150-450) 10^3/ul MPV 7.0 L (7.4-10.4) fL Neut % (Auto) Pending Lymph % (Auto) Pending [place] % (Auto) Pending Eos % (Auto) Pending Baso % (Auto) Pending Absolute Neuts (auto) Pending Absolute Lymphs (auto) Pending Absolute Monos (auto) Pending Absolute Eos (auto) Pending Absolute Basos (auto) Pending Absolute Nucleated RBC Pending Nucleated RBC % Pending Lactic Acid 1.7 (0.5-2.0) mmol/L Microbiology and Other Data: Microbiology 06/11/18 16:21 Nasal Screen MRSA (PCR) - Final Nasal Mrsa Not Detected 06/11/18 14:45 Stool Gross Appearance - Final Stool C. difficile DNA Amplification - Final 027 Presumptive NEGATIVE Toxigenic C.diff POSITIVE 06/11/18 14:45 Stool Occult Blood (FLAVIA) - Final Stool Assess/Plan/Problems-Billing Assessment: - Patient Problems (1) GI bleed Current Visit: Yes Status: Acute Code(s): K92.2 - GASTROINTESTINAL HEMORRHAGE, UNSPECIFIED SNOMED Code(s): 61682798 Comment: Suspect UGI bleed with high BUN/creatinine ratio. IV pantoprazole infusion. Dr. Pacheco to do EGD 06/12. 2 U PC's given 06/11. Hold rivaroxaban , ASA. Follow H&H frequency depending on EGD findings. (2) CKD (chronic kidney disease) stage 3, GFR 30-59 ml/min Current Visit: No Status: Acute Code(s): N18.3 - CHRONIC KIDNEY DISEASE, STAGE 3 (MODERATE) SNOMED Code(s): 885860090 Comment: est GFR 47.2 06/11/18, 58.8 06/12/18. (3) Memory loss Current Visit: Yes Status: Acute Comment: I will discuss with her son. (4) HTN (hypertension) Current Visit: No Status: Acute Code(s): I10 - ESSENTIAL (PRIMARY) HYPERTENSION SNOMED Code(s): 36750163 Comment: losartan on hold (5) Hypothyroidism Current Visit: No Status: Acute Code(s): E03.9 - HYPOTHYROIDISM, UNSPECIFIED SNOMED Code(s): 77734140 Comment: TSH was low 05/02/18, reduce levothyroxine to 75 mcg daily . (6) Atrial fibrillation Current Visit: Yes Status: Acute Code(s): I48.91 - UNSPECIFIED ATRIAL FIBRILLATION SNOMED Code(s): 55336493 Comment: In NSR 06/11/18. AC on hold. (7) CAD (coronary artery disease) Current Visit: Yes Status: Acute Code(s): I25.10 - ATHSCL HEART DISEASE OF [place] CORONARY ARTERY W/O ANG PCTRS SNOMED Code(s): 56274893 Comment: Stents in 2011. (8) Fracture, tibia Current Visit: Yes Status: Acute Code(s): S82.209A - UNSP FRACTURE OF SHAFT OF UNSP TIBIA, INIT FOR CLOS FX SNOMED Code(s): 67395940 Comment: Distal left. I will discuss X-ray for evaluation of cast removal with orthpedic service.
[2018-06-12] MEDS ORDERED: Spiriva Inhaler DEVICE* 1 EACH DEVICE INH ONE (09:00)
[2018-06-12] MEDS: Tiotropium CAP.INH* CAP.INH/18 MCG (USE ORDER SET !) INH SCH (10:07)
[2018-06-12] MEDS: proPAFENone TAB* 150 MG PO SCH ×2 (10:37→21:09)
[2018-06-12] MEDS: Vancomycin CAP* 125 MG CAP PO SCH ×3 (10:37→20:01)
[2018-06-12] MEDS: D5W NS 0.9% 20Meq KCL 1000 ML* 1,000 ML IV SCH (10:40)
[2018-06-12] MEDS ORDERED: fentaNYL* 50 MCG/ML 2 ML VIAL (100 MCG VIAL) ONE (16:21)
[2018-06-12] MEDS ORDERED: Midazolam* 1 MG/ML 10 ML VIAL (10 MG) ONE (16:21)
--- NOTE | 2018-06-12 22:17 | PRO ---
DATE: 06/12/18 - ROOM #[id number] REFERRING PHYSICIAN: Haylee Milan MD; Ceci Osuna MD * PROCEDURE: Upper gastrointestinal endoscopy, BICAP hemostasis, small AVM, third portion duodenum. INDICATION: This 87-year-old woman was admitted with her hemoglobin in the 6' s. She had been passing loose black stools for a few days, duration is uncertain. She had been at [facility] for 5 weeks after admission here around [facility]. She underwent endoscopy on 05/03/18 looking for source for anemia. did not find any active bleeding or obvious culprits. He had duodenal biopsy and gastric biopsy. No ulcers were seen. She went to long term on baby aspirin, Xarelto (started 3 or 4 years ago), and PPI. Her son follows her tentatively, but is not aware of any red blood being passed. The patient is demented, but poor memory. She has not had any vomiting. She is C. diff positive today. Her DNR was temporarily reversed for the procedure. ENDOSCOPIST: Dr. Abdiel Montes. MEDICATION: Midazolam 2, fentanyl 50. FINDINGS: She is an elderly woman in the ICU. She was positioned on her side and very small increments of midazolam and fentanyl given with good tolerance. She had poor dentition with just a couple of spikes. Bite block was placed. EGD: Larynx - appearing dry. Esophagus - a vancomycin pill was in the mid esophagus. It did seem to be almost adherent to the wall. There was caked medication in the lower esophagus. Stomach - there was a small to moderate hiatal hernia, symmetric without any ulcer or stricture. Mucosa appeared smooth. She had a biopsy checked for Teixeira's previously with the results unknown. Generally normal mucosa in fundus, body, and antrum. No gastritis was seen. The pylorus appeared normal. Duodenum - the bulb and second portion appeared normal. There were several pinpoint erythematous spots in the third portion of duodenum and one small to medium fairly typical AVM 3 o'clock orientation, distal third portion. It was treated with BICAP probe at 20 blas with an initial flash of bleeding and then it stopped with additional treatment. IMPRESSION: 1. Esophageal dysmotility - care needs to be taken with swallowing pills, etc. 2. Small to medium hiatal hernia 3. Duodenal arteriovenous malformation - presence of this infers a high risk of other lesions further downstream such that this lesion being the culprit or a dominant contributor to her anemia is doubtful. It seems unlikely that the burden of anticoagulation is worth continuing with both aspirin and Plavix. Low dose aspirin alone would appear to be a lower risk option. [id number]/[facility] #: [id number] BERENICE
[2018-06-13] MEDS: Vancomycin CAP* 125 MG CAP PO SCH ×3 (00:08→14:03)
[2018-06-13] MEDS: D5W NS 0.9% 20Meq KCL 1000 ML* 1,000 ML IV SCH (00:11)
[2018-06-13 05:42] LABS: ABS Basophils 0 10^3/ul (0-0.2); ABS Eosinophils 0.1 10^3/ul (0-0.6); ABS Lymphocytes 1.2 10^3/ul (1.0-4.8); ABS Monocytes 1.4 10^3/ul (0-0.8); ABS Neutrophils 14.7 10^3/ul (1.5-7.7); ABS Nucleated RBC 0 10^3/ul; Eosinophil % 0.8 %; Hematocrit 29 % (35-47); Hemoglobin 9.1 g/dl (12.0-16.0); Lymphocyte % 6.8 %; Mean Corpuscular HGB Conc 32 g/dl (31-36); Mean Corpuscular Hemoglobin 29 pg (27-31); Mean Corpuscular Volume 92 fL (80-97); Mean Platelet Volume 7.5 fL (7.4-10.4); Nucleated Red Blood Cells % 0; Platelet Count 329 10^3/ul (150-450); Red Blood Count 3.15 10^6/ul (4.00-5.40); Red Cell Distribution Width 23 % (10.5-15); White Blood Count 17.5 10^3/ul (3.5-10.8)
[2018-06-13 05:55] LABS: EGFR Non-African American 71.2 (>60)
[2018-06-13] MEDS: Levothyroxine TAB* 75 MCG TAB PO SCH (06:41)
[2018-06-13] MEDS: Pantoprazole* 80 mg IN NS 80 MG/250 ML BAG IVPB SCH (07:27)
[2018-06-13] MEDS: Tiotropium CAP.INH* CAP.INH/18 MCG (USE ORDER SET !) INH SCH (07:38)
--- NOTE | 2018-06-13 08:58 | PN ---
Subjective Date of Service: 06/13/18 Interval History: C/O diarrhea. Little appetite. No pain. Family History: Findings - DM, lung ca. Social History: Findings - Quit smoking over 20 yrs ago. No alcohol abuse. Son Rogers Gonzalez is her SDM. Past Medical History: Findings - A fib, hypothyroid, CAD with stents 2011, HTN, PPM, CKD, COPD, BL TKA, BL cataract sx, tonsillectomy. Objective Active Medications: Aspirin (Aspirin 81 Mg Chew Tab*) 81 mg PO DAILY [facility] Ferrous Gluconate (Fergon Tab*) 325 mg PO DAILY [facility] Pantoprazole Sodium (Protonix Iv Bag*) 80 mg in 250 mls @ 25 mls/hr IVPB Q10H [facility] Stop: 06/13/18 18:00 Last Admin: 06/13/18 07:27 Dose: 25 mls/hr Potassium Chloride/Dextrose (D5w Ns 0.9% 20meq Kcl 1000 Ml*) 1,000 mls @ 75 mls /hr IV PER RATE [facility] Last Admin: 06/13/18 00:11 Dose: 75 mls/hr Levothyroxine Sodium (Synthroid Tab*) 75 mcg PO DAILY@0600 [facility] Last Admin: 06/13/18 06:41 Dose: 75 mcg Omeprazole (Prilosec Cap*) 20 mg PO 0600 [facility] Potassium Chloride (Klor Con Er Tab*) 10 meq PO TID [facility] Propafenone HCl (Rythmol*) 150 mg PO BID [facility] Last Admin: 06/12/18 21:09 Dose: 150 mg Tiotropium [place] (Spiriva Cap.Inh*) 1 cap INH DAILY [facility] Last Admin: 06/13/18 07:38 Dose: 1 puff Vancomycin HCl (Vancomycin Cap*) 125 mg PO QID [facility] Last Admin: 06/13/18 00:08 Dose: 125 mg Vital Signs - 8 hr 06/13/18 06/13/18 03:38 07:40 Temperature 97.5 F Pulse Rate 68 67 Respiratory 16 16 Rate Blood Pressure 120/54 (mmHg) O2 Sat by Pulse 96 98 Oximetry Oxygen Devices in Use Now: None Appearance: Alert, supine in bed, on bedpan. Somewhat uncomfortable due to bedpan. Eyes: No Scleral Icterus Neck: NL Appearance and Movements; NL JVP, No Thyroid Enlargement, Masses Respiratory: Symmetrical Chest Expansion and Respiratory Effort, Clear to Auscultation, Clear to Percussion Cardiovascular: NL Sounds; No Murmurs; No JVD, RRR, No Edema, - Abdominal: NL Sounds; No Tenderness; No Distention, No Hepatosplenomegaly, - Extremities: No Edema, No Clubbing, Cyanosis, - Skin: No Rash or Ulcers, No Nodules or Sclerosis, - Neurological: NL Sensation - Knows it is near [place]. No tremorl Cooperative. Result Diagrams: 06/13/18 05:26 06/13/18 05:26 Additional Lab and Data: Lab Results 06/11/18 06/11/18 Range/Units 12:41 12:41 WBC 26.9 H (3.5-10.8) 10^3/ul RBC 2.36 L (4.00-5.40) 10^6/ul Hgb 6.8 L (12.0-16.0) g/dl Hct 22 L (35-47) % MCV 91 (80-97) fL MCH 29 (27-31) pg MCHC 32 (31-36) g/dl RDW 29 H (10.5-15) % Plt Count 449 (150-450) 10^3/ul MPV 7.0 L (7.4-10.4) fL Neut % (Auto) Pending Lymph % (Auto) Pending [place] % (Auto) Pending Eos % (Auto) Pending Baso % (Auto) Pending Absolute Neuts (auto) Pending Absolute Lymphs (auto) Pending Absolute Monos (auto) Pending Absolute Eos (auto) Pending Absolute Basos (auto) Pending Absolute Nucleated RBC Pending Nucleated RBC % Pending Lactic Acid 1.7 (0.5-2.0) mmol/L Microbiology and Other Data: Microbiology 06/11/18 16:21 Nasal Screen MRSA (PCR) - Final Nasal Mrsa Not Detected 06/11/18 14:45 Stool Gross Appearance - Final Stool C. difficile DNA Amplification - Final 027 Presumptive NEGATIVE Toxigenic C.diff POSITIVE 06/11/18 14:45 Stool Occult Blood (FLAVIA) - Final Stool Assess/Plan/Problems-Billing Assessment: - Patient Problems (1) GI bleed Current Visit: Yes Status: Acute Code(s): K92.2 - GASTROINTESTINAL HEMORRHAGE, UNSPECIFIED SNOMED Code(s): 40519520 Comment: Suspect UGI bleed with high BUN/creatinine ratio. IV pantoprazole infusion. 2 U PC's given 06/11. Hold rivaroxaban, ASA. EGD showed duodenal AVM, treated. Likely also more distal AVM's. Per Dr. Montes, will use ASA 81 mg as only AC. Change to PO omeprazole 06/14. (2) CKD (chronic kidney disease) stage 3, GFR 30-59 ml/min Current Visit: No Status: Acute Code(s): N18.3 - CHRONIC KIDNEY DISEASE, STAGE 3 (MODERATE) SNOMED Code(s): 406333651 Comment: est GFR 47.2 06/11/18, 58.8 06/12/18, 71.2 06/13/18.. (3) Memory loss Current Visit: Yes Status: Acute Comment: I will discuss with her son. (4) HTN (hypertension) Current Visit: No Status: Acute Code(s): I10 - ESSENTIAL (PRIMARY) HYPERTENSION SNOMED Code(s): 61339146 Comment: losartan on hold (5) Hypothyroidism Current Visit: No Status: Acute Code(s): E03.9 - HYPOTHYROIDISM, UNSPECIFIED SNOMED Code(s): 12160912 Comment: TSH was low 05/02/18, reduce levothyroxine to 75 mcg daily . (6) Atrial fibrillation Current Visit: Yes Status: Acute Code(s): I48.91 - UNSPECIFIED ATRIAL FIBRILLATION SNOMED Code(s): 51682541 Comment: In NSR 06/11/18. ASA 81 mg for AC. (7) CAD (coronary artery disease) Current Visit: Yes Status: Acute Code(s): I25.10 - ATHSCL HEART DISEASE OF [place] CORONARY ARTERY W/O ANG PCTRS SNOMED Code(s): 46436050 Comment: Stents in 2011. (8) Fracture, tibia Current Visit: Yes Status: Acute Code(s): S82.209A - UNSP FRACTURE OF SHAFT OF UNSP TIBIA, INIT FOR CLOS FX SNOMED Code(s): 32579343 Comment: Distal left. Orthpedic service may remove cast to get better X- ray. (9) C. difficile diarrhea Current Visit: Yes Status: Acute Code(s): A04.72 - ENTEROCOLITIS D/T CLOSTRIDIUM DIFFICILE, NOT SPCF RECUR SNOMED Code(s): 0533134308242 Comment: Continue po vancomycin. (10) Urinary retention Current Visit: Yes Status: Acute Code(s): R33.9 - RETENTION OF URINE, UNSPECIFIED SNOMED Code(s): 360239657 Comment: Continue Evans drainage. Consider voiding trial at .
[2018-06-13] MEDS ORDERED: Ferrous Gluconate TAB* 324 MG TAB PO SCH (09:00)
[2018-06-13] MEDS ORDERED: Aspirin 81 mg CHEW TAB* 81 MG TAB.CHEW PO SCH (09:00)
[2018-06-13] MEDS: Potassium Chlor TAB* 10 MEQ TAB.ER PO SCH ×2 (09:23→14:03)
[2018-06-13] MEDS: proPAFENone TAB* 150 MG PO SCH (09:24)
[2018-06-13] MEDS ORDERED: Magnesium Oxide TAB* 400 MG PO SCH (11:00)
--- NOTE | 2018-06-13 12:33 | PN ---
Progress Note - Progress Note Date of Service: 06/13/18 Note: Time spent on discharge including exam of patient, discussion with patient, nurse, CM, Dr. Alvarado, SHALONDA Leal, review of EMR and preparation of discharge documents 50 minutes.
[2018-06-13 12:49] VITALS: BP 137/68
--- NOTE | 2018-06-13 13:19 | TRS ---
CC: Dr. Haylee Milan; [facility]. * DATE OF ADMISSION: 06/11/2018. DATE OF TRANSFER: 06/13/2018. HISTORY: This 87-year-old woman was sent from [facility] I believe because of diarrhea. The patient denied pain and emesis. She was a poor historian. She was felt to be having a GI bleed. She had an elevated BUN/creatinine ratio. Her hemoglobin and creatinine were significantly different than before. She received two units of blood. She was monitored in the Intensive Care Unit. Dr. Montes performed an endoscopy. He found a small duodenal AVM which he treated with BICAP. He felt it was likely that there were other AVM's more distal in the small intestine that he could not treat. He recommended that she not be given any anticoagulation other than aspirin 81 mg daily. Her Rivaroxaban was held throughout her hospital stay. Her test for C. difficile was positive and she was started on p.o. Vancomycin. Her left leg cast was changed by the orthopedic PA. She should follow-up with Dr. Hlil in two weeks for her leg fracture. FINAL DIAGNOSES: 1. 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 2. Chronic kidney disease, resolved. 3. Memory loss. 4. Hypertension. 5. Hypothyroidism. 6. Atrial fibrillation. 7. Coronary artery disease. 8. C. difficile diarrhea. MEDICATIONS ON TRANSFER: 1. Levothyroxine 75 mcg daily. 2. Vancomycin 125 mg p.o. q.i.d. for 12 more days. 3. Magnesium Oxide 400 mg daily. 4. Acetaminophen 650 mg every 6 hours prn. 5. Simvastatin 20 mg at bedtime. 6. Propafenone 150 mg b.i.d. 7. Ipratropium [place] two sprays both nares every morning prn. 8. Gabapentin 600 mg at bedtime. 9. Omeprazole 40 mg daily. 10. Ferrous Gluconate 325 mg b.i.d. 11. Calcium Carbonate/vitamin D3 one daily. 12. Aspirin 81 mg daily. 13. Tiotropium one capsule daily. CONDITION ON DISCHARGE: Stable. DISPOSITION ON DISCHARGE: Transfer to [facility]. [id number]/[facility] #: [id number] [facility]
--- NOTE | 2018-06-13 15:11 | PN ---
Progress Note - Progress Note Date of Service: 06/13/18 Note: Patient was seen and examined at bedside today for placement of new cast on her left ankle. Xrays were taken yesterday showing good andrey alignment. Discussed case with Dr Hill who request a new cast be placed as her former had become loose. She has no complaints today, the cast is comfortable and the LLE nonpainful. Cast removed, new well padded cast placed, tolerated well by patient and comfortable once dry. DP2+, sensation intact to light touch distally, capillary refill less than two seconds distally. New short leg cast placed, follow up with Dr Hill in 2 weeks, sooner with concerns.
[2018-06-14] MEDS ORDERED: Omeprazole CAP* 20 MG PO SCH (06:00)
== END 2018-06-13 14:30 | DRG 378 ==
LOC: ED 12:17 → ICU 14:55 → MEDTELE 06-12 23:39
PROVIDERS: ADMIT Internal Medicine; ATTEND Internal Medicine
PROC: 2W5 Placement, Anatomical Regions, Removal (ICD-10-PCS; principal; 2018-06-11)
PROC: 2W3TX2Z Immobilization of Left Foot using Cast (ICD-10-PCS; 2018-06-11)
PROC: 30233N1 Transfusion of Nonautologous Red Blood Cells into Peripheral Vein, Percutaneous Approach (ICD-10-PCS; 2018-06-11)
PROC: 0W3P8ZZ Control Bleeding in Gastrointestinal Tract, Via Natural or Artificial Opening Endoscopic (ICD-10-PCS; 2018-06-12)
DX: K55.21 Angiodysplasia of colon with hemorrhage (principal); A04.72 Enterocolitis due to Clostridium difficile, not specified as recurrent; I13.0 Hypertensive heart and chronic kidney disease with heart failure and stage 1 through stage 4 chronic kidney disease, or unspecified chronic kidney disease; R41.3 Other amnesia; E03.9 Hypothyroidism, unspecified; I48.91 Unspecified atrial fibrillation; I25.10 Atherosclerotic heart disease of native coronary artery without angina pectoris; N18.3 Chronic kidney disease, stage 3 (moderate); I95.9 Hypotension, unspecified; I50.9 Heart failure, unspecified; Z96.653 Presence of artificial knee joint, bilateral; E78.00 Pure hypercholesterolemia, unspecified; J44.9 Chronic obstructive pulmonary disease, unspecified; M19.90 Unspecified osteoarthritis, unspecified site; X58.XXXD Exposure to other specified factors, subsequent encounter; S82.302A Unspecified fracture of lower end of left tibia, initial encounter for closed fracture; Z96.643 Presence of artificial hip joint, bilateral; K44.9 Diaphragmatic hernia without obstruction or gangrene; K22.4 Dyskinesia of esophagus; R33.9 Retention of urine, unspecified; Z82.49 Family history of ischemic heart disease and other diseases of the circulatory system; Z87.440 Personal history of urinary (tract) infections; Z88.8 Allergy status to other drugs, medicaments and biological substances; Z79.82 Long term (current) use of aspirin; Z87.891 Personal history of nicotine dependence; Z95.5 Presence of coronary angioplasty implant and graft; Z95.0 Presence of cardiac pacemaker; Z98.42 Cataract extraction status, left eye; Z98.41 Cataract extraction status, right eye; Z90.89 Acquired absence of other organs; Z83.3 Family history of diabetes mellitus; Z80.9 Family history of malignant neoplasm, unspecified
CPT/HCPCS: 36415; 71045; 74177; 80048; 80053; 81003; 81015; 82270; 83605; 83735; 84484; 85025; 85060; 85610; 85730; 86850; 86900; 86901; 86922; 87040; 87045; 87046; 87077; 87086; 87186; 87493; 87641; 87899; 93005; 94640; 99156; 99157; 99285; A9270-GY; J0744; J2250; J3010; P9040; Q9967

== ENCOUNTER 2018-07-06 17:14 | Emergency (ER) | payer MEDICARE ==
[2018-07-06] MEDS ORDERED: NS 0.9% 500 ML* 500 ML IV ONE (17:29)
[2018-07-06 18:25] LABS: Albumin 2.6 g/dL (3.2-5.2); Albumin/Globulin Ratio 0.9 (1-3); BUN/Creatinine Ratio 11.4 (8-20); Calcium 8.6 mg/dL (8.6-10.3); EGFR Non-African American 79.5 (>60); Potassium 3.1 mmol/L (3.5-5.0); Total Bilirubin 0.3 mg/dL (0.2-1.0); Total Protein 5.6 g/dL (6.4-8.9)
[2018-07-06] MEDS ORDERED: Iohexol 300* (CONTRAST) 10 ML SDV IV ONE (18:33)
[2018-07-06 18:41] LABS: Hematocrit 31 % (35-47); Hemoglobin 10.1 g/dl (12.0-16.0); Mean Corpuscular HGB Conc 33 g/dl (31-36); Mean Corpuscular Hemoglobin 28 pg (27-31); Mean Corpuscular Volume 85 fL (80-97); Mean Platelet Volume 6.9 fL (7.4-10.4); Platelet Count 639 10^3/ul (150-450); Red Cell Distribution Width 20 % (10.5-15); White Blood Count 9.1 10^3/ul (3.5-10.8)
[2018-07-06 18:48] LABS: Lymphocytes % 26 %; Monocytes % 20 %; Neutrophil % 53 %; Polychromasia 1+
--- NOTE | 2018-07-06 18:49 | ED ---
Abdominal Pain/Female - HPI Summary HPI Summary: A 87 y/o female brought in by ambulance presents to the ED c/o diarrhea and distended abdomen. As per triage, "Pt arrives via EMS from [facility] for "possible Ileus". x-rays showed possible ileus. Hx constipation. Pt states she has been having small amounts of diarrhea the last few days". According to the patient, an XR was done in which revealed a possible ileus. Patient has been having a mild amount of diarrhea for the past few days. She noted that her abdomen is also distended. Patient has no PMHx of [place] and is on no blood thinners. Patient lives in senior living. Patient noted her stool was liquid this AM. - History of Current Complaint Chief Complaint: EDAbdPain Stated Complaint: POSS BOWL OBSTRUCTION Hx Obtained From: Patient Onset/Duration: Sudden Onset, Lasting Days, Still Present Timing: Constant Severity Currently: None Pain Intensity: 0 Pain Scale Used: 0-10 Numeric Radiates: No Aggravating Factor(s): Nothing Alleviating Factor(s): Nothing Associated Signs and Symptoms: Positive: Diarrhea Allergies/Adverse Reactions: Allergies Allergy/AdvReac Type Severity Reaction Status Date / Time amiodarone Allergy See Comment Verified 06/11/18 12:39 Home Medications: Home Medications Calcium Carbonate/Vitamin D3 [Oyster Shell Calcium-Vit D Tab] 1 tab PO DAILY 10/19 [History Confirmed 07/06/18] Docusate CAP* [Colace Cap*] 100 mg PO BID PRN 07/06/18 [History Confirmed ] Ferrous Sulfate TAB* 324 mg PO DAILY 07/06/18 [History Confirmed 07/06/18] Levothyroxine TAB* [Synthroid 75 MCG TAB*] 75 mcg PO DAILY@0537 07/06/18 [ History Confirmed 07/06/18] PMH/Surg Hx/FS Hx/Imm Hx Endocrine/Hematology History: Reports: Hx Anticoagulant Therapy, Hx Thyroid Disease, Hx Anemia Denies: Hx Blood Transfusions - Today was first blood trf, Hx Diabetes, Hx Unexplained Bleeding, Other Endocrine/Hematological Disorders Cardiovascular History: Reports: Hx Angina, Hx Angioplasty, Hx Auto Implanted Cardiovert Defib, Hx Congestive Heart Failure, Hx Coronary Artery Disease, Hx Hypercholesterolemia, Hx Hypertension - on medication, Hx Pacemaker/ICD, Hx Syncope, Other Cardiovascular Problems/Disorders - HEART DISEASE Denies: Hx Aneurysm, Hx Cardiac Arrest, Hx Cardiomegaly, Hx Congenital Heart Disease, Hx Deep Vein Thrombosis, Hx Embolism, Hx Hypotension, Hx Peripheral Vascular Disease, Hx Rheumatic Fever, Hx Valvular Heart Disease Respiratory History: Reports: Hx Chronic Obstructive Pulmonary Disease (COPD) Denies: Hx Asthma, Hx Chronic Bronchitis, Hx Cystic Fibrosis, Hx Lung Cancer , Hx Pleural Effusion, Hx Pneumonia, Hx Pulmonary Edema, Hx Pulmonary Embolism, Hx Seasonal Allergies GI History: Reports: Hx Obstructive Bowel Denies: Hx Ulcer History: Reports: Other Problems/Disorders - Chronic UTIs Denies: Hx Renal Disease Musculoskeletal History: Reports: Hx Arthritis, Hx Back Problems, Other Musculoskeletal History - L ankle fracture 05/02/2018 Sensory History: Reports: Hx Cataracts, Hx Contacts or Glasses Denies: Hx Hearing Aid Opthamlomology History: Reports: Hx Cataracts, Hx Contacts or Glasses Neurological History: Denies: Hx Dementia, Hx Developmental Delay, Hx Headaches, Hx Migraine, Hx Nerve Disease, Hx Seizures, Hx Spinal Cord Injury, Hx Transient Ischemic Attacks (TIA), Other Neuro Impairments/Disorders Psychiatric History: Denies: Hx Anxiety, Hx Attention Deficit Hyperactivity Disorder, Hx Depression, Hx Bipolar Disorder, Other Psychiatric Issues/Disorders - Cancer History Cancer Type, Location and Year: None reported - Surgical History Surgery Procedure, Year, and Place: Bilateral hips - , 1997, 2004. Pacemaker, stent.- 2011. bilat cataract surgery. Apr 2016- Appendectomy Hx Anesthesia Reactions: No - Immunization History Date of Influenza Vaccine: 2017 Infectious Disease History: No Infectious Disease History: Reports: Hx Shingles Denies: Hx Clostridium Difficile, Hx Hepatitis, Hx Human Immunodeficiency Virus (HIV), Hx of Known/Suspected MRSA, Hx Tuberculosis, Hx Known/Suspected VRE , Hx Known/Suspected VRSA, History Other Infectious Disease, Traveled Outside the [place] in Last 30 Days - Family History Known Family History: Positive: Cardiac Disease, Diabetes, Other - Cancer - Social History Alcohol Use: None Substance Use Type: Reports: None Hx Tobacco Use: No Smoking Status (MU): Former Smoker Have You Smoked in the Last Year: No Review of Systems Negative: Fever, Chills Positive: Other - NEGATIVE: DOUBLE VISION. Negative: Blurred Vision Negative: Sore Throat, Ear Ache Negative: Chest Pain Negative: Shortness Of Breath, Cough Positive: Abdominal Pain, Diarrhea, Other - NEGATIVE: BLOOD IN STOOL AND CONSTIPATION. Negative: Vomiting, Nausea Negative: dysuria, hematuria Positive: Other - NEGATIVE: NECK PAIN AND BACK PAIN. Negative: Edema Negative: Rash, Bruising Negative: Headache Negative: Anxious, Depressed All Other Systems Reviewed And Are Negative: No Physical Exam - Summary Physical Exam Summary: Appearance: Alert, conversive, nontoxic appearing Skin: Warm, dry, no mottling, no rashes, no contusions HEENT: EOMI, PERRL, moist mucous membranes Neck: No masses on the neck, supple Respiratory: Clear to auscultation, breath sounds present, no rales, no rhonchi , no wheezes Cardiovascular: RRR, pulses are symmetrical in both lower and upper extremities Abdomen: Soft, non-tender, distended abdomen Bowel Sounds: Present Musculoskeletal: No CVA tenderness, no obvious deformity, moving all extremities in a grossly normal manner Neurological: A&Ox3, CN II-XII Intact, moving all extremities symmetrically Psychiatric: Normal affect and mood Triage Information Reviewed: Yes Vital Signs On Initial Exam: Initial Vitals Temp Pulse Resp BP Pulse Ox 97.5 F 73 16 163/75 94 07/06/18 17:18 07/06/18 17:18 07/06/18 17:18 07/06/18 17:18 07/06/18 17:18 Vital Signs Reviewed: Yes Diagnostics - Vital Signs Vital Signs Temp Pulse Resp BP Pulse Ox 07/06/18 17:55 66 23 157/75 92 07/06/18 17:24 72 21 163/75 93 07/06/18 17:18 97.5 F 73 16 163/75 94 - Laboratory Lab Results: Lab Results 07/06/18 07/06/18 Range/Units 18:01 18:01 WBC 9.1 (3.5-10.8) 10^3/ul RBC 3.60 L (4.00-5.40) 10^6/ul Hgb 10.1 L (12.0-16.0) g/dl Hct 31 L (35-47) % MCV 85 (80-97) fL MCH 28 (27-31) pg MCHC 33 (31-36) g/dl RDW 20 H (10.5-15) % Plt Count 639 H D (150-450) 10^3/ul MPV 6.9 L (7.4-10.4) fL Neutrophils % Pending Normal RBC Morphology Pending Sodium 131 L (135-145) mmol/L Potassium 3.1 L (3.5-5.0) mmol/L Chloride 97 L (101-111) mmol/L Carbon Dioxide 27 (22-32) mmol/L Anion Gap 7 (2-11) mmol/L BUN 8 (6-24) mg/dL Creatinine 0.70 (0.51-0.95) mg/dL Est GFR ( Amer) 96.2 (>60) Est GFR (Non-Af Amer) 79.5 (>60) BUN/Creatinine Ratio 11.4 (8-20) Glucose 85 (70-100) mg/dL Calcium 8.6 (8.6-10.3) mg/dL Magnesium Pending Total Bilirubin 0.30 (0.2-1.0) mg/dL AST 13 (13-39) U/L ALT 6 L (7-52) U/L Alkaline Phosphatase 76 (34-104) U/L Total Protein 5.6 L (6.4-8.9) g/dL Albumin 2.6 L (3.2-5.2) g/dL Globulin 3.0 (2-4) g/dL Albumin/Globulin Ratio 0.9 L (1-3) Lipase Pending TSH Pending Result Diagrams: 07/06/18 18:01 07/06/18 18:01 Lab Statement: Any lab studies that have been ordered have been reviewed, and results considered in the medical decision making process. Abdominal Pain Fem Course/Dx - Course Course Of Treatment: A 87 y/o female brought in by ambulance presents to the ED c/o diarrhea and distended abdomen. According to the patient, an XR was done in which revealed a possible ileus. Patient has been having a mild amount of diarrhea for the past few days. She noted that her abdomen is also distended. Physical examination findings significant for distended abdomen. No laboratory scans were done. Hematology and Chemistry screens were done. No significant laboratory abnormalities were found. In the ED course, the patient received Omnipaque and IV fluids. 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 Patient will be signed out to Dr. Tad Bundy via Dr. Allyn Webber, pending CT A/P, Abdomen XR, and disposition, on shift change at 1900 on 07/06/2018. Patient will be signed out with a diagnosis of diarrhea. - Diagnoses Provider Diagnoses: Diarrhea Discharge - Sign-Out/Discharge Documenting (check all that apply): Sign-Out Patient - GREGOR Signing out patient TO: Tad Gregor Receiving patient FROM: Allyn Webber - Discharge Plan Condition: Stable Referrals: Haylee Milan MD [Primary Care Provider] - - Billing Disposition and Condition Condition: STABLE - Attestation Statements Document Initiated by Pearlibe: Yes Documenting Scribe: Kong Metcalf Provider For Whom Zenobia is Documenting (Include Credential): Allyn Webber MD Scribe Attestation: Kong Bland, scribed for Allyn Webber MD on 07/06/18 at 1904. Scribe Documentation Reviewed: Yes Provider Attestation: The documentation as recorded by the Kong barton accurately reflects the service I personally performed and the decisions made by me, Allyn Webber MD Status of Scribe Document: Viewed
[2018-07-06 18:52] LABS: ABS Basophils 0.1 10^3/ul (0-0.2); ABS Neutrophils 4.8 10^3/ul (1.5-7.7)
[2018-07-06 18:58] LABS: Magnesium 1.9 mg/dL (1.9-2.7)
[2018-07-06 19:36] LABS: TSH (Thyroid Stimulating Horm) 20.95 mcIU/mL (0.34-5.60)
[2018-07-06 20:57] LABS: Urine Appearance Clear; Urine Bacteria 1+ (Absent); Urine Bilirubin Negative (Negative); Urine Blood 1+ (Negative); Urine Color Yellow; Urine Glucose Negative (Negative); Urine Ketones Negative (Negative); Urine Nitrite Positive (Negative); Urine Protein Negative (Negative); Urine Red Blood Cell Trace(0-2/hpf) (Absent); Urine Urobilinogen Negative (Negative); Urine White Blood Cell 1+(6-10/hpf) (Absent)
--- NOTE | 2018-07-06 21:13 | ED ---
Course/Dx - Course Course Of Treatment: A 87 y/o female brought in by ambulance presents to the ED c/o diarrhea and distended abdomen. According to the patient, an XR was done in which revealed a possible ileus. Patient has been having a mild amount of diarrhea for the past few days. She noted that her abdomen is also distended. Physical examination findings significant for distended abdomen. No laboratory scans were done. Hematology and Chemistry screens were done. No significant laboratory abnormalities were found. In the ED course, the patient received Omnipaque and IV fluids. 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 Patient will be signed out to Dr. Tad Bundy via Dr. Allyn Webber, pending CT A/P, Abdomen XR, and disposition, on shift change at 1900 on 07/06/2018. Patient will be signed out with a diagnosis of diarrhea. - Diagnoses Provider Diagnoses: Diarrhea Discharge - Sign-Out/Discharge Documenting (check all that apply): Patient Departure - Discharge Plan Condition: Stable Disposition: HOME Patient Education Materials: Acute Diarrhea (ED) Referrals: Haylee Milan MD [Primary Care Provider] - Additional Instructions: Lab studies and CT of the abdomen did not show any sign of obstruction or other serious intra-abdominal condition. Pt is stable for return and can resume a normal diet for her. - Billing Disposition and Condition Condition: STABLE Disposition: Home - Attestation Statements Document Initiated by Scribe: No
--- NOTE | 2018-07-06 21:17 | ED ---
Progress - Progress Note Progress Note: This patient is signed out from Dr. Webber pending CT A/P results and disposition. - Results/Orders Results/Orders: CT A/P, as per radiologist, "1. The colon is diffusely distended with a mixture of solid and liquid stool and air through the rectum. No evidence of bowel obstruction. Mural thickening again suggested in the distal sigmoid colon suggesting colitis. 2. Small bilateral pleural effusions and tiny pericardial effusion. 3. Please note that evaluation of the pelvis is limited by streak artifact from bilateral hip prostheses. 4. Other nonemergent findings detailed above, unchanged since prior study." Course/Dx - Course Course Of Treatment: A 87 y/o female presents swithdiarrhea and distended abdomen. According to the patient, an XR was done in which revealed a possible ileus. Patient is signed out from Dr. Lang awaiting CT A/P results. CT A/P reveals: "1. The colon is diffusely distended with a mixture of solid and liquid stool. and air through the rectum. No evidence of bowel obstruction. Mural thickening. again suggested in the distal sigmoid colon suggesting colitis. 2. Small bilateral pleural effusions and tiny pericardial effusion. 3. Please note that evaluation of the pelvis is limited by streak artifact from. bilateral hip prostheses. 4. Other nonemergent findings detailed above, unchanged since prior study. " as per radiologist. Patient will be dishcarged and is agreeable with this plan. - Diagnoses Provider Diagnoses: Diarrhea Discharge - Sign-Out/Discharge Documenting (check all that apply): Patient Departure - discharge - Discharge Plan Condition: Stable Patient Education Materials: Acute Diarrhea (ED) Referrals: Haylee Milan MD [Primary Care Provider] - Additional Instructions: Lab studies and CT of the abdomen did not show any sign of obstruction or other serious intra-abdominal condition. Pt is stable for return and can resume a normal diet for her. - Attestation Statements Document Initiated by Scribe: Yes Documenting Scribe: Araceli Orellana Provider For Whom Zenobia is Documenting (Include Credential): Tad Bundy MD Scribe Attestation: Araceli Bland, scribed for Tad Bundy MD on 07/06/18 at [id number]. Status of Scribe Document: Ready
[2018-07-06 22:01] VITALS: BP 151/70
--- NOTE | 2018-07-10 14:28 | PN ---
Progress Note - Progress Note Date of Service: 07/06/18 Note: Pt. seen in ED 07/06. Urine culture today is growing 75-100k e. coli with multiresistance. I spoke with Lindsay, nurse at [facility], at [phone]. Culture faxed over and [employer] will start antibx.
== END 2018-07-06 22:00 | disposition home or self-care (01) ==
LOC: ED 17:14
DX: R19.7 Diarrhea, unspecified (principal); R14.0 Abdominal distension (gaseous); Z79.01 Long term (current) use of anticoagulants; Z87.891 Personal history of nicotine dependence
CPT/HCPCS: 36415; 74018; 74177; 80053; 81003; 81015; 83690; 83735; 84443; 85025; 85060; 87077; 87086; 87186; 96360; 99283; Q9967

== ENCOUNTER → 2018-09-08 15:35 | Emergency (ER) | payer MEDICARE ==
--- NOTE | 2018-09-08 16:16 | ED ---
Lower Extremity - HPI Summary HPI Summary: Patient is an 88-year-old female who presents emergency department for evaluation after falling out of bed. Patient resides at [facility]. Patient has a history of dementia and does not ambulate. Pt. reportedly rolled out of her bed onto the floor just prior to arrival. Fall was unwitnessed. Pt. is a limited historian. Dementia at baseline. Pt. reportedly told nurse she has low back pain, right hip pain, and left knee pain. She is not anticoagulated. ROS limited secondary to dementia. Sxs are mild in severity. No current modifying factors. No report of recent illness. - History of Current Complaint Chief Complaint: EDExtremityLower Stated Complaint: HIP PAIN, AND KNEE PAIN PER EMS Time Seen by Provider: 09/08/18 15:53 Hx Obtained From: Patient Pain Intensity: 4 - Allergies/Home Medications Allergies/Adverse Reactions: Allergies Allergy/AdvReac Type Severity Reaction Status Date / Time amiodarone Allergy See Comment Verified 07/10/18 17:27 PMH/Surg Hx/FS Hx/Imm Hx Previously Healthy: Yes Endocrine/Hematology History: Reports: Hx Anticoagulant Therapy, Hx Thyroid Disease, Hx Anemia Denies: Hx Blood Transfusions - Today was first blood trf, Hx Diabetes, Hx Unexplained Bleeding, Other Endocrine/Hematological Disorders Cardiovascular History: Reports: Hx Angina, Hx Angioplasty, Hx Auto Implanted Cardiovert Defib, Hx Congestive Heart Failure, Hx Coronary Artery Disease, Hx Hypercholesterolemia, Hx Hypertension - on medication, Hx Pacemaker/ICD, Hx Syncope, Other Cardiovascular Problems/Disorders - HEART DISEASE Denies: Hx Aneurysm, Hx Cardiac Arrest, Hx Cardiomegaly, Hx Congenital Heart Disease, Hx Deep Vein Thrombosis, Hx Embolism, Hx Hypotension, Hx Peripheral Vascular Disease, Hx Rheumatic Fever, Hx Valvular Heart Disease Respiratory History: Reports: Hx Chronic Obstructive Pulmonary Disease (COPD) Denies: Hx Asthma, Hx Chronic Bronchitis, Hx Cystic Fibrosis, Hx Lung Cancer , Hx Pleural Effusion, Hx Pneumonia, Hx Pulmonary Edema, Hx Pulmonary Embolism, Hx Seasonal Allergies GI History: Reports: Hx Obstructive Bowel Denies: Hx Ulcer History: Reports: Other Problems/Disorders - Chronic UTIs Denies: Hx Renal Disease Musculoskeletal History: Reports: Hx Arthritis, Hx Back Problems, Other Musculoskeletal History - L ankle fracture 05/02/2018 Sensory History: Reports: Hx Cataracts, Hx Contacts or Glasses Denies: Hx Hearing Aid Opthamlomology History: Reports: Hx Cataracts, Hx Contacts or Glasses Neurological History: Denies: Hx Dementia, Hx Developmental Delay, Hx Headaches, Hx Migraine, Hx Nerve Disease, Hx Seizures, Hx Spinal Cord Injury, Hx Transient Ischemic Attacks (TIA), Other Neuro Impairments/Disorders Psychiatric History: Denies: Hx Anxiety, Hx Attention Deficit Hyperactivity Disorder, Hx Depression, Hx Bipolar Disorder, Other Psychiatric Issues/Disorders - Cancer History Cancer Type, Location and Year: None reported - Surgical History Surgery Procedure, Year, and Place: Bilateral hips - [place], 1997, 2004. Pacemaker, stent.- 2011. bilat cataract surgery. Apr 2016- Appendectomy Hx Anesthesia Reactions: No - Immunization History Date of Influenza Vaccine: 2017 Infectious Disease History: Unable to Obtain/Confirm Infectious Disease History: Reports: Hx Shingles Denies: Hx Clostridium Difficile, Hx Hepatitis, Hx Human Immunodeficiency Virus (HIV), Hx of Known/Suspected MRSA, Hx Tuberculosis, Hx Known/Suspected VRE , Hx Known/Suspected VRSA, History Other Infectious Disease, Traveled Outside the [place] in Last 30 Days - Family History Known Family History: Positive: Cardiac Disease, Diabetes, Other - Cancer - Social History Occupation: Retired [facility]: [facility] Alcohol Use: None Substance Use Type: Reports: None Hx Tobacco Use: No Smoking Status (MU): Former Smoker Have You Smoked in the Last Year: No Review of Systems - ROS Summary Review of Systems Summary: ROS is limited secondary to pt.'s dementia. Positive: Other - left knee pain and swelling Positive: Other - abrasion to left knee All Other Systems Reviewed And Are Negative: No Physical Exam Triage Information Reviewed: Yes Vital Signs On Initial Exam: Initial Vitals Temp Pulse Resp BP Pulse Ox 97.6 F 80 16 164/84 94 09/08/18 15:42 09/08/18 15:42 09/08/18 15:42 09/08/18 15:42 09/08/18 15:42 Vital Signs Reviewed: Yes Appearance: Positive: Well-Appearing - Pt. lying in bed in NAD. Awake and alert. Follows commands. Skin: Positive: Warm, Dry Head/Face: Positive: Normal Head/Face Inspection - Healing bruise noted to right upper forehead, otherwise no scalp hematoma or laceration noted. Eyes: Positive: Normal, EOMI, GARRY Neck: Positive: Supple, Nontender Respiratory/Lung Sounds: Positive: Clear to Auscultation, Breath Sounds Present Cardiovascular: Positive: Normal, RRR Abdomen Description: Positive: Nontender, Soft Musculoskeletal: Positive: Other - Marked edema to left knee with overlying superficial abrasion. Normal pulses. Moving UEs without pain. No pain with pelvic rock. Neurological: Positive: CN Intact II-III Psychiatric: Positive: Affect/Mood Appropriate Diagnostics - Vital Signs Vital Signs Temp Pulse Resp BP Pulse Ox 09/08/18 15:42 97.6 F 80 16 164/84 94 - Laboratory Lab Statement: Any lab studies that have been ordered have been reviewed, and results considered in the medical decision making process. Lower Extremity Course/Dx - Course Course Of Treatment: Pt. presenting after fall out of bed. History is limited secondary to pt.'s dementia. She has no evidence of head trauma on exam. VS stable. Xrays of lumbar spine, pelvis and knee ordered and are negative for obvious fx or dislocation per radiology. Pt.'s son presented to the ER after xrays. Son states that he had breakfast with pt. this morning and she was at her baseline. Son states that pt. is currently at her baseline. Son states she has been having an issue with rolling out of bed lately. He states [facility] usually keeps a mat on floor but it was being cleaned today when she fell. He notes that pt. typically does not ambulate. Son is comfortable with dc back to [facility]. Pt. will need fu apt. with PCP. To keep wound clean and dry. Tylenol for pain as directed. To return to ER if sxs change or worsen. - Diagnoses Differential Diagnosis/HQI/PQRI: Positive: Contusion, Fracture (Closed), Sprain , Strain Provider Diagnoses: Fall, Knee contusion, Abrasion Discharge - Sign-Out/Discharge Documenting (check all that apply): Patient Departure Patient Received Moderate/Deep Sedation with Procedure: No - Discharge Plan Condition: Good Disposition: HALF-WAY FACILITY Patient Education Materials: Abrasion (ED), Knee Pain (ED) Referrals: Haylee Milan MD [Primary Care Provider] - Additional Instructions: Schedule a follow up appointment with PCP Keep wound clean and dry Ice knee intermittently Tylenol for pain as directed Return to ER if symptoms change or worsen - Billing Disposition and Condition Condition: GOOD Disposition: Senior Care Facility
[2018-09-08 18:23] VITALS: BP 172/97
== END ==
LOC: ED 15:35
DX: S80.00XA Contusion of unspecified knee, initial encounter (principal); T14.8XXA Other injury of unspecified body region, initial encounter; M25.551 Pain in right hip; Z79.01 Long term (current) use of anticoagulants; J44.9 Chronic obstructive pulmonary disease, unspecified; Z87.891 Personal history of nicotine dependence; W19.XXXA Unspecified fall, initial encounter; Y92.9 Unspecified place or not applicable
CPT/HCPCS: 72100; 72170; 99282